=== PATIENT | female | born 1980 | race Caucasian/White ===

== ENCOUNTER 2017-04-16 12:14 | Emergency (ER) | payer BC, OTHER ==
[2017-04-16 12:24] VITALS: BP 129/79; PULSE 102; RESP 20; TEMP 100.4
--- NOTE | 2017-04-16 12:56 | ED ---
ENT HPI - General Chief complaint: ENT Stated complaint: Sore Throat Time Seen by Provider: 04/16/17 12:28 Source: patient Mode of arrival: ambulatory Limitations: no limitations - History of Present Illness MD complaint: sore throat Onset/Timin (Patient woke up with sore throat this morning) -: days(s) Location: throat Severity: moderate Severity scale (1-10): 8 Quality: burning, sharp Consistency: constant Improves with: none Worsens with: swallowing Context-Epistaxis: history of similar (Patient had 2 episodes of strep throat in the past, last one a year ago) Context- Dental: other (Patient had 6 teeth pulled yesterday, 3 on the upper left side and 3 on her lower left side.) Associated Symptoms: fever, pain with swallowing - Related Data Home Medications Medication Instructions Recorded Confirmed Bismuth Subsalicylate 262 mg PO BID PRN 11/03/16 11/03/16 [Pepto-Bismol] Naproxen 500 mg PO Q12HR PRN 11/03/16 11/03/16 Previous Rx's Medication Instructions Recorded Famotidine [Pepcid] 20 mg PO DAILY #7 tablet 11/03/16 Ondansetron Odt [Zofran Odt] 4 mg PO Q8HR PRN #12 tab 11/03/16 Penicillin V Potassium [Pen Vee K] 500 mg PO BID #20 tab 04/16/17 Allergies Allergy/AdvReac Type Severity Reaction Status Date / Time venom-honey bee Allergy Anaphylaxis Verified 11/03/16 16:42 [bee venom (honey bee)] Review of Systems ROS Statement: Those systems with pertinent positive or pertinent negative responses have been documented in the HPI. ROS Other: All systems not noted in ROS Statement are negative. Past Medical History Past Medical History: No Reported History Additional Past Medical History / Comment(s): recent strep throat History of Any Multi-Drug Resistant Organisms: None Reported Past Surgical History: Appendectomy, Cholecystectomy, Hernia Repair, Tubal Ligation Additional Past Surgical History / Comment(s): d&c Past Psychological History: Anxiety, Bipolar, Depression Smoking Status: Current every day smoker Past Alcohol Use History: Occasional Past Drug Use History: None Reported General Exam Limitations: no limitations General appearance: alert, in no apparent distress Head exam: Present: atraumatic, normocephalic, normal inspection Eye exam: Present: normal appearance ENT exam: Present: mucous membranes moist, normal external ear exam Expanded Mouth exam: Present: tongue normal. Absent: drooling, trismus Throat exam: tonsillar erythema, tonsillar exudate (Bilateral) Neck exam: Present: normal inspection, tenderness (Left anterior neck), full ROM , lymphadenopathy (Left cervical lymphadenopathy) Respiratory exam: Present: normal lung sounds bilaterally. Absent: respiratory distress, wheezes, rales, rhonchi, stridor Cardiovascular Exam: Present: normal rhythm, tachycardia, normal heart sounds. Absent: systolic murmur GI/Abdominal exam: Present: soft, normal bowel sounds. Absent: distended, tenderness, guarding, rebound, rigid Extremities exam: Present: normal inspection, full ROM, normal capillary refill. Absent: tenderness Neurological exam: Present: alert, oriented X3, normal gait, other (No focal deficits noted) Psychiatric exam: Present: normal affect, normal mood Skin exam: Present: warm, dry, intact, normal color. Absent: rash Course Vital Signs 04/16/17 12:22 Temperature 100.4 F H Pulse Rate 102 H Respiratory 20 Rate Blood Pressure 129/79 O2 Sat by Pulse 99 Oximetry Medical Decision Making - Medical Decision Making Streptococcal pharyngitis. Patient placed on penicillin for 10 days. Patient instructed to follow-up with primary care physician. Patient instructed to return to the emergency department if symptoms do not improve or get worse. Patient agrees with treatment plan. Discharge instructions and return parameters reviewed. - Lab Data Lab Results 04/16/17 Range/Units 12:25 Group A Strep Rapid Positive A (Negative) Disposition Clinical Impression: Streptococcal sore throat Disposition: HOME SELF-CARE Condition: Good Instructions: Strep Throat (ED) Additional Instructions: Please finish antibiotics as prescribed. Continue Motrin or Tylenol for pain. Follow-up with primary care physician as directed. Please return to the emergency department if symptoms do not improve or get worse. Prescriptions: Penicillin V Potassium [Pen Vee K] 500 mg PO BID #20 tab Referrals: Haim Ash MD [Primary Care Provider] - 1-2 days Time of Disposition: 12:54
== END 2017-04-16 13:10 | disposition home or self-care (01) ==
LOC: EC 12:14
DX: J02.0 Streptococcal pharyngitis (principal); F17.200 Nicotine dependence, unspecified, uncomplicated; Z91.030 Bee allergy status
CPT/HCPCS: 87430; 99283

== ENCOUNTER 2017-06-04 21:46 | Emergency (ER) | payer BC, OTHER ==
[2017-06-04] MEDS ORDERED: SODIUM CHLORIDE 0.9% 1,000 ML IV STA (22:19)
[2017-06-04] MEDS ORDERED: ONDANSETRON 4 MG/2 ML VIAL IVP STA (22:19)
--- NOTE | 2017-06-04 22:33 | ED ---
Nausea/Vomiting/Diarrhea HPI - General Chief complaint: Nausea/Vomiting/Diarrhea Stated complaint: vomiting Time Seen by Provider: 06/04/17 22:15 Source: patient, RN notes reviewed Mode of arrival: ambulatory Limitations: no limitations - History of Present Illness Initial comments: This a 36-year-old female presents emergency Department chief complaint nausea vomiting diarrhea. Patient states his symptoms started primarily this morning she had a few episodes the day but states that it resolved. Patient states she has no abdominal pain this time denies chest pain or shortness of breath. Denies fever, chills, night sweats. Patient states that she's had a prior cholecystomy, appendectomy hernia repair and D&C. She has no dysuria no hematuria denies any flank pain. She states that she's been trying to keep things down throughout the day but states that she is vomiting bile at this time. Denies any hematemesis or coffee-ground emesis. - Related Data Home Medications Medication Instructions Recorded Confirmed Citalopram Hydrobromide [CeleXA] 20 mg PO DAILY 06/04/17 06/04/17 QUEtiapine [SEROquel] 50 mg PO HS 06/04/17 06/04/17 Previous Rx's Medication Instructions Recorded Ondansetron Odt [Zofran Odt] 4 mg PO Q8HR PRN #12 tab 11/03/16 Ondansetron Odt [Zofran Odt] 4 mg PO Q8HR PRN #10 tab 06/05/17 Allergies Allergy/AdvReac Type Severity Reaction Status Date / Time venom-honey bee Allergy Anaphylaxis Verified 06/04/17 22:15 [bee venom (honey bee)] Review of Systems ROS Statement: Those systems with pertinent positive or pertinent negative responses have been documented in the HPI. ROS Other: All systems not noted in ROS Statement are negative. Past Medical History Past Medical History: No Reported History Additional Past Medical History / Comment(s): recent strep throat History of Any Multi-Drug Resistant Organisms: None Reported Past Surgical History: Appendectomy, Cholecystectomy, Hernia Repair, Tubal Ligation Additional Past Surgical History / Comment(s): d&c Past Psychological History: Anxiety, Bipolar, Depression Smoking Status: Current every day smoker Past Alcohol Use History: Occasional Past Drug Use History: None Reported General Exam Limitations: no limitations General appearance: alert, in no apparent distress Head exam: Present: atraumatic, normocephalic, normal inspection Respiratory exam: Present: normal lung sounds bilaterally. Absent: respiratory distress, wheezes, rales, rhonchi, stridor Cardiovascular Exam: Present: regular rate, normal rhythm, normal heart sounds. Absent: systolic murmur, diastolic murmur, rubs, gallop, clicks GI/Abdominal exam: Present: soft, normal bowel sounds. Absent: distended, tenderness, guarding, rebound, rigid Back exam: Absent: CVA tenderness (R), CVA tenderness (L) Skin exam: Present: warm, dry, intact, normal color. Absent: rash Course Vital Signs 06/04/17 22:10 Temperature 99.1 F Pulse Rate 77 Respiratory 20 Rate Blood Pressure 126/77 O2 Sat by Pulse 99 Oximetry Medical Decision Making - Medical Decision Making 36-year-old female presented emergency for nausea vomiting and some diarrhea. Patient's lab work is unremarkable. Patient does feel better after antiemetics , fluids. She most likely has gastroenteritis. Patient discharged on Zofran. Patient will follow-up with primary care physician in one to 2 days patient agrees to plan. - Lab Data Result diagrams: 06/04/17 23:20 06/04/17 23:20 Lab Results 06/04/17 06/04/17 06/04/17 Range/Units 23:20 23:20 23:20 WBC 10.3 (3.8-10.6) k/uL RBC 4.57 (3.80-5.40) m/uL Hgb 14.0 (11.4-16.0) gm/dL Hct 42.2 (34.0-46.0) % MCV 92.2 (80.0-100.0) fL MCH 30.7 (25.0-35.0) pg MCHC 33.3 (31.0-37.0) g/dL RDW 13.6 (11.5-15.5) % Plt Count 296 (150-450) k/uL Neutrophils % 66 % Lymphocytes % 25 % Monocytes % 5 % Eosinophils % 3 % Basophils % 1 % Neutrophils # 6.8 (1.3-7.7) k/uL Lymphocytes # 2.6 (1.0-4.8) k/uL Monocytes # 0.5 (0-1.0) k/uL Eosinophils # 0.3 (0-0.7) k/uL Basophils # 0.1 (0-0.2) k/uL Sodium 141 (137-145) mmol/L Potassium 4.1 (3.5-5.1) mmol/L Chloride 107 (98-107) mmol/L Carbon Dioxide 25 (22-30) mmol/L Anion Gap 9 mmol/L BUN 9 (7-17) mg/dL Creatinine 0.70 (0.52-1.04) mg/dL Est GFR (MDRD) Af Amer >60 (>60 ml/min/1.73 sqM) Est GFR (MDRD) Non-Af >60 (>60 ml/min/1.73 sqM) Glucose 89 (74-99) mg/dL Calcium 9.4 (8.4-10.2) mg/dL Total Bilirubin 0.5 (0.2-1.3) mg/dL AST 19 (14-36) U/L ALT 29 (9-52) U/L Alkaline Phosphatase 97 (38-126) U/L Total Protein 7.2 (6.3-8.2) g/dL Albumin 4.1 (3.5-5.0) g/dL Amylase 64 (30-110) U/L Lipase 109 (23-300) U/L Urine Color Yellow Urine Appearance Clear (Clear) Urine pH 7.5 (5.0-8.0) Ur Specific [place] 1.010 (1.001-1.035) Urine Protein Negative (Negative) Urine Glucose (UA) Negative (Negative) Urine Ketones Negative (Negative) Urine Blood Negative (Negative) Urine Nitrite Negative (Negative) Urine Bilirubin Negative (Negative) Urine Urobilinogen <2.0 (<2.0) mg/dL Ur Leukocyte Esterase Negative (Negative) Urine HCG, Qual (Not Detectd) 06/04/17 Range/Units 23:20 WBC (3.8-10.6) k/uL RBC (3.80-5.40) m/uL Hgb (11.4-16.0) gm/dL Hct (34.0-46.0) % MCV (80.0-100.0) fL MCH (25.0-35.0) pg MCHC (31.0-37.0) g/dL RDW (11.5-15.5) % Plt Count (150-450) k/uL Neutrophils % % Lymphocytes % % Monocytes % % Eosinophils % % Basophils % % Neutrophils # (1.3-7.7) k/uL Lymphocytes # (1.0-4.8) k/uL Monocytes # (0-1.0) k/uL Eosinophils # (0-0.7) k/uL Basophils # (0-0.2) k/uL Sodium (137-145) mmol/L Potassium (3.5-5.1) mmol/L Chloride (98-107) mmol/L Carbon Dioxide (22-30) mmol/L Anion Gap mmol/L BUN (7-17) mg/dL Creatinine (0.52-1.04) mg/dL Est GFR (MDRD) Af Amer (>60 ml/min/1.73 sqM) Est GFR (MDRD) Non-Af (>60 ml/min/1.73 sqM) Glucose (74-99) mg/dL Calcium (8.4-10.2) mg/dL Total Bilirubin (0.2-1.3) mg/dL AST (14-36) U/L ALT (9-52) U/L Alkaline Phosphatase (38-126) U/L Total Protein (6.3-8.2) g/dL Albumin (3.5-5.0) g/dL Amylase (30-110) U/L Lipase (23-300) U/L Urine Color Urine Appearance (Clear) Urine pH (5.0-8.0) Ur Specific [place] (1.001-1.035) Urine Protein (Negative) Urine Glucose (UA) (Negative) Urine Ketones (Negative) Urine Blood (Negative) Urine Nitrite (Negative) Urine Bilirubin (Negative) Urine Urobilinogen (<2.0) mg/dL Ur Leukocyte Esterase (Negative) Urine HCG, Qual Not Detected (Not Detectd) Disposition Clinical Impression: Gastroenteritis Disposition: HOME SELF-CARE Condition: Stable Instructions: Acute Nausea and Vomiting (ED) Additional Instructions: Please return to the Emergency Department if symptoms worsen or any other concerns. Prescriptions: Ondansetron Odt [Zofran Odt] 4 mg PO Q8HR PRN #10 tab PRN Reason: Nausea Referrals: Haim Ash MD [Primary Care Provider] - 1-2 days Time of Disposition: 00:26
[2017-06-04 23:56] LABS: Basophils # (A) 0.1 k/uL (0-0.2); Basophils % (A) 1 %; CH 31.3; CHCM 34.1; Eosinophils # (A) 0.3 k/uL (0-0.7); Eosinophils % (A) 3 %; HCT 42.2 % (34.0-46.0); HDW 2.35; Luc # (Auto) 0.14; Luc % (Auto) 1; Lymphocytes # (A) 2.6 k/uL (1.0-4.8); Lymphocytes % (A) 25 %; MCH 30.7 pg (25.0-35.0); MCHC 33.3 g/dL (31.0-37.0); MCV 92.2 fL (80.0-100.0); Mean Platelet Volume 7.7; Monocytes # (A) 0.5 k/uL (0-1.0); Monocytes % (A) 5 %; Neutrophils # (A) 6.8 k/uL (1.3-7.7); Neutrophils % (A) 66 %; RBC 4.57 m/uL (3.80-5.40); RDW 13.6 % (11.5-15.5); WBC 10.3 k/uL (3.8-10.6); WBC (Perox) 9.81
[2017-06-04 23:57] LABS: Appearance,Urine Clear (Clear); Bilirubin,Urine Negative (Negative); Glucose,Urine (UA) Negative (Negative); Ketones,Urine Negative (Negative); Leukocyte Esterase,Urine Negative (Negative); Nitrite,Urine Negative (Negative); PH, Urine 7.5 (5.0-8.0); Protein,Urine Negative (Negative); UA Billing (MACRO vs. MICRO) CHEM; Urobilinogen,Urine <2.0 mg/dL (<2.0)
[2017-06-05] MEDS ORDERED: ONDANSETRON 4 MG/2 ML VIAL IVP STA (00:08)
[2017-06-05 00:11] LABS: ALT 29 U/L (9-52); AST 19 U/L (14-36); Alkaline Phosphatase 97 U/L (38-126); Amylase 64 U/L (30-110); Anion Gap 9 mmol/L; Blood Urea Nitrogen 9 mg/dL (7-17); Calcium 9.4 mg/dL (8.4-10.2); Carbon Dioxide 25 mmol/L (22-30); Chloride 107 mmol/L (98-107); Glucose 89 mg/dL (74-99); Non-African American GFR(MDRD) >60 (>60 ml/min/1.73 sqM); Potassium 4.1 mmol/L (3.5-5.1); Sodium 141 mmol/L (137-145); Total Bilirubin 0.5 mg/dL (0.2-1.3); Total Protein 7.2 g/dL (6.3-8.2)
[2017-06-05 01:23] VITALS: BP 116/66; PULSE 60; RESP 18; TEMP 97.5
== END 2017-06-05 01:22 | disposition home or self-care (01) ==
LOC: EC 21:46
DX: K52.9 Noninfective gastroenteritis and colitis, unspecified (principal); F31.9 Bipolar disorder, unspecified; F17.200 Nicotine dependence, unspecified, uncomplicated; Z90.49 Acquired absence of other specified parts of digestive tract; Z91.030 Bee allergy status; Z79.899 Other long term (current) drug therapy
CPT/HCPCS: 99284; 96374; 96376; 96361 ×2; 36415; 80053; 82150; 83690; 85025; 81003; 81025; J2405 ×2

== ENCOUNTER 2017-06-07 07:23 | Emergency (ER) | payer BC, OTHER ==
[2017-06-07] MEDS ORDERED: RX INFO: IV CONTRAST WAS GIVEN 1 EACH MISC MISCELLANE PRN (08:20)
[2017-06-07] MEDS ORDERED: SODIUM CHLORIDE 0.9% 1,000 ML IV STA ×2 (08:20)
[2017-06-07] MEDS ORDERED: ONDANSETRON 4 MG/2 ML VIAL IVP STA (08:20)
[2017-06-07] MEDS ORDERED: LORazepam 2 MG/ML SYRINGE IV STA (08:20)
[2017-06-07] MEDS ORDERED: SODIUM CHLORIDE 0.9% 500 ML IV STA (08:20)
[2017-06-07] MEDS ORDERED: MORPHINE SULFATE 4 MG/ML SYRINGE IV STA (08:20)
--- NOTE | 2017-06-07 09:05 | ED ---
General Adult HPI - General Chief complaint: Nausea/Vomiting/Diarrhea Stated complaint: nausea,vomiting Time Seen by Provider: 06/07/17 07:24 Source: patient, EMS, RN notes reviewed, old records reviewed Mode of arrival: EMS Limitations: no limitations - History of Present Illness Initial comments: This is a 36-year-old female to the ER for evaluation. Patient's intake for evaluation of severe nausea vomiting. Intractable nausea vomiting or abdominal pain. No diarrhea no fevers. Patient does have history of gout pain history of cholecystectomy. No again no recent fevers. Patient was in ER 2 days ago for similar symptoms, they had improved but over last night and today have severely worsened. Again no travel history, no family members with similar sick contacts. No diarrhea - Related Data Home Medications Medication Instructions Recorded Confirmed Citalopram Hydrobromide [CeleXA] 20 mg PO DAILY 06/04/17 06/07/17 QUEtiapine [SEROquel] 50 mg PO HS 06/04/17 06/07/17 Previous Rx's Medication Instructions Recorded Ondansetron Odt [Zofran Odt] 4 mg PO Q8HR PRN #12 tab 11/03/16 Allergies Allergy/AdvReac Type Severity Reaction Status Date / Time venom-honey bee Allergy Anaphylaxis Verified 06/07/17 08:32 [bee venom (honey bee)] Review of Systems ROS Statement: Those systems with pertinent positive or pertinent negative responses have been documented in the HPI. ROS Other: All systems not noted in ROS Statement are negative. Past Medical History Past Medical History: No Reported History Additional Past Medical History / Comment(s): recent strep throat History of Any Multi-Drug Resistant Organisms: None Reported Past Surgical History: Appendectomy, Cholecystectomy, Hernia Repair, Tubal Ligation Additional Past Surgical History / Comment(s): d&c Past Psychological History: Anxiety, Bipolar, Depression Smoking Status: Current every day smoker Past Alcohol Use History: Occasional Past Drug Use History: None Reported General Exam Limitations: no limitations General appearance: alert, anxious, in distress Head exam: Present: atraumatic, normocephalic, normal inspection Eye exam: Present: normal appearance, PERRL, EOMI. Absent: scleral icterus, conjunctival injection, periorbital swelling ENT exam: Present: normal exam, mucous membranes moist Neck exam: Present: normal inspection. Absent: tenderness, meningismus, lymphadenopathy Respiratory exam: Present: normal lung sounds bilaterally. Absent: respiratory distress, wheezes, rales, rhonchi, stridor Cardiovascular Exam: Present: regular rate, normal rhythm, normal heart sounds. Absent: systolic murmur, diastolic murmur, rubs, gallop, clicks GI/Abdominal exam: Present: soft, normal bowel sounds. Absent: distended, tenderness, guarding, rebound, rigid Extremities exam: Present: normal inspection, full ROM, normal capillary refill. Absent: tenderness, pedal edema, joint swelling, calf tenderness Back exam: Present: normal inspection Neurological exam: Present: alert, oriented X3, CN II-XII intact Psychiatric exam: Present: normal affect, normal mood Skin exam: Present: warm, dry, intact, normal color. Absent: rash Course Vital Signs 06/07/17 06/07/17 06/07/17 07:25 07:34 08:07 Temperature 96.8 F L 97.4 F L Pulse Rate 73 64 54 L Respiratory 18 18 16 Rate Blood Pressure 171/90 148/65 135/97 O2 Sat by Pulse 100 99 100 Oximetry 06/07/17 06/07/17 08:48 09:59 Temperature 97.8 F 97.6 F Pulse Rate 52 L 72 Respiratory 16 16 Rate Blood Pressure 128/72 92/56 O2 Sat by Pulse 100 96 Oximetry - Reevaluation(s) Reevaluation #1: 06/07/17 09:05 Patient actively vomiting upon arrival to emergency room Reevaluation #2: 06/07/17 09:05 ER visit from 2 days prior is reviewed Medical Decision Making - Medical Decision Making 36 female to the ED co acute nausea vomiting, diarrhea and bowel pain. This point patient's symptoms are improved to resolved. Patient will be discharged home, CT abdomen and pelvis shows likely colitis - Lab Data Result diagrams: 06/07/17 08:43 06/07/17 08:43 Lab Results 06/07/17 06/07/17 06/07/17 Range/Units 08:43 08:43 08:43 WBC 13.1 H (3.8-10.6) k/uL RBC 4.31 (3.80-5.40) m/uL Hgb 13.0 (11.4-16.0) gm/dL Hct 39.6 (34.0-46.0) % MCV 91.9 (80.0-100.0) fL MCH 30.3 (25.0-35.0) pg MCHC 33.0 (31.0-37.0) g/dL RDW 13.7 (11.5-15.5) % Plt Count 291 (150-450) k/uL Neutrophils % 87 % Lymphocytes % 9 % Monocytes % 3 % Eosinophils % 0 % Basophils % 0 % Neutrophils # 11.4 H (1.3-7.7) k/uL Lymphocytes # 1.2 (1.0-4.8) k/uL Monocytes # 0.4 (0-1.0) k/uL Eosinophils # 0.0 (0-0.7) k/uL Basophils # 0.1 (0-0.2) k/uL PT (9.0-12.0) sec INR (<1.2) APTT (22.0-30.0) sec Sodium 144 (137-145) mmol/L Potassium 3.6 (3.5-5.1) mmol/L Chloride 111 H (98-107) mmol/L Carbon Dioxide 21 L (22-30) mmol/L Anion Gap 12 mmol/L BUN 9 (7-17) mg/dL Creatinine 0.77 (0.52-1.04) mg/dL Est GFR (MDRD) Af Amer >60 (>60 ml/min/1.73 sqM) Est GFR (MDRD) Non-Af >60 (>60 ml/min/1.73 sqM) Glucose 134 H (74-99) mg/dL Plasma Lactic Acid [place] (0.7-2.0) mmol/L Calcium 9.1 (8.4-10.2) mg/dL Phosphorus 1.4 L (2.5-4.5) mg/dL Magnesium 1.6 (1.6-2.3) mg/dL Total Bilirubin 0.6 (0.2-1.3) mg/dL AST 16 (14-36) U/L ALT 24 (9-52) U/L Alkaline Phosphatase 94 (38-126) U/L Total Creatine Kinase <20 L (30-135) U/L CK-MB (CK-2) <0.2 (0.0-2.4) ng/mL CK-MB (CK-2) Rel Index Troponin I <0.012 (0.000-0.034) ng/mL Total Protein 6.9 (6.3-8.2) g/dL Albumin 4.0 (3.5-5.0) g/dL Lipase (23-300) U/L Urine Color Urine Appearance (Clear) Urine pH (5.0-8.0) Ur Specific [place] (1.001-1.035) Urine Protein (Negative) Urine Glucose (UA) (Negative) Urine Ketones (Negative) Urine Blood (Negative) Urine Nitrite (Negative) Urine Bilirubin (Negative) Urine Urobilinogen (<2.0) mg/dL Ur Leukocyte Esterase (Negative) Urine RBC (0-5) /hpf Urine WBC (0-5) /hpf Ur Squamous Epith Cells (0-4) /hpf Urine Bacteria (None) /hpf Hyaline Casts (0-2) /lpf Urine Mucus (None) /hpf 06/07/17 06/07/17 06/07/17 Range/Units 08:43 08:43 08:43 WBC (3.8-10.6) k/uL RBC (3.80-5.40) m/uL Hgb (11.4-16.0) gm/dL Hct (34.0-46.0) % MCV (80.0-100.0) fL MCH (25.0-35.0) pg MCHC (31.0-37.0) g/dL RDW (11.5-15.5) % Plt Count (150-450) k/uL Neutrophils % % Lymphocytes % % Monocytes % % Eosinophils % % Basophils % % Neutrophils # (1.3-7.7) k/uL Lymphocytes # (1.0-4.8) k/uL Monocytes # (0-1.0) k/uL Eosinophils # (0-0.7) k/uL Basophils # (0-0.2) k/uL PT 11.3 (9.0-12.0) sec INR 1.1 (<1.2) APTT 22.1 (22.0-30.0) sec Sodium (137-145) mmol/L Potassium (3.5-5.1) mmol/L Chloride (98-107) mmol/L Carbon Dioxide (22-30) mmol/L Anion Gap mmol/L BUN (7-17) mg/dL Creatinine (0.52-1.04) mg/dL Est GFR (MDRD) Af Amer (>60 ml/min/1.73 sqM) Est GFR (MDRD) Non-Af (>60 ml/min/1.73 sqM) Glucose (74-99) mg/dL Plasma Lactic Acid [place] 1.8 (0.7-2.0) mmol/L Calcium (8.4-10.2) mg/dL Phosphorus (2.5-4.5) mg/dL Magnesium (1.6-2.3) mg/dL Total Bilirubin (0.2-1.3) mg/dL AST (14-36) U/L ALT (9-52) U/L Alkaline Phosphatase (38-126) U/L Total Creatine Kinase (30-135) U/L CK-MB (CK-2) (0.0-2.4) ng/mL CK-MB (CK-2) Rel Index Troponin I (0.000-0.034) ng/mL Total Protein (6.3-8.2) g/dL Albumin (3.5-5.0) g/dL Lipase (23-300) U/L Urine Color Yellow Urine Appearance Cloudy H (Clear) Urine pH 8.5 H (5.0-8.0) Ur Specific [place] 1.022 (1.001-1.035) Urine Protein 1+ H (Negative) Urine Glucose (UA) Negative (Negative) Urine Ketones 2+ H (Negative) Urine Blood Negative (Negative) Urine Nitrite Negative (Negative) Urine Bilirubin Negative (Negative) Urine Urobilinogen 2.0 (<2.0) mg/dL Ur Leukocyte Esterase Trace H (Negative) Urine RBC 3 (0-5) /hpf Urine WBC 1 (0-5) /hpf Ur Squamous Epith Cells 10 H (0-4) /hpf Urine Bacteria Rare H (None) /hpf Hyaline Casts 3 H (0-2) /lpf Urine Mucus Few H (None) /hpf 06/07/17 Range/Units 08:43 WBC (3.8-10.6) k/uL RBC (3.80-5.40) m/uL Hgb (11.4-16.0) gm/dL Hct (34.0-46.0) % MCV (80.0-100.0) fL MCH (25.0-35.0) pg MCHC (31.0-37.0) g/dL RDW (11.5-15.5) % Plt Count (150-450) k/uL Neutrophils % % Lymphocytes % % Monocytes % % Eosinophils % % Basophils % % Neutrophils # (1.3-7.7) k/uL Lymphocytes # (1.0-4.8) k/uL Monocytes # (0-1.0) k/uL Eosinophils # (0-0.7) k/uL Basophils # (0-0.2) k/uL PT (9.0-12.0) sec INR (<1.2) APTT (22.0-30.0) sec Sodium (137-145) mmol/L Potassium (3.5-5.1) mmol/L Chloride (98-107) mmol/L Carbon Dioxide (22-30) mmol/L Anion Gap mmol/L BUN (7-17) mg/dL Creatinine (0.52-1.04) mg/dL Est GFR (MDRD) Af Amer (>60 ml/min/1.73 sqM) Est GFR (MDRD) Non-Af (>60 ml/min/1.73 sqM) Glucose (74-99) mg/dL Plasma Lactic Acid [place] (0.7-2.0) mmol/L Calcium (8.4-10.2) mg/dL Phosphorus (2.5-4.5) mg/dL Magnesium (1.6-2.3) mg/dL Total Bilirubin (0.2-1.3) mg/dL AST (14-36) U/L ALT (9-52) U/L Alkaline Phosphatase (38-126) U/L Total Creatine Kinase (30-135) U/L CK-MB (CK-2) (0.0-2.4) ng/mL CK-MB (CK-2) Rel Index Troponin I (0.000-0.034) ng/mL Total Protein (6.3-8.2) g/dL Albumin (3.5-5.0) g/dL Lipase 93 (23-300) U/L Urine Color Urine Appearance (Clear) Urine pH (5.0-8.0) Ur Specific [place] (1.001-1.035) Urine Protein (Negative) Urine Glucose (UA) (Negative) Urine Ketones (Negative) Urine Blood (Negative) Urine Nitrite (Negative) Urine Bilirubin (Negative) Urine Urobilinogen (<2.0) mg/dL Ur Leukocyte Esterase (Negative) Urine RBC (0-5) /hpf Urine WBC (0-5) /hpf Ur Squamous Epith Cells (0-4) /hpf Urine Bacteria (None) /hpf Hyaline Casts (0-2) /lpf Urine Mucus (None) /hpf - Radiology Data Radiology results: report reviewed (CT abdomen and pelvis positive for colitis) , image reviewed Disposition Clinical Impression: Gastroenteritis, Dehydration, Nausea & vomiting Disposition: HOME SELF-CARE Condition: Good Instructions: Acute Diarrhea (ED), Acute Nausea and Vomiting (ED) Referrals: Haim Ash MD [Primary Care Provider] - 1-2 days
[2017-06-07 09:07] LABS: INR 1.1 (<1.2); Partial Thromboplastin Time 22.1 sec (22.0-30.0); Prothrombin Time 11.3 sec (9.0-12.0)
[2017-06-07 09:12] LABS: Basophils # (A) 0.1 k/uL (0-0.2); Basophils % (A) 0 %; CH 31.5; CHCM 34.4; Eosinophils % (A) 0 %; HCT 39.6 % (34.0-46.0); HDW 2.42; Luc # (Auto) 0.08; Luc % (Auto) 1; Lymphocytes # (A) 1.2 k/uL (1.0-4.8); Lymphocytes % (A) 9 %; MCH 30.3 pg (25.0-35.0); MCV 91.9 fL (80.0-100.0); Mean Platelet Volume 7.9; Monocytes # (A) 0.4 k/uL (0-1.0); Monocytes % (A) 3 %; Neutrophils # (A) 11.4 k/uL (1.3-7.7); Neutrophils % (A) 87 %; RBC 4.31 m/uL (3.80-5.40); RDW 13.7 % (11.5-15.5); WBC 13.1 k/uL (3.8-10.6); WBC (Perox) 12.73
[2017-06-07 09:16] LABS: Creatine Kinase <20 U/L (30-135)
[2017-06-07 09:18] LABS: ALT 24 U/L (9-52); AST 16 U/L (14-36); Alkaline Phosphatase 94 U/L (38-126); Anion Gap 12 mmol/L; Blood Urea Nitrogen 9 mg/dL (7-17); Calcium 9.1 mg/dL (8.4-10.2); Carbon Dioxide 21 mmol/L (22-30); Chloride 111 mmol/L (98-107); Glucose 134 mg/dL (74-99); Magnesium 1.6 mg/dL (1.6-2.3); Non-African American GFR(MDRD) >60 (>60 ml/min/1.73 sqM); Phosphorous 1.4 mg/dL (2.5-4.5); Potassium 3.6 mmol/L (3.5-5.1); Sodium 144 mmol/L (137-145); Total Bilirubin 0.6 mg/dL (0.2-1.3); Total Protein 6.9 g/dL (6.3-8.2)
[2017-06-07 09:29] LABS: Creatine Kinase MB <0.2 ng/mL (0.0-2.4); Troponin I <0.012 ng/mL (0.000-0.034)
[2017-06-07 09:33] LABS: Appearance,Urine Cloudy (Clear); Bacteria,Urine Rare /hpf; Bilirubin,Urine Negative (Negative); Glucose,Urine (UA) Negative (Negative); Ketones,Urine 2+ (Negative); Leukocyte Esterase,Urine Trace (Negative); Mucus,Urine Few /hpf; Nitrite,Urine Negative (Negative); PH, Urine 8.5 (5.0-8.0); Particle Count 7553; Protein,Urine 1+ (Negative); RBC,Urine 3 /hpf (0-5); Specific Gravity,Urine 1.022 (1.001-1.035); Squamous Epithelial Cell,Urine 10 /hpf (0-4); UA Billing (MACRO vs. MICRO) MICRO; WBC,Urine 1 /hpf (0-5)
--- NOTE | 2017-06-07 10:12 | CT ---
EXAMINATION TYPE: CT abdomen pelvis w con DATE OF EXAM: 06/07/2017 REFERENCE: Previous study dated 11/03/2016 HISTORY: Pain HISTORY: Nausea and vomiting REFERENCE: NONE CT DLP: 667.80 mGy Automated exposure control for dose reduction was used. TECHNIQUE: Helical acquisition through the abdomen and pelvis was obtained following the oral ingesti on of without Oral Contrast and following intravenous administration of 100 ml mL of Omnipaque 300. T he data was reformatted in axial, coronal and sagittal projections. FINDINGS: Visualized portions of the lungs are clear. There is no pleural or pericardial fluid. The h eart is not enlarged. There is a mild pectus excavatum deformity. Within the abdomen, the liver is mildly prominent measuring 19 cm. The gallbladder is been removed. T he spleen is unremarkable. Both adrenal glands appear normal. Both kidneys demonstrate function and appear morphologically normal. The pancreas is unremarkable. There is no significant retroperitoneal, iliac or inguinal adenopathy. There is a 1.4 cm cyst involving the left ovary. There is follicular change in the right ovary. The u terus is unremarkable. The bladder is not distended. There is some mucosal thickening involving the distal sigmoid colon. This extends to involve the desc ending colon and much of the transverse colon the appendix is not visualized. Small bowel loops are normal. There is no free fluid and no free air. There is a moderate S-shaped scoliosis convex to the right in the thoracic region and to the left in the lumbar region. There is some facet arthropathy at L4-5 particularly on the right. No bony destruc tive lesion is seen. IMPRESSION: 1. MUCOSAL THICKENING INVOLVING MOST OF THE LEFT SIDE OF THE COLON. PLEASE CORRELATE FOR COLITIS. 2. MILD HEPATOMEGALY. 3. 1.4 CM LEFT OVARIAN CYST. 4. SCOLIOSIS.
[2017-06-07 11:05] VITALS: BP 104/58; PULSE 78; RESP 18; TEMP 97.4
== END 2017-06-07 11:06 | disposition home or self-care (01) ==
LOC: EC 07:23
DX: K52.9 Noninfective gastroenteritis and colitis, unspecified (principal); E86.0 Dehydration; F31.9 Bipolar disorder, unspecified; F17.200 Nicotine dependence, unspecified, uncomplicated; Z90.49 Acquired absence of other specified parts of digestive tract; Z98.890 Other specified postprocedural states; Z91.030 Bee allergy status; Z79.899 Other long term (current) drug therapy
CPT/HCPCS: 36415; 80053; 82550; 82553; 83605; 83690; 83735; 84100; 84484; 85025; 85610; 85730; 81001; 87086; 74177; 99285; 96374; 96375 ×2; 96361 ×2; J2060; J2270; J2405; Q9967

== ENCOUNTER 2017-06-10 23:28 | Observation (INO) | payer BC, OTHER ==
[2017-06-10] MEDS ORDERED: SODIUM CHLORIDE 0.9% 1,000 ML IV STA (23:34)
[2017-06-10] MEDS ORDERED: FAMOTIDINE 20 MG/2 ML VIAL IV STA (23:34)
[2017-06-10] MEDS ORDERED: METOCLOPRAMIDE 5 MG/ML 2 ML VIAL IVP STA (23:34)
--- NOTE | 2017-06-10 23:42 | ED ---
General Adult HPI - General Stated complaint: vomiting Time Seen by Provider: 06/10/17 23:30 Source: EMS, RN notes reviewed Mode of arrival: EMS Limitations: no limitations - History of Present Illness Initial comments: 36-year-old female presents to the emergency Department chief complaint of vomiting. Patient states she has had vomiting for the past week and a half or so. Patient states she just continues to have vomiting she has been taking Zofran at home. No one has found the cause for her vomiting. Patient states she has not drank anything she has not had any fevers. Patient states that she eats her belly feels bloated. Patient states she's been here twice for this with no improvement to her symptoms. Patient states she was concerned due to her continued vomiting so she thought that she should be seen. Patient denies any recent fever, chills, shortness of breath, chest pain, back pain, numbness or tingling, dysuria or hematuria, constipation or diarrhea, headaches or visual changes, or any other current symptoms. - Related Data Home Medications Medication Instructions Recorded Confirmed Citalopram Hydrobromide [CeleXA] 20 mg PO DAILY 06/04/17 06/07/17 QUEtiapine [SEROquel] 50 mg PO HS 06/04/17 06/07/17 Previous Rx's Medication Instructions Recorded Ondansetron Odt [Zofran Odt] 4 mg PO Q8HR PRN #12 tab 11/03/16 Allergies Allergy/AdvReac Type Severity Reaction Status Date / Time venom-honey bee Allergy Anaphylaxis Verified 06/10/17 23:36 [bee venom (honey bee)] Review of Systems ROS Statement: Those systems with pertinent positive or pertinent negative responses have been documented in the HPI. ROS Other: All systems not noted in ROS Statement are negative. Past Medical History Past Medical History: No Reported History Additional Past Medical History / Comment(s): recent strep throat History of Any Multi-Drug Resistant Organisms: None Reported Past Surgical History: Appendectomy, Cholecystectomy, Hernia Repair, Tubal Ligation Additional Past Surgical History / Comment(s): d&c Past Psychological History: Anxiety, Bipolar, Depression Smoking Status: Current every day smoker Past Alcohol Use History: Occasional Past Drug Use History: None Reported General Exam - General Exam Comments Initial Comments: General: The patient is awake and alert, in no distress, and does not appear acutely ill. Eye: Pupils are equal, round and reactive to light, extra-ocular movements are intact; there is normal conjunctiva bilaterally. No signs of icterus. Ears, nose, mouth and throat: There are moist mucous membranes and no oral lesions. Neck: The neck is supple, there is no tenderness. Cardiovascular: There is a regular rate and rhythm. No murmur, rub or gallop is appreciated. Respiratory: Lungs are clear to auscultation, respirations are non-labored, breath sounds are equal. No wheezes, stridor, rales, or rhonchi. Gastrointestinal: Soft, non-distended, non-tender abdomen without masses or organomegaly noted. There is no rebound or guarding present. No CVA tenderness. Bowel sounds are unremarkable. Back: There is no tenderness to palpation in the midline. There is no obvious deformity. No rashes noted. Musculoskeletal: Normal ROM, no tenderness, There is no pedal edema. There is no calf tenderness or swelling. Sensation intact. Pulses equal bilaterally 2+. Neurological: CN II-XII intact, There are no obvious motor or sensory deficits. Coordination appears grossly intact. Speech is normal. Skin: Skin is warm and dry and no rashes or lesions are noted. Psychiatric: Cooperative, appropriate mood & affect, normal judgment. Limitations: no limitations Course Vital Signs 06/10/17 23:33 Temperature 99.2 F Pulse Rate 81 Respiratory 18 Rate Blood Pressure 161/93 O2 Sat by Pulse 100 Oximetry Medical Decision Making - Medical Decision Making 36-year-old female presents emergency Department chief complaint of vomiting. At this time lab work has been reviewed as well as previous CAT scan in previous lab work. This time there does not appear to be cause for the patient' s nausea and vomiting. This is patient's third visit and even after multiple doses of nausea medication here she still is having nausea. This time we will admit the patient to Dr. Russ prescription is covering for for, she was covering for of the patient. We will continue the IV medications and feel the patient progresses. Patient is in agreement with this plan. - Lab Data Result diagrams: 06/10/17 23:40 06/10/17 23:40 Lab Results 06/10/17 06/10/17 Range/Units 23:40 23:40 WBC 9.6 (3.8-10.6) k/uL RBC 4.23 (3.80-5.40) m/uL Hgb 13.3 (11.4-16.0) gm/dL Hct 39.4 (34.0-46.0) % MCV 93.0 (80.0-100.0) fL MCH 31.3 (25.0-35.0) pg MCHC 33.7 (31.0-37.0) g/dL RDW 14.0 (11.5-15.5) % Plt Count 263 (150-450) k/uL Neutrophils % 67 % Lymphocytes % 26 % Monocytes % 3 % Eosinophils % 2 % Basophils % 1 % Neutrophils # 6.4 (1.3-7.7) k/uL Lymphocytes # 2.5 (1.0-4.8) k/uL Monocytes # 0.3 (0-1.0) k/uL Eosinophils # 0.2 (0-0.7) k/uL Basophils # 0.1 (0-0.2) k/uL Sodium 143 (137-145) mmol/L Potassium 3.3 L (3.5-5.1) mmol/L Chloride 109 H (98-107) mmol/L Carbon Dioxide 24 (22-30) mmol/L Anion Gap 10 mmol/L BUN 6 L (7-17) mg/dL Creatinine 0.80 (0.52-1.04) mg/dL Est GFR (MDRD) Af Amer >60 (>60 ml/min/1.73 sqM) Est GFR (MDRD) Non-Af >60 (>60 ml/min/1.73 sqM) Glucose 95 (74-99) mg/dL Calcium 8.9 (8.4-10.2) mg/dL Total Bilirubin 0.4 (0.2-1.3) mg/dL AST 15 (14-36) U/L ALT 28 (9-52) U/L Alkaline Phosphatase 88 (38-126) U/L Total Protein 6.8 (6.3-8.2) g/dL Albumin 3.9 (3.5-5.0) g/dL Amylase 54 (30-110) U/L Lipase 157 (23-300) U/L - Radiology Data Radiology results: report reviewed, image reviewed Disposition Clinical Impression: Hypokalemia, Intractable nausea and vomiting, Dehydration Disposition: ADMITTED IP TO THIS [facility] Condition: Stable Referrals: Haim Ash MD [Primary Care Provider] - 1-2 days Time of Disposition: : Decision Date: 06/11/17 Decision Time: :
[2017-06-10 23:56] LABS: Basophils # (A) 0.1 k/uL (0-0.2); Basophils % (A) 1 %; CH 31.5; CHCM 34.1; Eosinophils # (A) 0.2 k/uL (0-0.7); Eosinophils % (A) 2 %; HCT 39.4 % (34.0-46.0); HDW 2.46; HGB 13.3 gm/dL (11.4-16.0); Luc # (Auto) 0.11; Luc % (Auto) 1; Lymphocytes # (A) 2.5 k/uL (1.0-4.8); Lymphocytes % (A) 26 %; MCH 31.3 pg (25.0-35.0); MCHC 33.7 g/dL (31.0-37.0); Mean Platelet Volume 8.4; Monocytes # (A) 0.3 k/uL (0-1.0); Monocytes % (A) 3 %; Neutrophils # (A) 6.4 k/uL (1.3-7.7); Neutrophils % (A) 67 %; RBC 4.23 m/uL (3.80-5.40); WBC 9.6 k/uL (3.8-10.6); WBC (Perox) 9.43
[2017-06-11 00:10] LABS: ALT 28 U/L (9-52); AST 15 U/L (14-36); Alkaline Phosphatase 88 U/L (38-126); Amylase 54 U/L (30-110); Anion Gap 10 mmol/L; Blood Urea Nitrogen 6 mg/dL (7-17); Calcium 8.9 mg/dL (8.4-10.2); Carbon Dioxide 24 mmol/L (22-30); Chloride 109 mmol/L (98-107); Glucose 95 mg/dL (74-99); Non-African American GFR(MDRD) >60 (>60 ml/min/1.73 sqM); Potassium 3.3 mmol/L (3.5-5.1); Sodium 143 mmol/L (137-145); Total Bilirubin 0.4 mg/dL (0.2-1.3); Total Protein 6.8 g/dL (6.3-8.2)
[2017-06-11] MEDS ORDERED: LORazepam 2 MG/ML SYRINGE IV STA (00:29)
--- NOTE | 2017-06-11 01:27 | XR ---
EXAM: XR Abdomen Complete, 2 or More Views CLINICAL HISTORY: Reason: Pain TECHNIQUE: Frontal view of the abdomen/pelvis with upright view of the abdomen. COMPARISON: 11/03/16 FINDINGS: Intraperitoneal space: No free air. Gastrointestinal tract: Unremarkable. No dilation. Organs: Cholecystectomy. Bones/joints: Levoconvex scoliosis. Soft tissues: Bilateral tubal ligation clips. IMPRESSION: No acute findings.
[2017-06-11] MEDS ORDERED: IBUPROFEN 400 MG TAB PO PRN (01:34)
[2017-06-11] MEDS ORDERED: NALOXONE 0.4 MG/ML 1 ML VIAL IV PRN (01:34)
[2017-06-11] MEDS: KETOROLAC 30 MG/ML 1 ML VIAL IVP PRN ×2 (01:52→07:36)
[2017-06-11] MEDS: POTASSIUM CHLORIDE 10 MEQ, LIDOCAINE 2% INJ 10 MG in SODIUM CHLORIDE 0.9% 100 ML IVPB SCH ×2 (02:38→04:23)
[2017-06-11] MEDS: SODIUM CHLORIDE 0.9% 1,000 ML IV SCH ×3 (02:38→22:00)
[2017-06-11 03:02] VITALS: BMI 27.6
[2017-06-11] MEDS: METOCLOPRAMIDE 5 MG/ML 2 ML VIAL IVP SCH ×3 (06:31→18:29)
[2017-06-11] MEDS: LORazepam 2 MG/ML SYRINGE IV PRN (06:32)
[2017-06-11] MEDS: ONDANSETRON 4 MG/2 ML VIAL IVP PRN ×2 (07:37→15:26)
[2017-06-11] MEDS ORDERED: FAMOTIDINE 20 MG/2 ML VIAL IV SCH (09:00)
[2017-06-11] MEDS ORDERED: ESOMEPRAZOLE 20 MG in SODIUM CHLORIDE 0.9% 50 ML IVPB SCH (13:00)
[2017-06-11] MEDS: ESOMEPRAZOLE 40 MG in SODIUM CHLORIDE 0.9% 50 ML IVPB SCH (13:54)
--- NOTE | 2017-06-11 14:07 | P.HPIM ---
History of Present Illness Patient is a pleasant 36-year-old female came in with compensative epigastric abdominal burning sensation along with nausea vomiting has been going on for about a week patient takes ibuprofen on as-needed basis for pain patient does smoke as well. Patient pain he has little bit improved and patient is presently nothing by mouth. Patient was started on famotidine and a discontinued nonsteroidal anti-inflammatory medication patient probably has gastritis patient does not have a gallbladder anymore. Patient denied any fever chills patient and nausea vomiting patient denied any body aches or flulike symptoms. We'll give proton pump inhibitor IV and I will start her on diet and see if she is able to tolerate soft diet patient will be discharged or else will keep her here until tomorrow expecting her gastritic or peptic ulcer disease will improve by tomorrow Review of Systems REVIEW OF SYSTEMS: CONSTITUTIONAL: No fever, no malaise, no fatigue. HEENT: No recent visual problems or hearing problems. Denied any sore throat. CARDIOVASCULAR: No chest pain, orthopnea, PND, no palpitations, no syncope. PULMONARY: No shortness of breath, no cough, no hemoptysis. GASTROINTESTINAL: No diarrhea. NEUROLOGICAL: No headaches, no weakness, no numbness. HEMATOLOGICAL: Denies any bleeding or petechiae. GENITOURINARY: Denies any burning micturition, frequency, or urgency. MUSCULOSKELETAL/RHEUMATOLOGICAL: Denies any joint pain, swelling, or any muscle pain. ENDOCRINE: Denies any polyuria or polydipsia. The rest of the 14-point review of systems is negative. Past Medical History Past Medical History: No Reported History Additional Past Medical History / Comment(s): recent strep throat History of Any Multi-Drug Resistant Organisms: None Reported Past Surgical History: Appendectomy, Cholecystectomy, Hernia Repair, Tubal Ligation Additional Past Surgical History / Comment(s): d&c Past Anesthesia/Blood Transfusion Reactions: No Reported Reaction Past Psychological History: Anxiety, Bipolar, Depression Smoking Status: Current every day smoker Past Alcohol Use History: Occasional Past Drug Use History: None Reported - Past Family History Mother Family Medical History: Cancer Medications and Allergies Home Medications Medication Instructions Recorded Confirmed Type Citalopram Hydrobromide [CeleXA] 20 mg PO DAILY 06/04/17 06/11/17 History QUEtiapine [SEROquel] 50 mg PO HS 06/04/17 06/11/17 History HYDROcodone/APAP 5-325MG [[place] 1 tab PO Q6HR 06/11/17 06/11/17 History 5-325] Allergies Allergy/AdvReac Type Severity Reaction Status Date / Time venom-honey bee Allergy Anaphylaxis Verified 06/11/17 11:36 [bee venom (honey bee)] Physical Exam Vitals: Vital Signs Temp Pulse Pulse Resp BP BP Pulse Ox 06/11/17 12:54 98.1 F 46 L 19 132/76 96 06/11/17 07:57 57 L 06/11/17 07:45 57 L 18 133/73 97 06/11/17 03:10 55 L 06/11/17 02:50 98.3 F 55 L 16 140/61 98 06/11/17 02:22 97.4 F L 90 16 152/60 98 06/11/17 01:35 97.9 F 94 16 154/74 98 06/10/17 23:33 99.2 F 81 18 161/93 100 Intake and Output 06/10/17 06/11/17 06/11/17 22:59 06:59 14:59 Output Total 200 203 Balance -200 -203 Output: Urine 200 Emesis 200 3 Other: # Voids 100 Weight 80.1 kg PHYSICAL EXAMINATION: GENERAL: The patient is alert and oriented x3, not in any acute distress. Well developed, well nourished. HEENT: Pupils are round and equally reacting to light. EOMI. No scleral icterus. No conjunctival pallor. Normocephalic, atraumatic. No pharyngeal erythema. No thyromegaly. CARDIOVASCULAR: S1 and S2 present. No murmurs, rubs, or gallops. PULMONARY: Chest is clear to auscultation, no wheezing or crackles. ABDOMEN: Soft, nontender, nondistended, normoactive bowel sounds. No palpable organomegaly. MUSCULOSKELETAL: No joint swelling or deformity. EXTREMITIES: No cyanosis, clubbing, or pedal edema. NEUROLOGICAL: Gross neurological examination did not reveal any focal deficits. SKIN: No rashes. Results CBC & Chem 7: 06/10/17 23:40 06/10/17 23:40 Labs: Abnormal Lab Results - Last 24 Hours (Table) 06/10/17 Range/Units 23:40 Potassium 3.3 L (3.5-5.1) mmol/L Chloride 109 H (98-107) mmol/L BUN 6 L (7-17) mg/dL Thrombosis Risk Factor Assmnt - Choose All That Apply Each Factor Represents 1 point: Obesity (BMI >25) Other Risk Factors: No Other congenital or acquired thrombophilia - If yes, enter type in comment: No Thrombosis Risk Factor Assessment Total Risk Factor Score: 1 Thrombosis Risk Factor Assessment Level: Low Risk Assessment and Plan Plan: #1 abdominal pain nausea vomiting: Secondary to peptic ulcer disease or gastritis patient will be started on proton inhibitor will if patient improves patient discharged today are as patient will be discharged tomorrow if she has symptomatic improvement by tomorrow. Nonsteroidal anti-inflammatory medications will be discontinued and will use Tylenol for pain. #2 hypokalemia secondary to nausea vomiting: Potassium was supplemented #3 anxiety and depression: We'll continue with his home medications for that #4 nicotine dependence: Counseling was provided
[2017-06-11] MEDS: ACETAMINOPHEN TAB 325 MG TAB PO PRN (22:04)
[2017-06-12] MEDS: METOCLOPRAMIDE 5 MG/ML 2 ML VIAL IVP SCH ×5 (00:27→23:56)
[2017-06-12] MEDS: ONDANSETRON 4 MG/2 ML VIAL IVP PRN ×3 (03:08→20:18)
[2017-06-12] MEDS: SODIUM CHLORIDE 0.9% 1,000 ML IV SCH ×3 (06:06→23:15)
[2017-06-12 06:35] LABS: Basophils % (A) 1 %; CH 31.3; CHCM 33.2; Eosinophils # (A) 0.1 k/uL (0-0.7); Eosinophils % (A) 1 %; HCT 37.2 % (34.0-46.0); HDW 2.45; HGB 12.8 gm/dL (11.4-16.0); Luc # (Auto) 0.12; Luc % (Auto) 1; Lymphocytes # (A) 2.4 k/uL (1.0-4.8); Lymphocytes % (A) 25 %; MCH 32.6 pg (25.0-35.0); MCHC 34.3 g/dL (31.0-37.0); MCV 94.9 fL (80.0-100.0); Mean Platelet Volume 8.5; Monocytes # (A) 0.4 k/uL (0-1.0); Monocytes % (A) 4 %; Neutrophils # (A) 6.6 k/uL (1.3-7.7); Neutrophils % (A) 69 %; RBC 3.92 m/uL (3.80-5.40); RDW 14.1 % (11.5-15.5); WBC 9.6 k/uL (3.8-10.6); WBC (Perox) 9.83
[2017-06-12 06:56] LABS: ALT 30 U/L (9-52); AST 15 U/L (14-36); Alkaline Phosphatase 75 U/L (38-126); Anion Gap 8 mmol/L; Blood Urea Nitrogen 7 mg/dL (7-17); Calcium 8.9 mg/dL (8.4-10.2); Carbon Dioxide 24 mmol/L (22-30); Chloride 108 mmol/L (98-107); Glucose 93 mg/dL (74-99); Non-African American GFR(MDRD) >60 (>60 ml/min/1.73 sqM); Potassium 3.8 mmol/L (3.5-5.1); Sodium 140 mmol/L (137-145); Total Bilirubin 0.6 mg/dL (0.2-1.3); Total Protein 6.4 g/dL (6.3-8.2)
[2017-06-12] MEDS: ACETAMINOPHEN TAB 325 MG TAB PO PRN ×2 (07:01→14:52)
[2017-06-12] MEDS: ESOMEPRAZOLE 40 MG in SODIUM CHLORIDE 0.9% 50 ML IVPB SCH (08:27)
--- NOTE | 2017-06-12 14:04 | P.DS ---
Providers Date of admission: 06/11/17 01:39 Attending physician: Georgina Russ Primary care physician: Haim Nilsa [facility] Hospital Course: Patient is a 37-year-old female came in with nausea vomiting secondary to gastritis or peptic is a disease symptoms which improved with Protonix patient cannot take nonsteroidal anti-inflammatory medications. Patient Will be discharged today if she is able to tolerate full liquid diet today. And patient will follow with primary care physician as an outpatient. If patient symptoms doesn't improve will consult gastroenterology for possible upper GI endoscopy today. PHYSICAL EXAMINATION: GENERAL: The patient is alert and oriented x3, not in any acute distress. Well developed, well nourished. HEENT: Pupils are round and equally reacting to light. EOMI. No scleral icterus. No conjunctival pallor. Normocephalic, atraumatic. No pharyngeal erythema. No thyromegaly. CARDIOVASCULAR: S1 and S2 present. No murmurs, rubs, or gallops. PULMONARY: Chest is clear to auscultation, no wheezing or crackles. ABDOMEN: Soft, nontender, nondistended, normoactive bowel sounds. No palpable organomegaly. MUSCULOSKELETAL: No joint swelling or deformity. EXTREMITIES: No cyanosis, clubbing, or pedal edema. NEUROLOGICAL: Gross neurological examination did not reveal any focal deficits. SKIN: No rashes. #1 abdominal pain nausea vomiting: Secondary to peptic ulcer disease or gastritis #2 hypokalemia secondary to nausea vomiting: Potassium was supplemented #3 anxiety and depression: We'll continue with his home medications for that #4 nicotine dependence: Counseling was provided Patient Condition at Discharge: Stable Plan - Discharge Summary New Discharge Prescriptions: New Omeprazole [PriLOSEC] 40 mg PO AC-BRKFST #30 capsule. No Action Ondansetron Odt [Zofran Odt] 4 mg PO Q8HR PRN #12 tab PRN Reason: Nausea Citalopram Hydrobromide [CeleXA] 20 mg PO DAILY QUEtiapine [SEROquel] 50 mg PO HS HYDROcodone/APAP 5-325MG [[place] 5-325] 1 tab PO Q6HR Discharge Medication List Ondansetron Odt [Zofran Odt] 4 mg PO Q8HR PRN #12 tab 11/03/16 [Rx] Citalopram Hydrobromide [CeleXA] 20 mg PO DAILY 06/04/17 [History] QUEtiapine [SEROquel] 50 mg PO HS 06/04/17 [History] HYDROcodone/APAP 5-325MG [[place] 5-325] 1 tab PO Q6HR 06/11/17 [History] Omeprazole [PriLOSEC] 40 mg PO AC-BRKFST #30 capsule. 06/12/17 [Rx] Follow up Appointment(s)/Referral(s): Haim Ash MD [Primary Care Provider] - 3 Days Discharge Disposition: HOME SELF-CARE
[2017-06-12] MEDS: NICOTINE 21MG/24HR PATCH TRANSDERM SCH (15:33)
[2017-06-12] MEDS: LORazepam 2 MG/ML SYRINGE IV PRN ×2 (17:36→23:46)
[2017-06-13] MEDS: ONDANSETRON 4 MG/2 ML VIAL IVP PRN ×2 (04:54→19:59)
[2017-06-13] MEDS: LORazepam 2 MG/ML SYRINGE IV PRN ×3 (05:35→23:26)
[2017-06-13] MEDS: METOCLOPRAMIDE 5 MG/ML 2 ML VIAL IVP SCH ×4 (06:19→23:26)
[2017-06-13] MEDS: SODIUM CHLORIDE 0.9% 1,000 ML IV SCH ×4 (07:42→23:40)
[2017-06-13] MEDS: ESOMEPRAZOLE 40 MG in SODIUM CHLORIDE 0.9% 50 ML IVPB SCH (09:29)
--- NOTE | 2017-06-13 10:17 | P.CONS ---
History of Present Illness - Reason for Consult Consult date: 06/13/17 Nausea vomiting Requesting physician: Emily Lamas - History of Present Illness 36-year-old female PMH bipolar depression, cholecystectomy, presents with intractable nausea vomiting 1 week with intermittent nonbloody diarrhea. Diarrhea has subsided. Patient has a history of nausea vomiting that intermittently comes and goes. Last episode of persistent nausea vomiting with 6 months ago. No history of EGD. No changes in medications. No alcohol. Denies abdominal pain, hematemesis hematochezia melena or weight loss. Presently she is hungry requesting diet. Abdominal x-rays no acute findings. LFTs normal. BUN 7. Creatinine 0.7. Hemoglobin 12.8. White count 9.6. Lipase 157. Review of Systems Constitutional: Denies fever, chills, sweats, weight gain, or loss. HEENT: Negative for migraines, blurred vision or loss, earaches, drainage, tinnitus, oral mucosal lesions, dysphagia, or odynophagia. CARDIAC: Negative for chest pain, arrhythmias, or palpitation. RESPIRATORY: Cigarette dependency. Negative for shortness of breath, hemoptysis , cough, or sputum production. GI: See HPI for pertinent findings. : Negative for hematuria, urgency, frequency, polyuria, or dysuria. GYNc: Denies possibility of . Negative vaginal discharge. MUSCULOSKELETAL: Negative for muscle aches, swelling, arthritis, and arthralgias. NEUROLOGIC: Negative for stroke or TIA. ENDOCRINE: Negative for thyroid problems. SKIN: Negative for rash or itching. PSYCHIATRIC: Bipolar depression. All systems: negative (See HPI) Past Medical History Past Medical History: No Reported History Additional Past Medical History / Comment(s): recent strep throat History of Any Multi-Drug Resistant Organisms: None Reported Past Surgical History: Appendectomy, Cholecystectomy, Hernia Repair, Tubal Ligation Additional Past Surgical History / Comment(s): d&c Past Anesthesia/Blood Transfusion Reactions: No Reported Reaction Past Psychological History: Anxiety, Bipolar, Depression Smoking Status: Current every day smoker Past Alcohol Use History: Occasional Past Drug Use History: None Reported - Past Family History Mother Family Medical History: Cancer Medications and Allergies Home Medications Medication Instructions Recorded Confirmed Type Citalopram Hydrobromide [CeleXA] 20 mg PO DAILY 06/04/17 06/11/17 History QUEtiapine [SEROquel] 50 mg PO HS 06/04/17 06/11/17 History HYDROcodone/APAP 5-325MG [[place] 1 tab PO Q6HR 06/11/17 06/11/17 History 5-325] Allergies Allergy/AdvReac Type Severity Reaction Status Date / Time venom-honey bee Allergy Anaphylaxis Verified 06/11/17 11:36 [bee venom (honey bee)] Physical Exam Vitals: Vital Signs Temp Pulse Resp BP BP Pulse Ox 06/13/17 09:20 98.3 F 59 L 18 142/73 95 06/13/17 02:45 98.8 F 58 L 18 132/83 97 06/12/17 20:45 98.3 F 66 16 154/90 100 06/12/17 16:50 98.3 F 69 16 159/91 98 06/12/17 12:23 98.3 F 55 L 18 152/86 97 Intake and Output 06/12/17 06/13/17 06/13/17 22:59 06:59 14:59 Intake Total 950 Output Total 1750 1600 Balance -1750 -650 Intake: Intake, IV Titration 950 Amount Sodium Chloride 0.9% 1, 950 000 ml @ 120 mls/hr IV . Q8H20M [facility] Rx#:[id number] Output: Urine 1630 1600 Emesis 120 Other: # Voids 1 # Emeses 1 General appearance: The patient is alert, oriented, in no acute distress. HET: Head is normocephalic and atraumatic. Pupils are equal and reactive. Oropharynx is clear without lesions. Neck: Supple without lymphadenopathy. Trachea midline. Heart: S1 S2. Regular rate and rhythm. Lungs: No crackles or wheezes are heard. Abdomen: Soft, nontender, nondistended with bowel sounds. No peritoneal signs. No palpable organomegaly or masses. Extremities: Normal skin color and turgor. No cyanosis, rash, ulceration, clubbing, or edema. Radial and pedal pulses are 2/4 bilaterally. Neurological: No focal deficits. Strength and sensation are grossly intact. Results CBC & Chem 7: 06/12/17 06:24 06/12/17 06:24 Abdominal x-ray: report reviewed (Dr. Lewis) Assessment and Plan (1) Nausea & vomiting Narrative/Plan: Possible gastroenteritis Status: Acute Plan: 1. EGD recommended however patient would like to eat breakfast and if tolerated she would like to be discharged and follow up in GI office in 1-2 weeks. If patient does not tolerate breakfast we'll proceed with EGD evaluation tomorrow morning. Patient is agreeable with this plan of care. The faculty head has discussed the risks, benefits and alternative therapies for the above-mentioned procedure and for both sedation/analgesia as well as necessary blood product administration, if indicated, as they pertain to this patient. The patient has indicated understanding and acceptance of the risks and procedures discussed. Thank you for this kind referral and the opportunity to participate in the care of your patient. This consultation was discussed with Dr. Lewis. The impression and plan of care have been directed as dictated.
--- NOTE | 2017-06-13 12:43 | P.PN ---
Subjective Patient is a 37-year-old female came in with nausea vomiting secondary to gastritis or peptic ulcer disease. Patient was evaluated negative gastroenterology and patient is unable to tolerate soft diet today. Patient probably will undergo upper GI endoscopy tomorrow. Objective - Vital Signs Vital signs: Vital Signs Temp 98.3 F 06/13/17 09:20 Pulse 59 L 06/13/17 09:20 Resp 18 06/13/17 09:20 BP 142/73 06/13/17 09:20 Pulse Ox 95 06/13/17 09:20 Intake & Output 06/12/17 06/13/17 06/13/17 18:59 06:59 18:59 Intake Total 950 120 Output Total 1250 2500 1000 Balance -1250 -1550 -880 Weight 80.1 kg Intake: Intake, IV Titration 950 Amount Sodium Chloride 0.9% 1, 950 000 ml @ 120 mls/hr IV . Q8H20M [facility] Rx#:[id number] Oral 120 Output: Urine 1100 2380 1000 Urine/Stool Mix 150 Emesis 120 Other: Voiding Method Toilet # Voids 100 1 # Emeses 1 1 - Exam GENERAL: The patient is alert and oriented x3, not in any acute distress. Well developed, well nourished. HEENT: Pupils are round and equally reacting to light. EOMI. No scleral icterus. No conjunctival pallor. Normocephalic, atraumatic. No pharyngeal erythema. No thyromegaly. CARDIOVASCULAR: S1 and S2 present. No murmurs, rubs, or gallops. PULMONARY: Chest is clear to auscultation, no wheezing or crackles. ABDOMEN: Soft, nontender, nondistended, normoactive bowel sounds. No palpable organomegaly. MUSCULOSKELETAL: No joint swelling or deformity. EXTREMITIES: No cyanosis, clubbing, or pedal edema. NEUROLOGICAL: Gross neurological examination did not reveal any focal deficits. SKIN: No rashes. - Labs CBC & Chem 7: 06/12/17 06:24 06/12/17 06:24 Assessment and Plan Plan: #1 abdominal pain nausea vomiting: Secondary to peptic ulcer disease or gastritis patient will be started on proton inhibitor . Patient can use to have these symptoms of nausea and retching with soft diet patient probably will undergo upper GI endoscopy tomorrow. Nonsteroidal anti-inflammatory medications were discontinued and will use Tylenol for pain. #2 hypokalemia secondary to nausea vomiting: Potassium was supplemented #3 anxiety and depression: We'll continue with his home medications for that #4 nicotine dependence: Counseling was provided
[2017-06-13] MEDS: CITALOPRAM HYDROBROMIDE 20 MG TAB PO SCH (14:00)
[2017-06-13] MEDS: NICOTINE 21MG/24HR PATCH TRANSDERM SCH (14:01)
[2017-06-13] MEDS: ACETAMINOPHEN TAB 325 MG TAB PO PRN (15:40)
[2017-06-13 17:09] VITALS: RESP 16
[2017-06-13] MEDS ORDERED: QUEtiapine 50 MG TAB PO SCH (21:00)
[2017-06-14] MEDS: METOCLOPRAMIDE 5 MG/ML 2 ML VIAL IVP SCH ×2 (06:12→12:41)
[2017-06-14 08:03] LABS: Anion Gap 9 mmol/L; Blood Urea Nitrogen 4 mg/dL (7-17); Calcium 8.6 mg/dL (8.4-10.2); Carbon Dioxide 25 mmol/L (22-30); Chloride 105 mmol/L (98-107); Glucose 82 mg/dL (74-99); Non-African American GFR(MDRD) >60 (>60 ml/min/1.73 sqM); Potassium 3.3 mmol/L (3.5-5.1); Sodium 139 mmol/L (137-145)
[2017-06-14] MEDS: ESOMEPRAZOLE 40 MG in SODIUM CHLORIDE 0.9% 50 ML IVPB SCH (08:26)
[2017-06-14] MEDS: NICOTINE 21MG/24HR PATCH TRANSDERM SCH (08:26)
[2017-06-14] MEDS: SODIUM CHLORIDE 0.9% 1,000 ML IV SCH (08:27)
[2017-06-14] MEDS ORDERED: PROPOFOL 10 MG/ML 20 ML VIAL IV ONE (11:19)
[2017-06-14] MEDS ORDERED: LIDOCAINE 1% INJ 10MG/ML (20 ML MDV) ONE (11:19)
[2017-06-14] MEDS ORDERED: IV FLUID CONTINUATION 1,000 ML IV ONE (11:22)
--- NOTE | 2017-06-14 11:32 | P.PCN ---
Date of Procedure: 06/14/17 Preoperative Diagnosis: Postoperative Diagnosis: Procedure(s) Performed: BRIEF HISTORY: Patient is a 36-year-old, pleasant, white female, scheduled for an upper endoscopy for evaluation of persistent nausea vomiting for the last 1 week duration. She completed severe epigastric discomfort also. Presently on proton pump inhibitors and still remains symptomatic. PROCEDURE PERFORMED: Esophagogastroduodenoscopy with biopsy PREOPERATIVE DIAGNOSIS: Persistent nausea/vomiting and epigastric pain of 1 week duration. IV sedation per anesthesia. PROCEDURE: After informed consent was obtained, the patient was brought into the endoscopy unit. IV sedation was administered by Anesthesia under continuous monitoring. Initially the Olympus GIF-140 video endoscope was inserted into the mouth. Esophagus intubated without any difficulty. It was gradually advanced into the stomach and duodenum and carefully examined. The bulb and the second part of the duodenum appeared normal. In the second part of the duodenum there was a 1 cm polyp identified and this was biopsied and it appears to represent a mucocele. The scope at this time was withdrawn to the stomach, adequately insufflated with air, and upon careful examination, mucosa of the antrum, had mild gastritis and biopsies were done from this area. The body, cardia and the fundus appeared normal. The scope was then withdrawn into the esophagus. Small hiatal hernia noted. The GE junction was located at 39 cm from the incisors. There were superficial erosions at the GE junction consistent with LA grade B reflux esophagitis. Rest of the esophagus appeared normal and the patient tolerated the procedure well. IMPRESSION: 1. 1 m duodenal polyp status post biopsy. 2. Mild antral gastritis. 3. Small hiatal hernia and LA grade B reflux esophagitis RECOMMENDATIONS: The findings of this examination were discussed with the patient as well as a family. She was advised to follow with the biopsy results. Her diet will be advanced as tolerated today. She will be continued on proton pump inhibitors and was briefly treated about antireflux measures. Implants: Indications for Procedure: Operative Findings: Description of Procedure:
[2017-06-14] MEDS ORDERED: Potassium Replacement Protocol 1 EACH MISC MISCELLANE PRN (12:13)
[2017-06-14] MEDS: LORazepam 2 MG/ML SYRINGE IV PRN (12:35)
[2017-06-14] MEDS: CITALOPRAM HYDROBROMIDE 20 MG TAB PO SCH (12:35)
[2017-06-14] MEDS ORDERED: POTASSIUM CHLORIDE 10 MEQ, LIDOCAINE 2% INJ 10 MG in SODIUM CHLORIDE 0.9% 100 ML IV SCH (13:00)
[2017-06-14] MEDS: POTASSIUM CHLORIDE ER 20 MEQ TAB.ER PO SCH ×2 (13:59→15:40)
--- NOTE | 2017-06-14 14:26 | P.DS ---
Providers Date of admission: 06/11/17 01:39 Attending physician: Georgina Russ Consults: 06/12/17 18:19 Consult Physician Urgent Consulting Provider: Yareli Lewis Consult Reason/Comments: n/v Do you want consulting provider notified?: Already Contacted Primary care physician: Haim [facility] Course: Patient is a 37-year-old female came in with nausea vomiting secondary to gastritis or peptic ulcer disease. Because of her unresolving symptoms and prolonged symptoms patient underwent upper GI endoscopy which showed hiatal hernia and gastritis and antral area. Patient will be discharged on Prilosec for about a month and follow up with gastro-oncology as an outpatient. We'll advance the diet to soft diet. if she is able to tolerate his diet patient will be discharged PHYSICAL EXAMINATION: GENERAL: The patient is alert and oriented x3, not in any acute distress. Well developed, well nourished. HEENT: Pupils are round and equally reacting to light. EOMI. No scleral icterus. No conjunctival pallor. Normocephalic, atraumatic. No pharyngeal erythema. No thyromegaly. CARDIOVASCULAR: S1 and S2 present. No murmurs, rubs, or gallops. PULMONARY: Chest is clear to auscultation, no wheezing or crackles. ABDOMEN: Soft, nontender, nondistended, normoactive bowel sounds. No palpable organomegaly. MUSCULOSKELETAL: No joint swelling or deformity. EXTREMITIES: No cyanosis, clubbing, or pedal edema. NEUROLOGICAL: Gross neurological examination did not reveal any focal deficits. SKIN: No rashes. #1 gastritis and hiatal hernia #2 hypokalemia secondary to nausea vomiting: Potassium was supplemented #3 anxiety and depression: We'll continue with his home medications for that #4 nicotine dependence: Counseling was provided Patient Condition at Discharge: Stable Plan - Discharge Summary New Discharge Prescriptions: New Omeprazole [PriLOSEC] 40 mg PO AC-BRKFST #30 capsule.dr Wilson Hydrox/Al Hydrox/Simeth [Maalox] 30 ml PO BID #600 ml No Action Ondansetron Odt [Zofran Odt] 4 mg PO Q8HR PRN #12 tab PRN Reason: Nausea Citalopram Hydrobromide [CeleXA] 20 mg PO DAILY QUEtiapine [SEROquel] 50 mg PO HS HYDROcodone/APAP 5-325MG [[place] 5-325] 1 tab PO Q6HR Discharge Medication List Ondansetron Odt [Zofran Odt] 4 mg PO Q8HR PRN #12 tab 11/03/16 [Rx] Citalopram Hydrobromide [CeleXA] 20 mg PO DAILY 06/04/17 [History] QUEtiapine [SEROquel] 50 mg PO HS 06/04/17 [History] HYDROcodone/APAP 5-325MG [[place] 5-325] 1 tab PO Q6HR 06/11/17 [History] Omeprazole [PriLOSEC] 40 mg PO AC-BRKFST #30 capsule. 06/12/17 [Rx] Mag Hydrox/Al Hydrox/Simeth [Maalox] 30 ml PO BID #600 ml 06/14/17 [Rx] Follow up Appointment(s)/Referral(s): Yareli Lewis MD [STAFF PHYSICIAN] - 2 Weeks [facility], [NON-STAFF] - 1 Week Haim Ash MD [Primary Care Provider] - 3 Days Discharge Disposition: HOME SELF-CARE
[2017-06-14 14:49] VITALS: TEMP 97.7
[2017-06-14 14:50] VITALS: BP 148/90; PULSE 66
== END 2017-06-14 16:15 | disposition home or self-care (01) ==
LOC: EC 23:28 → 6PED 06-11 01:39
PROVIDERS: ADMIT Internal Medicine; ATTEND Internal Medicine
DX: K29.70 Gastritis, unspecified, without bleeding (principal); K31.7 Polyp of stomach and duodenum; K44.9 Diaphragmatic hernia without obstruction or gangrene; K21.0 Gastro-esophageal reflux disease with esophagitis; E87.6 Hypokalemia; F31.9 Bipolar disorder, unspecified; F41.9 Anxiety disorder, unspecified; F17.200 Nicotine dependence, unspecified, uncomplicated; K27.9 Peptic ulcer, site unspecified, unspecified as acute or chronic, without hemorrhage or perforation; Z79.899 Other long term (current) drug therapy; Z91.030 Bee allergy status
CPT/HCPCS: 96375 ×8; 96361 ×3; 96365; 96366; 96367; 96376 ×4; 99285; 36415; 93005; 88305; 80053 ×2; 80048; 82150; 83690; 83735; 85025 ×2; 88342; 81025; 74020; 43239; G0378 ×4; S4990 ×3; J2001 ×3; J2060 ×4; J2765 ×5; J2405 ×3; J3480 ×2; J1885; J2704

== ENCOUNTER 2017-09-06 17:00 | Emergency (ER) | payer BC, OTHER ==
[2017-09-06 17:16] VITALS: RESP 16; TEMP 98
[2017-09-06] MEDS ORDERED: METOCLOPRAMIDE 5 MG/ML 2 ML VIAL IVP STA (17:27)
[2017-09-06] MEDS ORDERED: MORPHINE SULFATE 2 MG/ML SYRINGE IVP STA (17:27)
[2017-09-06] MEDS ORDERED: KETOROLAC 30 MG/ML 1 ML VIAL IVP STA (17:27)
[2017-09-06] MEDS ORDERED: PANTOPRAZOLE 40 MG/10 ML VIAL IVP STA (17:27)
[2017-09-06] MEDS ORDERED: SODIUM CHLORIDE 0.9% 1,000 ML IV STA (17:27)
[2017-09-06] MEDS ORDERED: diphenhydrAMINE 50 MG/ML 1 ML VIAL IVP STA (17:27)
[2017-09-06] MEDS ORDERED: SODIUM CHLORIDE 0.9% 2,000 ML IV STA (17:27)
--- NOTE | 2017-09-06 17:38 | ED ---
Nausea/Vomiting/Diarrhea HPI - General Chief complaint: Nausea/Vomiting/Diarrhea Stated complaint: vomiting diarrhea Time Seen by Provider: 09/06/17 17:20 Source: patient, EMS, RN notes reviewed, old records reviewed Mode of arrival: EMS Limitations: no limitations - History of Present Illness Initial comments: This is a 37-year-old female presenting to emergency Department chief complaint of intractable vomiting since noon today. Patient reports she's also multiple episodes of diarrhea yesterday. She reports that she's had this happen every few months. She was admitted in late May and had an upper GI scope. She reports that she's had no blood in her diarrhea worse vomit. She reports no difficulty with urination. She states that she does have diffuse abdominal pain related to the multiple times she's been vomiting. Denies any cough, chest pain or shortness breath. She does feel extremely chilled. Patient denies emergency department somewhat diaphoretic. No history of sick contacts. Ports that she is currently on her menstrual cycle. Patient denies any recent fever, chills, shortness of breath, chest pain, back pain, abdominal pain, nausea vomiting, numbness or tingling, dysuria or hematuria, constipation or diarrhea, headaches or visual changes, or any other current symptoms - Related Data Home Medications Medication Instructions Recorded Confirmed Citalopram Hydrobromide [CeleXA] 20 mg PO DAILY 06/04/17 09/06/17 QUEtiapine [SEROquel] 50 mg PO HS 06/04/17 09/06/17 Previous Rx's Medication Instructions Recorded Ondansetron Odt [Zofran Odt] 4 mg PO Q8HR PRN #12 tab 11/03/16 Metoclopramide [Reglan] 5 mg PO ACHS #12 tab 09/06/17 Allergies Allergy/AdvReac Type Severity Reaction Status Date / Time venom-honey bee Allergy Anaphylaxis Verified 09/06/17 17:57 [bee venom (honey bee)] Review of Systems ROS Statement: Those systems with pertinent positive or pertinent negative responses have been documented in the HPI. ROS Other: All systems not noted in ROS Statement are negative. Past Medical History Past Medical History: No Reported History, GERD/Reflux Additional Past Medical History / Comment(s): hiatal hernia, gastritis History of Any Multi-Drug Resistant Organisms: None Reported Past Surgical History: Appendectomy, Cholecystectomy, Hernia Repair, Tubal Ligation Additional Past Surgical History / Comment(s): d&c Past Anesthesia/Blood Transfusion Reactions: No Reported Reaction Past Psychological History: Anxiety, Bipolar, Depression Smoking Status: Current every day smoker Past Alcohol Use History: Occasional Past Drug Use History: None Reported - Past Family History Mother Family Medical History: Cancer General Exam - General Exam Comments Initial Comments: Diaphoretic 37 year old female. Limitations: no limitations General appearance: alert, in no apparent distress Head exam: Present: atraumatic, normocephalic, normal inspection Eye exam: Present: normal appearance, PERRL, EOMI. Absent: scleral icterus, conjunctival injection, periorbital swelling ENT exam: Present: normal exam, mucous membranes moist Neck exam: Present: normal inspection. Absent: tenderness, meningismus, lymphadenopathy Respiratory exam: Present: normal lung sounds bilaterally. Absent: respiratory distress, wheezes, rales, rhonchi, stridor Cardiovascular Exam: Present: regular rate, normal rhythm, normal heart sounds. Absent: systolic murmur, diastolic murmur, rubs, gallop, clicks GI/Abdominal exam: Present: soft, tenderness (left upper quadrant ), normal bowel sounds. Absent: distended, guarding, rebound, rigid Extremities exam: Present: normal inspection, full ROM, normal capillary refill. Absent: tenderness, pedal edema, joint swelling, calf tenderness Back exam: Present: normal inspection Neurological exam: Present: alert, oriented X3, CN II-XII intact Psychiatric exam: Present: normal affect, normal mood Skin exam: Present: warm, dry, intact, normal color. Absent: rash Course Vital Signs 09/06/17 17:13 Temperature 98 F Pulse Rate 80 Respiratory 16 Rate Blood Pressure 137/86 O2 Sat by Pulse 999 H Oximetry - Reevaluation(s) Reevaluation #1: 09/06/17 18:54 Was reevaluated and is feeling much better at this time. Patient states that her abdominal pain subsided and she would like to go home. Medical Decision Making - Medical Decision Making 37-year-old field since emergency department with acute onset of nausea and vomiting as well as multiple episodes of diarrhea last night into today. Patient was given IV fluids and laboratory obtained. Patient's labwork was reviewed and unremarkable. She has some mild epigastric tenderness on exam. KUB x-ray shows no free air. Patient is given Protonix, Reglan and Benadryl. Patient was reevaluated shortly after and is feeling better at this time. Patient does have Zofran at home. I discussed with the patient for Reglan and have her follow-up with her primary care provider. Patient will also be advised to take the next Work, and return to the emergency department if any further alarming signs or symptoms occur. Patient agrees to treatment plan will comply. Return parameters were discussed. - Lab Data Result diagrams: 09/06/17 17:32 09/06/17 17:32 Lab Results 09/06/17 09/06/17 09/06/17 Range/Units 17:32 17:32 17:32 WBC 12.2 H (3.8-10.6) k/uL RBC 4.57 (3.80-5.40) m/uL Hgb 14.1 (11.4-16.0) gm/dL Hct 43.7 (34.0-46.0) % MCV 95.8 (80.0-100.0) fL MCH 30.8 (25.0-35.0) pg MCHC 32.1 (31.0-37.0) g/dL RDW 12.7 (11.5-15.5) % Plt Count 289 (150-450) k/uL Neutrophils % 79 % Lymphocytes % 16 % Monocytes % 4 % Eosinophils % 1 % Basophils % 0 % Neutrophils # 9.6 H (1.3-7.7) k/uL Lymphocytes # 1.9 (1.0-4.8) k/uL Monocytes # 0.5 (0-1.0) k/uL Eosinophils # 0.1 (0-0.7) k/uL Basophils # 0.0 (0-0.2) k/uL Sodium 143 (137-145) mmol/L Potassium 3.9 (3.5-5.1) mmol/L Chloride 109 H (98-107) mmol/L Carbon Dioxide 22 (22-30) mmol/L Anion Gap 12 mmol/L BUN 9 (7-17) mg/dL Creatinine 0.80 (0.52-1.04) mg/dL Est GFR (MDRD) Af Amer >60 (>60 ml/min/1.73 sqM) Est GFR (MDRD) Non-Af >60 (>60 ml/min/1.73 sqM) Glucose 120 H (74-99) mg/dL Plasma Lactic Acid Ruben 1.4 (0.7-2.0) mmol/L Calcium 9.5 (8.4-10.2) mg/dL Total Bilirubin 0.3 (0.2-1.3) mg/dL AST 17 (14-36) U/L ALT 32 (9-52) U/L Alkaline Phosphatase 91 (38-126) U/L Total Protein 7.4 (6.3-8.2) g/dL Albumin 4.2 (3.5-5.0) g/dL Amylase 75 (30-110) U/L Lipase 132 (23-300) U/L Urine Color Urine Appearance (Clear) Urine pH (5.0-8.0) Ur Specific [place] (1.001-1.035) Urine Protein (Negative) Urine Glucose (UA) (Negative) Urine Ketones (Negative) Urine Blood (Negative) Urine Nitrite (Negative) Urine Bilirubin (Negative) Urine Urobilinogen (<2.0) mg/dL Ur Leukocyte Esterase (Negative) Urine RBC (0-5) /hpf Urine WBC (0-5) /hpf Ur Squamous Epith Cells (0-4) /hpf Urine Bacteria (None) /hpf Hyaline Casts (0-2) /lpf Urine Mucus (None) /hpf 09/06/ Range/Units 18:15 WBC (3.8-10.6) k/uL RBC (3.80-5.40) m/uL Hgb (11.4-16.0) gm/dL Hct (34.0-46.0) % MCV (80.0-100.0) fL MCH (25.0-35.0) pg MCHC (31.0-37.0) g/dL RDW (11.5-15.5) % Plt Count (150-450) k/uL Neutrophils % % Lymphocytes % % Monocytes % % Eosinophils % % Basophils % % Neutrophils # (1.3-7.7) k/uL Lymphocytes # (1.0-4.8) k/uL Monocytes # (0-1.0) k/uL Eosinophils # (0-0.7) k/uL Basophils # (0-0.2) k/uL Sodium (137-145) mmol/L Potassium (3.5-5.1) mmol/L Chloride (98-107) mmol/L Carbon Dioxide (22-30) mmol/L Anion Gap mmol/L BUN (7-17) mg/dL Creatinine (0.52-1.04) mg/dL Est GFR (MDRD) Af Amer (>60 ml/min/1.73 sqM) Est GFR (MDRD) Non-Af (>60 ml/min/1.73 sqM) Glucose (74-99) mg/dL Plasma Lactic Acid Ruben (0.7-2.0) mmol/L Calcium (8.4-10.2) mg/dL Total Bilirubin (0.2-1.3) mg/dL AST (14-36) U/L ALT (9-52) U/L Alkaline Phosphatase (38-126) U/L Total Protein (6.3-8.2) g/dL Albumin (3.5-5.0) g/dL Amylase (30-110) U/L Lipase (23-300) U/L Urine Color Yellow Urine Appearance Cloudy H (Clear) Urine pH 6.5 (5.0-8.0) Ur Specific [place] 1.021 (1.001-1.035) Urine Protein 1+ H (Negative) Urine Glucose (UA) Negative (Negative) Urine Ketones Negative (Negative) Urine Blood Moderate H (Negative) Urine Nitrite Negative (Negative) Urine Bilirubin Negative (Negative) Urine Urobilinogen 2.0 (<2.0) mg/dL Ur Leukocyte Esterase Moderate H (Negative) Urine RBC >182 H (0-5) /hpf Urine WBC 5 (0-5) /hpf Ur Squamous Epith Cells 3 (0-4) /hpf Urine Bacteria Rare H (None) /hpf Hyaline Casts 6 H (0-2) /lpf Urine Mucus Moderate H (None) /hpf - Radiology Data Radiology results: report reviewed Review x-ray was reviewed shows no evidence of free air. Normal bowel gas pattern. Disposition Clinical Impression: Gastroenteritis Disposition: HOME SELF-CARE Condition: Good Instructions: Acute Nausea and Vomiting (ED) Additional Instructions: Patient advised to rest, increase fluids. Follow-up with primary care provider within the next 1-2 days. Return to the emergency department if any alarming signs or symptoms occur. Prescriptions: Metoclopramide [Reglan] 5 mg PO ACHS #12 tab Referrals: Haim Ash MD [Primary Care Provider] - 1-2 days Time of Disposition: 18:56
[2017-09-06 17:53] LABS: ALT 32 U/L (9-52); AST 17 U/L (14-36); Alkaline Phosphatase 91 U/L (38-126); Amylase 75 U/L (30-110); Anion Gap 12 mmol/L; Blood Urea Nitrogen 9 mg/dL (7-17); Calcium 9.5 mg/dL (8.4-10.2); Carbon Dioxide 22 mmol/L (22-30); Chloride 109 mmol/L (98-107); Glucose 120 mg/dL (74-99); Non-African American GFR(MDRD) >60 (>60 ml/min/1.73 sqM); Potassium 3.9 mmol/L (3.5-5.1); Sodium 143 mmol/L (137-145); Total Bilirubin 0.3 mg/dL (0.2-1.3); Total Protein 7.4 g/dL (6.3-8.2)
[2017-09-06 17:56] LABS: Basophils % (A) 0 %; CH 31.3; CHCM 32.9; Eosinophils # (A) 0.1 k/uL (0-0.7); Eosinophils % (A) 1 %; HCT 43.7 % (34.0-46.0); HDW 2.34; HGB 14.1 gm/dL (11.4-16.0); Luc # (Auto) 0.08; Luc % (Auto) 1; Lymphocytes # (A) 1.9 k/uL (1.0-4.8); Lymphocytes % (A) 16 %; MCH 30.8 pg (25.0-35.0); MCHC 32.1 g/dL (31.0-37.0); MCV 95.8 fL (80.0-100.0); Mean Platelet Volume 7.3; Monocytes # (A) 0.5 k/uL (0-1.0); Monocytes % (A) 4 %; Neutrophils # (A) 9.6 k/uL (1.3-7.7); Neutrophils % (A) 79 %; RBC 4.57 m/uL (3.80-5.40); RDW 12.7 % (11.5-15.5); WBC 12.2 k/uL (3.8-10.6); WBC (Perox) 11.58
[2017-09-06 18:34] LABS: Appearance,Urine Cloudy (Clear); Bacteria,Urine Rare /hpf; Bilirubin,Urine Negative (Negative); Glucose,Urine (UA) Negative (Negative); Ketones,Urine Negative (Negative); Leukocyte Esterase,Urine Moderate (Negative); Mucus,Urine Moderate /hpf; Nitrite,Urine Negative (Negative); PH, Urine 6.5 (5.0-8.0); Particle Count 13227; Protein,Urine 1+ (Negative); RBC,Urine >182 /hpf (0-5); Specific Gravity,Urine 1.021 (1.001-1.035); Squamous Epithelial Cell,Urine 3 /hpf (0-4); UA Billing (MACRO vs. MICRO) MICRO; WBC,Urine 5 /hpf (0-5)
--- NOTE | 2017-09-06 19:04 | XR ---
EXAMINATION TYPE: XR KUB DATE OF EXAM: 09/06/2017 COMPARISON: 11/03/2016 HISTORY: Pain with vomiting and diarrhea TECHNIQUE: 2 upright views FINDINGS: The visualized lung bases and pleural spaces are negative. Cardiac silhouette is unremarkab le. Bowel gas pattern is normal. There is no pneumatosis and no pneumoperitoneum. Soft tissues are unremarkable. 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 No focal skeletal findings. IMPRESSION: NO ACUTE PROCESS.
[2017-09-06 19:14] VITALS: BP 147/68; PULSE 66
== END 2017-09-06 19:14 | disposition home or self-care (01) ==
LOC: EC 17:00
DX: K52.9 Noninfective gastroenteritis and colitis, unspecified (principal); K21.9 Gastro-esophageal reflux disease without esophagitis; F31.9 Bipolar disorder, unspecified; F41.9 Anxiety disorder, unspecified; F17.200 Nicotine dependence, unspecified, uncomplicated; Z79.899 Other long term (current) drug therapy; Z91.030 Bee allergy status; Z90.49 Acquired absence of other specified parts of digestive tract
CPT/HCPCS: 99284 ×2; 96374 ×2; 96375 ×5; 96361 ×3; 36415; 80053; 82150; 83605; 83690; 85025; 81001; 87040; 74000; J1200; J2765; J1885; J2270; C9113

== ENCOUNTER 2017-09-07 13:38 | Emergency (ER) | payer BC ==
[2017-09-07] MEDS ORDERED: METOCLOPRAMIDE 5 MG/ML 2 ML VIAL IVP STA (14:05)
[2017-09-07] MEDS ORDERED: diphenhydrAMINE 50 MG/ML 1 ML VIAL IVP STA (14:05)
[2017-09-07] MEDS ORDERED: FAMOTIDINE 20 MG/2 ML VIAL IV STA (14:05)
[2017-09-07] MEDS ORDERED: SODIUM CHLORIDE 0.9% 1,000 ML IV STA (14:05)
--- NOTE | 2017-09-07 14:08 | ED ---
General Adult HPI - General Chief complaint: Nausea/Vomiting/Diarrhea Stated complaint: Vomiting Time Seen by Provider: 09/07/17 13:56 Source: patient, RN notes reviewed Mode of arrival: ambulatory - History of Present Illness Initial comments: 37-year-old female presents to the emergency department with a chief complaint of nausea and vomiting. Patient states she has 6 vomiting syndrome and was seen here yesterday for the nausea and vomiting. Patient states she went home and she continued nausea and vomiting even know that she was given Reglan. Patient states that she just has not improved and she is not feeling better so she thought that she should be evaluated. Patient denies any recent fever, chills, shortness of breath, chest pain, back pain, abdominal pain, numbness or tingling, dysuria or hematuria, constipation or diarrhea, headaches or visual changes, or any other current symptoms. - Related Data Home Medications Medication Instructions Recorded Confirmed Citalopram Hydrobromide [CeleXA] 20 mg PO DAILY 06/04/17 09/07/17 QUEtiapine [SEROquel] 50 mg PO HS 06/04/17 09/07/17 Previous Rx's Medication Instructions Recorded Ondansetron Odt [Zofran Odt] 4 mg PO Q8HR PRN #12 tab 11/03/16 Metoclopramide [Reglan] 5 mg PO ACHS #12 tab 09/06/17 Allergies Allergy/AdvReac Type Severity Reaction Status Date / Time venom-honey bee Allergy Anaphylaxis Verified 09/07/17 13:52 [bee venom (honey bee)] Review of Systems ROS Statement: Those systems with pertinent positive or pertinent negative responses have been documented in the HPI. ROS Other: All systems not noted in ROS Statement are negative. Past Medical History Past Medical History: No Reported History, GERD/Reflux Additional Past Medical History / Comment(s): hiatal hernia, gastritis History of Any Multi-Drug Resistant Organisms: None Reported Past Surgical History: Appendectomy, Cholecystectomy, Hernia Repair, Tubal Ligation Additional Past Surgical History / Comment(s): d&c Past Anesthesia/Blood Transfusion Reactions: No Reported Reaction Past Psychological History: Anxiety, Bipolar, Depression Smoking Status: Current every day smoker Past Alcohol Use History: Occasional Past Drug Use History: None Reported - Past Family History Mother Family Medical History: Cancer General Exam - General Exam Comments Initial Comments: General: The patient is awake and alert, in no distress, and does not appear acutely ill. Eye: Pupils are equal, round and reactive to light, extra-ocular movements are intact; there is normal conjunctiva bilaterally. No signs of icterus. Ears, nose, mouth and throat: There are moist mucous membranes. Neck: The neck is supple, there is no tenderness. Cardiovascular: There is a regular rate and rhythm. No murmur, rub or gallop is appreciated. Respiratory: Lungs are clear to auscultation, respirations are non-labored, breath sounds are equal. No wheezes, stridor, rales, or rhonchi. Gastrointestinal: Soft, non-distended, non-tender abdomen without masses or organomegaly noted. There is no rebound or guarding present. No CVA tenderness. Bowel sounds are unremarkable. Back: There is no tenderness to palpation in the midline. There is no obvious deformity. No rashes noted. Musculoskeletal: Normal ROM, no tenderness, There is no pedal edema. There is no calf tenderness or swelling. Sensation intact. Pulses equal bilaterally 2+. Neurological: CN II-XII intact, There are no obvious motor or sensory deficits. Coordination appears grossly intact. Speech is normal. Skin: Skin is warm and dry and no rashes or lesions are noted. Psychiatric: Cooperative, appropriate mood & affect, normal judgment. Course Vital Signs 09/07/17 13:45 Temperature 99.9 F H Pulse Rate 61 Respiratory 18 Rate Blood Pressure 128/91 O2 Sat by Pulse 99 Oximetry Medical Decision Making - Medical Decision Making 37-year-old female presents emergency Department chief complaint of nausea and vomiting with a history of cyclic vomiting syndrome. At this time the patient was reassessed states she is feeling better. Patient has had no vomiting and lab work is reviewed. At this time we will discharge the patient. We discussed follow-up return parameters outpatient and family's questions. They stated the Mike on questions have been answered. This time the patient will be discharged home. - Lab Data Result diagrams: 09/07/17 14:20 09/07/17 14:20 Lab Results 09/07/17 09/07/17 Range/Units 14:20 14:20 WBC 11.6 H (3.8-10.6) k/uL RBC 4.61 (3.80-5.40) m/uL Hgb 14.3 (11.4-16.0) gm/dL Hct 43.0 (34.0-46.0) % MCV 93.1 (80.0-100.0) fL MCH 30.9 (25.0-35.0) pg MCHC 33.2 (31.0-37.0) g/dL RDW 12.7 (11.5-15.5) % Plt Count 287 (150-450) k/uL Neutrophils % 74 % Lymphocytes % 19 % Monocytes % 5 % Eosinophils % 1 % Basophils % 0 % Neutrophils # 8.5 H (1.3-7.7) k/uL Lymphocytes # 2.2 (1.0-4.8) k/uL Monocytes # 0.6 (0-1.0) k/uL Eosinophils # 0.1 (0-0.7) k/uL Basophils # 0.0 (0-0.2) k/uL Sodium 143 (137-145) mmol/L Potassium 3.7 (3.5-5.1) mmol/L Chloride 107 (98-107) mmol/L Carbon Dioxide 24 (22-30) mmol/L Anion Gap 12 mmol/L BUN 10 (7-17) mg/dL Creatinine 0.85 (0.52-1.04) mg/dL Est GFR (MDRD) Af Amer >60 (>60 ml/min/1.73 sqM) Est GFR (MDRD) Non-Af >60 (>60 ml/min/1.73 sqM) Glucose 101 H (74-99) mg/dL Calcium 9.7 (8.4-10.2) mg/dL Total Bilirubin 0.5 (0.2-1.3) mg/dL AST 20 (14-36) U/L ALT 25 (9-52) U/L Alkaline Phosphatase 92 (38-126) U/L Total Protein 7.9 (6.3-8.2) g/dL Albumin 4.6 (3.5-5.0) g/dL Amylase 68 (30-110) U/L Lipase 138 (23-300) U/L - Radiology Data Radiology results: report reviewed, image reviewed Disposition Clinical Impression: Nausea & vomiting Disposition: HOME SELF-CARE Condition: Stable Instructions: Acute Nausea and Vomiting (ED) Additional Instructions: Please use medication as discussed. Please follow up with family doctor if symptoms have not improved over the next two days. Please return to the emergency room if your symptoms increase or worsen or for any other concerns. Referrals: Haim Ash MD [Primary Care Provider] - 1-2 days
[2017-09-07 14:32] LABS: Basophils % (A) 0 %; CH 31.2; CHCM 33.7; Eosinophils # (A) 0.1 k/uL (0-0.7); Eosinophils % (A) 1 %; HDW 2.29; HGB 14.3 gm/dL (11.4-16.0); Luc % (Auto) 1; Lymphocytes # (A) 2.2 k/uL (1.0-4.8); Lymphocytes % (A) 19 %; MCH 30.9 pg (25.0-35.0); MCHC 33.2 g/dL (31.0-37.0); MCV 93.1 fL (80.0-100.0); Mean Platelet Volume 7.7; Monocytes # (A) 0.6 k/uL (0-1.0); Monocytes % (A) 5 %; Neutrophils # (A) 8.5 k/uL (1.3-7.7); Neutrophils % (A) 74 %; RBC 4.61 m/uL (3.80-5.40); RDW 12.7 % (11.5-15.5); WBC 11.6 k/uL (3.8-10.6); WBC (Perox) 11.43
[2017-09-07 14:43] LABS: ALT 25 U/L (9-52); AST 20 U/L (14-36); Alkaline Phosphatase 92 U/L (38-126); Amylase 68 U/L (30-110); Anion Gap 12 mmol/L; Blood Urea Nitrogen 10 mg/dL (7-17); Calcium 9.7 mg/dL (8.4-10.2); Carbon Dioxide 24 mmol/L (22-30); Chloride 107 mmol/L (98-107); Glucose 101 mg/dL (74-99); Non-African American GFR(MDRD) >60 (>60 ml/min/1.73 sqM); Potassium 3.7 mmol/L (3.5-5.1); Sodium 143 mmol/L (137-145); Total Bilirubin 0.5 mg/dL (0.2-1.3); Total Protein 7.9 g/dL (6.3-8.2)
--- NOTE | 2017-09-07 14:55 | XR ---
EXAMINATION TYPE: XR abdomen 2V DATE OF EXAM: 09/07/2017 COMPARISON: 06/11/2017 HISTORY: Abdominal pain and nausea TECHNIQUE: Two view abdominal series FINDINGS: The osseous structures are intact. The bowel gas pattern is nonspecific. Lung bases are clear. Scol iosis noted with surgical clips in the right upper quadrant. Postsurgical change in the pelvis. Scler osis involving the left femoral head noted. IMPRESSION: 1. Nonspecific abdomen.
[2017-09-07 15:33] VITALS: BP 150/87; PULSE 60; RESP 16; TEMP 98.9
== END 2017-09-07 15:49 | disposition home or self-care (01) ==
LOC: EC 13:38
DX: R11.2 Nausea with vomiting, unspecified (principal); F31.9 Bipolar disorder, unspecified; F17.200 Nicotine dependence, unspecified, uncomplicated; Z79.899 Other long term (current) drug therapy; Z91.030 Bee allergy status; Z90.49 Acquired absence of other specified parts of digestive tract
CPT/HCPCS: 99284 ×2; 96374 ×2; 96375 ×3; 96361 ×2; 36415; 80053; 82150; 83690; 85025; 74020; J1200; J2765

== ENCOUNTER 2017-10-12 11:10 | Emergency (ER) | payer BC, OTHER ==
[2017-10-12 11:30] VITALS: BP 110/62; PULSE 86; RESP 16; TEMP 97.7
--- NOTE | 2017-10-12 11:44 | ED ---
General Adult HPI - General Chief complaint: Upper Respiratory Infection Stated complaint: ENT Time Seen by Provider: 10/12/17 11:36 Source: patient, RN notes reviewed Mode of arrival: ambulatory Limitations: no limitations - History of Present Illness Initial comments: Patient is 37-year-old male who presents emergency room today with chief complaint of a possible strep throat. She does admit that it started to bother last night. States it hurts when she swallows. Doesn't smoke glands. Patient does admit to white exudate. States she's on antibiotics of Bactrim for urinary tract infection. Patient denies any bites or symptoms. Patient denies any recent fever, chills, shortness of breath, chest pain, back pain, abdominal pain, nausea or vomiting, numbness or tingling, constipation or diarrhea, headaches or visual changes, or any other complaints. - Related Data Home Medications Medication Instructions Recorded Confirmed Citalopram Hydrobromide [CeleXA] 20 mg PO DAILY 06/04/17 09/07/17 QUEtiapine [SEROquel] 50 mg PO HS 06/04/17 09/07/17 Sulfamethox-Tmp 800-160Mg [Bactrim 1 tab PO Q12HR 10/12/17 10/12/17 DS 800-160 mg] Previous Rx's Medication Instructions Recorded Amoxicillin 500 mg PO Q8H 10 Days day 10/12/17 Nystatin 100,000 Unit/ml Susp 5 ml PO QID 10 Days ml 10/12/17 [Mycostatin Oral Susp] Allergies Allergy/AdvReac Type Severity Reaction Status Date / Time venom-honey bee Allergy Anaphylaxis Verified 09/07/17 13:52 [bee venom (honey bee)] Review of Systems ROS Statement: Those systems with pertinent positive or pertinent negative responses have been documented in the HPI. ROS Other: All systems not noted in ROS Statement are negative. Past Medical History Past Medical History: No Reported History, GERD/Reflux Additional Past Medical History / Comment(s): hiatal hernia, gastritis History of Any Multi-Drug Resistant Organisms: None Reported Past Surgical History: Appendectomy, Cholecystectomy, Hernia Repair, Tubal Ligation Additional Past Surgical History / Comment(s): d&c Past Anesthesia/Blood Transfusion Reactions: No Reported Reaction Past Psychological History: Anxiety, Bipolar, Depression Smoking Status: Current every day smoker Past Alcohol Use History: Occasional Past Drug Use History: None Reported - Past Family History Mother Family Medical History: Cancer General Exam - General Exam Comments Initial Comments: General: The patient is awake and alert, in no distress, and does not appear acutely ill. Eye: Pupils are equal, round and reactive to light, extra-ocular movements are intact. No nystagmus. There is normal conjunctiva bilaterally. No signs of icterus. Ears, nose, mouth and throat: There are moist mucous membranes and no oral lesions. Increased redness or erythema to the posterior pharynx with positive exudate. Uvula midline. Patient swallows without difficulty. There is white patches to the tongue consistent with thrush infection. Neck: The neck is supple, there is no tenderness or JVD. Cardiovascular: There is a regular rate and rhythm. No murmur, rub or gallop is appreciated. Respiratory: Lungs are clear to auscultation, respirations are non-labored, breath sounds are equal. No wheezes, stridor, rales, or rhonchi. Musculoskeletal: Normal ROM, no tenderness. Strength 5/5. Sensation intact. Pulses equal bilaterally 2+. Neurological: A&O x 3. CN II-XII intact, There are no obvious motor or sensory deficits. Coordination appears grossly intact. Speech is normal. Skin: Skin is warm and dry and no rashes or lesions are noted. Psychiatric: Cooperative, appropriate mood & affect, normal judgment. Limitations: no limitations Course Vital Signs 10/12/17 11:26 Temperature 97.7 F Pulse Rate 86 Respiratory 16 Rate Blood Pressure 110/62 O2 Sat by Pulse 98 Oximetry Medical Decision Making - Medical Decision Making Patient will be treated for both thrush and covered with antibiotics for strep throat. Advised follow-up the family is return here to the emergency room for new concerns. Disposition Clinical Impression: Acute pharyngitis, Oral thrush Disposition: HOME SELF-CARE Condition: Good Instructions: Strep Throat (ED) Additional Instructions: Please use medication as discussed. Please follow-up with family doctor in the next 2 days of symptoms have not improved. Please return to emergency room if the symptoms increase or worsen or for any other concerns. Prescriptions: Amoxicillin 500 mg PO Q8H 10 Days day Nystatin 100,000 Unit/ml Susp [Mycostatin Oral Susp] 5 ml PO QID 10 Days ml Referrals: Haim Ash MD [Primary Care Provider] - 1-2 days Time of Disposition: 11:42
== END 2017-10-12 11:56 | disposition home or self-care (01) ==
LOC: EC 11:10
DX: J02.9 Acute pharyngitis, unspecified (principal); B37.0 Candidal stomatitis; F31.9 Bipolar disorder, unspecified; F41.9 Anxiety disorder, unspecified; F17.200 Nicotine dependence, unspecified, uncomplicated; Z79.899 Other long term (current) drug therapy; Z91.030 Bee allergy status
CPT/HCPCS: 99283

== ENCOUNTER 2018-07-27 21:09 | Emergency (ER) | payer BC, OTHER ==
--- NOTE | 2018-07-27 21:38 | ED ---
Female Urogenital HPI - General Chief complaint: Urogenital Stated complaint: Female Time Seen by Provider: 07/27/18 21:27 Source: patient Mode of arrival: ambulatory Limitations: no limitations - History of Present Illness Initial comments: 's patient is a 37-year-old woman who presents with concern that she is developing urinary tract infection. She states she is having symptoms that are similar to 2 previous urinary tract infections she states she does have a fair number of these since about 2003. She indicates pain in the low abdomen and the lower right back. Came on about 24 hours ago. It is aching, constant, and it does get worse with urination. She also is going more frequently. The patient denies nausea, vomiting, or any change in bowel movements. Patient denies any vaginal discharge and indicates that her last period was normal, being about 3 weeks ago. MD Complaint: pelvic pain Onset/Timin -: hour(s) Location: suprapubic Radiation: R flank Severity: moderate Quality: aching Consistency: constant Improves with: none Worsens with: urination Last Menstrual Period: 07/07/18 Patient : No Associated Symptoms: denies other symptoms - Related Data Home Medications Medication Instructions Recorded Confirmed Citalopram Hydrobromide [CeleXA] 20 mg PO DAILY 06/04/17 10/12/17 Acetaminophen Tab [Tylenol Tab] 650 mg PO Q6H PRN 07/27/18 07/27/18 Calcium Carbonate [Tums] 500 mg PO TID PRN 07/27/18 07/27/18 Previous Rx's Medication Instructions Recorded Ciprofloxacin HCl [Cipro] 500 mg PO Q12HR #14 tablet 07/27/18 Allergies Allergy/AdvReac Type Severity Reaction Status Date / Time venom-honey bee Allergy Anaphylaxis Verified 07/27/18 21:45 [bee venom (honey bee)] Review of Systems ROS Statement: Those systems with pertinent positive or pertinent negative responses have been documented in the HPI. ROS Other: All systems not noted in ROS Statement are negative. Constitutional: Denies: fever, chills, weakness Respiratory: Denies: cough, dyspnea Cardiovascular: Denies: chest pain Gastrointestinal: Reports: as per HPI, abdominal pain. Denies: nausea, vomiting , diarrhea Genitourinary: Reports: frequency. Denies: dysuria, hematuria, discharge, abnormal menses Musculoskeletal: Denies: back pain Skin: Denies: rash Neurological: Denies: headache Past Medical History Past Medical History: GERD/Reflux Additional Past Medical History / Comment(s): hiatal hernia, gastritis History of Any Multi-Drug Resistant Organisms: None Reported Past Surgical History: Appendectomy, Cholecystectomy, Hernia Repair, Tubal Ligation Additional Past Surgical History / Comment(s): d&c Past Anesthesia/Blood Transfusion Reactions: No Reported Reaction Past Psychological History: Anxiety, Bipolar, Depression Smoking Status: Current every day smoker Past Alcohol Use History: Occasional Past Drug Use History: None Reported - Past Family History Mother Family Medical History: Cancer General Exam Limitations: no limitations General appearance: alert, in no apparent distress Head exam: Present: atraumatic, normocephalic Eye exam: Present: normal appearance. Absent: scleral icterus, conjunctival injection Respiratory exam: Present: normal lung sounds bilaterally. Absent: respiratory distress, wheezes, rales, rhonchi, stridor Cardiovascular Exam: Present: regular rate, normal rhythm, normal heart sounds. Absent: systolic murmur, diastolic murmur, rubs, gallop GI/Abdominal exam: Present: soft. Absent: distended, tenderness, guarding, rebound, mass Extremities exam: Present: normal inspection, normal capillary refill. Absent: pedal edema, calf tenderness Back exam: Present: normal inspection. Absent: CVA tenderness (R), CVA tenderness (L) Neurological exam: Present: alert Skin exam: Present: warm, dry, intact, normal color. Absent: rash Course Vital Signs 07/27/18 21:15 Temperature 98.2 F Pulse Rate 74 Respiratory 16 Rate Blood Pressure 136/73 O2 Sat by Pulse 100 Oximetry Medical Decision Making - Lab Data Lab Results 07/27/18 Range/Units 21:27 Urine Color Light Yellow Urine Appearance Cloudy H (Clear) Urine pH 6.5 (5.0-8.0) Ur Specific [place] 1.009 (1.001-1.035) Urine Protein 1+ H (Negative) Urine Glucose (UA) Negative (Negative) Urine Ketones Negative (Negative) Urine Blood Small H (Negative) Urine Nitrite Positive H (Negative) Urine Bilirubin Negative (Negative) Urine Urobilinogen <2.0 (<2.0) mg/dL Ur Leukocyte Esterase Large H (Negative) Urine RBC 4 (0-5) /hpf Urine WBC 112 H (0-5) /hpf Ur Squamous Epith Cells 10 H (0-4) /hpf Urine Bacteria Many H (None) /hpf Urine Mucus Rare H (None) /hpf Urine Yeast (Budding) Many H (None) /hpf Disposition Clinical Impression: Urinary tract infection Disposition: HOME SELF-CARE Condition: Good Instructions: Urinary Tract Infection in Women (ED) Prescriptions: Ciprofloxacin HCl [Cipro] 500 mg PO Q12HR #14 tablet Is patient prescribed a controlled substance at d/c from ED?: No Referrals: Haim Ash MD [Primary Care Provider] - 1-2 days
[2018-07-27 21:40] LABS: Appearance,Urine Cloudy (Clear); Bacteria,Urine Many /hpf; Bilirubin,Urine Negative (Negative); Blood,Urine Small (Negative); Budding Yeast,Urine Many /hpf; Color,Urine Light Yellow; Glucose,Urine (UA) Negative (Negative); Ketones,Urine Negative (Negative); Leukocyte Esterase,Urine Large (Negative); Mucus,Urine Rare /hpf; Nitrite,Urine Positive (Negative); PH, Urine 6.5 (5.0-8.0); Protein,Urine 1+ (Negative); RBC,Urine 4 /hpf (0-5); Specific Gravity,Urine 1.009 (1.001-1.035); Squamous Epithelial Cell,Urine 10 /hpf (0-4); Urobilinogen,Urine <2.0 mg/dL (<2.0); WBC,Urine 112 /hpf (0-5)
[2018-07-27] MEDS ORDERED: LEVOFLOXACIN 500 MG TAB PO STA (22:10)
[2018-07-27 22:45] VITALS: BP 124/73; PULSE 72; RESP 18; TEMP 98.9
== END 2018-07-27 22:45 | disposition home or self-care (01) ==
LOC: EC 21:09
DX: N39.0 Urinary tract infection, site not specified (principal); F31.9 Bipolar disorder, unspecified; F41.9 Anxiety disorder, unspecified; F17.200 Nicotine dependence, unspecified, uncomplicated; Z79.899 Other long term (current) drug therapy; Z91.030 Bee allergy status; Z98.51 Tubal ligation status
CPT/HCPCS: 81001; 81025; 99284

== ENCOUNTER 2019-02-01 17:09 | Emergency (ER) | payer BC, OTHER ==
--- NOTE | 2019-02-01 17:43 | ED ---
Upper Extremity HPI - General Chief Complaint: Extremity Injury, Upper Stated Complaint: Fall, hand/wrist pain Time Seen by Provider: 02/01/19 17:29 Source: patient, RN notes reviewed Mode of arrival: ambulatory Limitations: no limitations - History of Present Illness Initial Comments: 38 show female presents emergency Department chief complaint of left wrist pain. Patient states she has slipped and fallen the shower last night and fell catching herself on the toe. Patient is right-hand dominant. Denies any head injury no loss conscious. Patient reports pain along the radial aspect in her thumb. - Related Data Home Medications Medication Instructions Recorded Confirmed Citalopram Hydrobromide [CeleXA] 20 mg PO DAILY 06/04/17 10/12/17 Acetaminophen Tab [Tylenol Tab] 650 mg PO Q6H PRN 07/27/18 07/27/18 Calcium Carbonate [Tums] 500 mg PO TID PRN 07/27/18 07/27/18 Previous Rx's Medication Instructions Recorded Ciprofloxacin HCl [Cipro] 500 mg PO Q12HR #14 tablet 07/27/18 Allergies Allergy/AdvReac Type Severity Reaction Status Date / Time venom-honey bee Allergy Anaphylaxis Verified 02/01/19 17:16 [bee venom (honey bee)] Review of Systems ROS Statement: Those systems with pertinent positive or pertinent negative responses have been documented in the HPI. ROS Other: All systems not noted in ROS Statement are negative. Past Medical History Past Medical History: GERD/Reflux Additional Past Medical History / Comment(s): hiatal hernia, gastritis History of Any Multi-Drug Resistant Organisms: None Reported Past Surgical History: Appendectomy, Cholecystectomy, Hernia Repair, Tubal Ligation Additional Past Surgical History / Comment(s): d&c Past Anesthesia/Blood Transfusion Reactions: No Reported Reaction Past Psychological History: Anxiety, Bipolar, Depression Smoking Status: Current every day smoker Past Alcohol Use History: Occasional Past Drug Use History: None Reported - Past Family History Mother Family Medical History: Cancer General Exam Limitations: no limitations General appearance: alert, in no apparent distress Head exam: Present: atraumatic, normocephalic, normal inspection Eye exam: Present: normal appearance, PERRL, EOMI. Absent: scleral icterus, conjunctival injection, periorbital swelling Respiratory exam: Present: normal lung sounds bilaterally. Absent: respiratory distress, wheezes, rales, rhonchi, stridor Cardiovascular Exam: Present: regular rate, normal rhythm, normal heart sounds. Absent: systolic murmur, diastolic murmur, rubs, gallop, clicks Extremities exam: Present: other (Left wrist there is tenderness at the radial aspect, no obvious deformity there is snuffbox tenderness, no hand tenderness noted neurovascular intact) Neurological exam: Present: alert, oriented X3, CN II-XII intact Course Vital Signs 02/01/19 17:14 Temperature 97.9 F Pulse Rate 86 Respiratory 18 Rate Blood Pressure 124/66 O2 Sat by Pulse 99 Oximetry Procedures - Orthopedic Splinting/Casting Injury #1 Side: left Upper Extremity Injury Location: short arm, wrist Upper Extremity Immobilizer: thumb spica, synthetic pre-padded splint Medical Decision Making - Medical Decision Making 38-year-old female presented presented for left wrist, hand injury. Patient has scaphoid tenderness. There is no obvious fracture but patient was splinted for concerns of underlying scaphoid fracture. Patient follow-up with orthopedics return parameters were discussed. Disposition Clinical Impression: Wrist injury Disposition: HOME SELF-CARE Condition: Stable Instructions (If sedation given, give patient instructions): Suspected Fracture (ED) Additional Instructions: Please return to the Emergency Department if symptoms worsen or any other concerns. Is patient prescribed a controlled substance at d/c from ED?: No Referrals: Haim Ash MD [Primary Care Provider] - 1-2 days Marc Palacios DO [Doctor of Osteopathic Medicine] - 1-2 days Time of Disposition: 18:45
--- NOTE | 2019-02-01 18:05 | XR ---
EXAMINATION TYPE: XR wrist complete LT DATE OF EXAM: 02/01/2019 COMPARISON: NONE HISTORY: Wrist pain TECHNIQUE: 4 views FINDINGS: I see no fracture nor dislocation. Joint spaces are normal. There are no erosions. IMPRESSION: Negative left wrist exam.
[2019-02-01 18:54] VITALS: BP 120/79; PULSE 80; RESP 16; TEMP 98.4
== END 2019-02-01 18:54 | disposition home or self-care (01) ==
LOC: EC 17:09
DX: S69.92XA Unspecified injury of left wrist, hand and finger(s), initial encounter (principal); F32.9 Major depressive disorder, single episode, unspecified; F17.200 Nicotine dependence, unspecified, uncomplicated; Z91.030 Bee allergy status; Z79.899 Other long term (current) drug therapy; W18.2XXA Fall in (into) shower or empty bathtub, initial encounter; Y92.009 Unspecified place in unspecified non-institutional (private) residence as the place of occurrence of the external cause
CPT/HCPCS: 29125; 99283

== ENCOUNTER → 2019-04-03 | Outpatient (CLI) | payer OTHER ==
--- NOTE | 2019-04-03 15:12 | CT ---
EXAMINATION TYPE: CT wrist LT wo con DATE OF EXAM: 04/03/2019 COMPARISON: Left wrist x-ray February 01, 2019 HISTORY: fracture LT wrist scaphoid middle one third. Left wrist pain CT DLP: 114 mGycm Automated exposure control for dose reduction was used. FINDINGS: Scaphoid shows no suspicious linear lucency to suggest acute fracture. MRI is noted more sensitive an d can be performed to better evaluate if desired. No displaced fracture fragments are seen. Proximal distal carpal rows are maintained. Slight bony irregularity along lateral margin of the scaphoid romi elates with plain films without linear lucency to suggest acute fracture. Mild subcutaneous edema along palmar surface is present. Muscle bulk is preserved. IMPRESSION: NO ACUTE SCAPHOID FRACTURE IDENTIFIED. CONSIDER MRI IF SUSPICION PERSISTS.
== END | disposition home or self-care (01) ==
LOC: RADCTMAIN 13:47
PROVIDERS: ATTEND Orthopaedic Surgery
DX: M25.532 Pain in left wrist (principal); S62.025D Nondisplaced fracture of middle third of navicular [scaphoid] bone of left wrist, subsequent encounter for fracture with routine healing; F17.210 Nicotine dependence, cigarettes, uncomplicated

== ENCOUNTER 2019-08-29 22:17 | Emergency (ER) | payer OTHER ==
[2019-08-29 22:39] LABS: Appearance,Urine Clear (Clear); Bacteria,Urine Rare /hpf; Bilirubin,Urine Negative (Negative); Blood,Urine Small (Negative); Color,Urine Yellow; Glucose,Urine (UA) Negative (Negative); Ketones,Urine Negative (Negative); Leukocyte Esterase,Urine Negative (Negative); Mucus,Urine Rare /hpf; Nitrite,Urine Negative (Negative); PH, Urine 5.5 (5.0-8.0); Protein,Urine Negative (Negative); RBC,Urine 4 /hpf (0-5); Specific Gravity,Urine 1.011 (1.001-1.035); Squamous Epithelial Cell,Urine 1 /hpf (0-4); Urobilinogen,Urine <2.0 mg/dL (<2.0)
[2019-08-29] MEDS ORDERED: ACET/COD 300 MG/30 MG STARTER PACK 6 TAB BTL PO STA (23:53)
[2019-08-29] MEDS ORDERED: KETOROLAC 30 MG/ML 1 ML VIAL IM STA (23:53)
[2019-08-29] MEDS ORDERED: CYCLOBENZAPRINE 10MG STARTER 3 TAB BTL PO STA (23:53)
--- NOTE | 2019-08-29 23:54 | ED ---
General Adult HPI - General Chief complaint: Urogenital Stated complaint: bladder/kidney problem Time Seen by Provider: 08/29/19 23:06 Source: patient Mode of arrival: ambulatory Limitations: no limitations - History of Present Illness Initial comments: 39-year-old female patient presents to the emergency department today for evaluation of low back pain. Patient states the pain is been present since earlier in the afternoon. States it hurts worse when she stands or moves. She denies any radiation of the pain down her legs. Denies any loss of bowel or bladder control. Denies saddle anesthesia or numbness or tingling to the lower extremities. She denies any known injury to the back. Patient states she has had pain similar to this with urinary tract infections and is concerned she may have one. Denies abdominal pain. She denies any hematuria, dysuria, urinary frequency, urinary urgency. Denies any fever or chills. Denies nausea or vomi ting. Patient denies any recent rash, shortness breath, chest pain, diarrhea, constipation, back pain, numbness, tingling, dizziness, weakness, headache, visual changes, or any other complaints. - Related Data Home Medications Medication Instructions Recorded Confirmed Citalopram Hydrobromide [CeleXA] 20 mg PO DAILY 06/04/17 10/12/17 Acetaminophen Tab [Tylenol Tab] 650 mg PO Q6H PRN 07/27/18 07/27/18 Calcium Carbonate [Tums] 500 mg PO TID PRN 07/27/18 07/27/18 Previous Rx's Medication Instructions Recorded Ciprofloxacin HCl [Cipro] 500 mg PO Q12HR #14 tablet 07/27/18 Cyclobenzaprine [Flexeril] 10 mg PO TID #15 tab 08/29/19 Naproxen [EC-Naprosyn] 500 mg PO BID PRN #30 tablet. 08/29/19 Allergies Allergy/AdvReac Type Severity Reaction Status Date / Time venom-honey bee Allergy Anaphylaxis Verified 08/29/19 22:23 [bee venom (honey bee)] Review of Systems ROS Statement: Those systems with pertinent positive or pertinent negative responses have been documented in the HPI. ROS Other: All systems not noted in ROS Statement are negative. Past Medical History Past Medical History: GERD/Reflux Additional Past Medical History / Comment(s): hiatal hernia, gastritis History of Any Multi-Drug Resistant Organisms: None Reported Past Surgical History: Appendectomy, Cholecystectomy, Hernia Repair, Tubal Ligation Additional Past Surgical History / Comment(s): d&c Past Anesthesia/Blood Transfusion Reactions: No Reported Reaction Past Psychological History: Anxiety, Bipolar, Depression Smoking Status: Current every day smoker Past Alcohol Use History: Occasional Past Drug Use History: None Reported - Past Family History Mother Family Medical History: Cancer General Exam Limitations: no limitations General appearance: alert, in no apparent distress, other (Physical well- developed, well-nourished adult female patient in no acute distress. Vital signs upon presentation are temperature 98.3F, pulse 98, respirations 16, blood pressure 118/75, pulse ox 100% on room air.) Respiratory exam: Present: normal lung sounds bilaterally. Absent: respiratory distress, wheezes, rales, rhonchi, stridor Cardiovascular Exam: Present: regular rate, normal rhythm, normal heart sounds. Absent: systolic murmur, diastolic murmur, rubs, gallop, clicks GI/Abdominal exam: Present: soft, normal bowel sounds. Absent: distended, tenderness, guarding, rebound, rigid Extremities exam: Present: normal inspection, full ROM, normal capillary refill, other (Skin to the lower extremities is pink, warm, dry. Cap refills less than 3 seconds. Pedal pulses 2+ and equal bilaterally.). Absent: tenderness, pedal edema, joint swelling, calf tenderness Back exam: Present: normal inspection. Absent: CVA tenderness (R), CVA tenderness (L), vertebral tenderness Neurological exam: Present: alert, oriented X3, CN II-XII intact Psychiatric exam: Present: normal affect, normal mood Skin exam: Present: warm, dry, intact, normal color. Absent: rash Course Vital Signs 08/29/19 08/30/19 22:22 00:12 Temperature 98.3 F 98.2 F Pulse Rate 98 95 Respiratory 16 18 Rate Blood Pressure 118/75 128/72 O2 Sat by Pulse 100 100 Oximetry Medical Decision Making - Medical Decision Making 39-year-old female patient presents to the emergency department today for evaluation of lower back pain. Patient is concerned she may have a urinary tract infection. Urinalysis shows no evidence for infection. She is not . Patient symptoms seem consistent with musculoskeletal back pain. I did offer to perform further lab testing and x-ray of the abdomen given patient's symptoms. She did decline these tests and requested treatment for musculoskeletal back pain. We'll treat with anti-inflammatory muscle relaxer. She is instructed to perform gentle range of motion exercises. She is instructed to follow-up with her primary care physician for recheck in 1-2 days. Return parameters were discussed in detail. She verbalizes understanding and agrees with this plan. - Lab Data Lab Results 08/29/19 08/29/19 Range/Units 22:31 22:31 Urine Color Yellow Urine Appearance Clear (Clear) Urine pH 5.5 (5.0-8.0) Ur Specific [place] 1.011 (1.001-1.035) Urine Protein Negative (Negative) Urine Glucose (UA) Negative (Negative) Urine Ketones Negative (Negative) Urine Blood Small H (Negative) Urine Nitrite Negative (Negative) Urine Bilirubin Negative (Negative) Urine Urobilinogen <2.0 (<2.0) mg/dL Ur Leukocyte Esterase Negative (Negative) Urine RBC 4 (0-5) /hpf Urine WBC <1 (0-5) /hpf Ur Squamous Epith Cells 1 (0-4) /hpf Urine Bacteria Rare H (None) /hpf Urine Mucus Rare H (None) /hpf Urine HCG, Qual Not Detected (Not Detectd) Disposition Clinical Impression: Acute low back pain Disposition: HOME SELF-CARE Condition: Good Instructions (If sedation given, give patient instructions): Acute Low Back Pain (ED) Additional Instructions: Increase fluids. Rest pain take medications as directed. Perform gentle range of motion exercises. Follow-up with your primary care physician for recheck in 1-2 days. Return to the emergency department immediately for any new, worsening, or concerning symptoms. Prescriptions were sent [facility] pharmacy in [facility]. Prescriptions: Naproxen [EC-Naprosyn] 500 mg PO BID PRN #30 tablet.dr NAYLOR Reason: Pain Cyclobenzaprine [Flexeril] 10 mg PO TID #15 tab Is patient prescribed a controlled substance at d/c from ED?: No Referrals: Haim Ash MD [Primary Care Provider] - 1-2 days Time of Disposition: 23:54
[2019-08-30 00:14] VITALS: BP 128/72; PULSE 95; RESP 18; TEMP 98.2
== END 2019-08-30 00:13 | disposition home or self-care (01) ==
LOC: EC 22:17
DX: M54.5 Low back pain (principal); Z32.02 Encounter for pregnancy test, result negative; F41.9 Anxiety disorder, unspecified; F31.9 Bipolar disorder, unspecified; F17.200 Nicotine dependence, unspecified, uncomplicated; Z79.899 Other long term (current) drug therapy; Z91.030 Bee allergy status
CPT/HCPCS: 81001; 81025; 99283; 96372; J1885

== ENCOUNTER 2019-11-04 13:42 | Emergency (ER) | payer OTHER ==
[2019-11-04 13:50] VITALS: BP 128/80; PULSE 98; RESP 18; TEMP 97.8
--- NOTE | 2019-11-04 14:30 | ED ---
Female Urogenital HPI - General Chief complaint: Urogenital Stated complaint: poss UTI Time Seen by Provider: 11/04/19 13:51 Source: patient Mode of arrival: ambulatory Limitations: no limitations - History of Present Illness Initial comments: Patient is a 39-year-old female presenting with a possible UTI. Patient states she has asymptomatic bacteremia often and usually does not start developing symptoms until her UTI severe. Patient has been hospitalized for kidney infection in the past. Patient is presenting with suprapubic pain as well as mild low back pain. Patient denies fever, chills, nausea, vomiting. Patient denies dysuria. Patient has no other complaints at this time. upon arrival to the ER, vital signs are stable. - Related Data Home Medications Medication Instructions Recorded Confirmed Citalopram Hydrobromide [CeleXA] 20 mg PO DAILY 06/04/17 10/12/17 Acetaminophen Tab [Tylenol Tab] 650 mg PO Q6H PRN 07/27/18 07/27/18 Calcium Carbonate [Tums] 500 mg PO TID PRN 07/27/18 07/27/18 Previous Rx's Medication Instructions Recorded Ciprofloxacin HCl [Cipro] 500 mg PO Q12HR #14 tablet 07/27/18 Cyclobenzaprine [Flexeril] 10 mg PO TID #15 tab 08/29/19 Naproxen [EC-Naprosyn] 500 mg PO BID PRN #30 tablet. 08/29/19 Cephalexin [Keflex] 500 mg PO BID 7 Days #14 cap 11/04/19 Allergies Allergy/AdvReac Type Severity Reaction Status Date / Time venom-honey bee Allergy Anaphylaxis Verified 11/04/19 13:48 [bee venom (honey bee)] Review of Systems ROS Statement: Those systems with pertinent positive or pertinent negative responses have been documented in the HPI. ROS Other: All systems not noted in ROS Statement are negative. Past Medical History Past Medical History: GERD/Reflux Additional Past Medical History / Comment(s): hiatal hernia, gastritis History of Any Multi-Drug Resistant Organisms: None Reported Past Surgical History: Appendectomy, Cholecystectomy, Hernia Repair, Tubal Ligation Additional Past Surgical History / Comment(s): d&c Past Anesthesia/Blood Transfusion Reactions: No Reported Reaction Past Psychological History: Anxiety, Bipolar, Depression Smoking Status: Current every day smoker Past Alcohol Use History: Occasional Past Drug Use History: None Reported - Past Family History Mother Family Medical History: Cancer General Exam - General Exam Comments Initial Comments: GENERAL: Well-appearing, well-nourished and in no acute distress. HEAD: Atraumatic, normocephalic. EYES: Pupils equal round and reactive to light, extraocular movements intact, sclera anicteric, conjunctiva are normal. ENT: Nares patent, oropharynx clear without exudates. Moist mucous membranes. NECK: Normal range of motion, supple without lymphadenopathy or JVD. LUNGS: Breath sounds clear to auscultation bilaterally and equal. No wheezes rales or rhonchi. HEART: Regular rate and rhythm without murmurs, rubs or gallops. ABDOMEN: suprapubic tenderness.Soft, normoactive bowel sounds. No guarding, no rebound. No masses appreciated. : Deferred EXTREMITIES: Normal range of motion, no pitting or edema. No clubbing or cyanosis. SKIN: Warm, Dry, normal turgor, no rashes or lesions noted. Limitations: no limitations Course Vital Signs 11/04/19 13:48 Temperature 97.8 F Pulse Rate 98 Respiratory 18 Rate Blood Pressure 128/80 O2 Sat by Pulse 99 Oximetry Medical Decision Making - Medical Decision Making patient is a 39-year-old female presenting with UTI-type symptoms. vitals are stable. Patient's urine is positive for nitrates. Urine will be culturedand is pending at this time. Patient will be started on Keflex for UTI. Patient is agreement with this plan of care. She is stable for discharge this time. Return parameters were discussed with the patient and she verbalized understanding. Case discussed with Dr. Alva. - Lab Data Lab Results 11/04/19 11/04/19 Range/Units 14:25 14:25 Urine Color Light Yellow Urine Appearance Cloudy H (Clear) Urine pH 6.0 (5.0-8.0) Ur Specific [place] 1.006 (1.001-1.035) Urine Protein Negative (Negative) Urine Glucose (UA) Negative (Negative) Urine Ketones Negative (Negative) Urine Blood Negative (Negative) Urine Nitrite Positive H (Negative) Urine Bilirubin Negative (Negative) Urine Urobilinogen <2.0 (<2.0) mg/dL Ur Leukocyte Esterase Negative (Negative) Urine RBC 1 (0-5) /hpf Urine WBC 4 (0-5) /hpf Ur Squamous Epith Cells 11 H (0-4) /hpf Amorphous Sediment Rare H (None) /hpf Urine Bacteria Many H (None) /hpf Urine Mucus Rare H (None) /hpf Urine HCG, Qual Not Detected (Not Detectd) Disposition Clinical Impression: Urinary tract infection Disposition: HOME SELF-CARE Condition: Stable Instructions (If sedation given, give patient instructions): Urinary Tract Infection in Women (ED) Additional Instructions: Please return to the Emergency Department if symptoms worsen or any other concerns. Take antibiotic as prescribed. Follow-up with PCP if symptoms persist Prescriptions: Cephalexin [Keflex] 500 mg PO BID 7 Days #14 cap Is patient prescribed a controlled substance at d/c from ED?: No Referrals: Haim Ash MD [Primary Care Provider] - 1-2 days
[2019-11-04 14:37] LABS: Amorphous Sediment,Urine Rare /hpf; Appearance,Urine Cloudy (Clear); Bacteria,Urine Many /hpf; Bilirubin,Urine Negative (Negative); Blood,Urine Negative (Negative); Color,Urine Light Yellow; Glucose,Urine (UA) Negative (Negative); Ketones,Urine Negative (Negative); Leukocyte Esterase,Urine Negative (Negative); Mucus,Urine Rare /hpf; Nitrite,Urine Positive (Negative); Protein,Urine Negative (Negative); RBC,Urine 1 /hpf (0-5); Specific Gravity,Urine 1.006 (1.001-1.035); Squamous Epithelial Cell,Urine 11 /hpf (0-4); Urobilinogen,Urine <2.0 mg/dL (<2.0); WBC,Urine 4 /hpf (0-5)
== END 2019-11-04 14:49 | disposition home or self-care (01) ==
LOC: EC 13:42
DX: N39.0 Urinary tract infection, site not specified (principal); F41.9 Anxiety disorder, unspecified; F31.9 Bipolar disorder, unspecified; F17.200 Nicotine dependence, unspecified, uncomplicated; Z91.030 Bee allergy status; Z79.899 Other long term (current) drug therapy; Z90.49 Acquired absence of other specified parts of digestive tract
CPT/HCPCS: 81001; 81025; 99284

== ENCOUNTER 2019-12-09 19:01 | Emergency (ER) | payer OTHER ==
[2019-12-09 19:24] VITALS: BP 120/63; PULSE 96; RESP 20; TEMP 98.6
[2019-12-09] MEDS ORDERED: KETOROLAC 60 MG/2 ML VIAL IM STA (19:37)
--- NOTE | 2019-12-09 19:39 | ED ---
Fall HPI - General Chief Complaint: Fall Stated Complaint: Hip back pain/fall Time Seen by Provider: 12/09/19 19:31 Source: patient, RN notes reviewed, old records reviewed Mode of arrival: ambulatory - History of Present Illness Initial Comments: Patient is a 39-year-old female, who presents emergency department today with chief complaint of slip and fall on the ice on Monday. Patient has had symptoms of left hip pain, and right arm and hand pain from the fall. Patient reports that she has been able to ambulate but it has been quite difficult to left leg pain. Patient states that she has been taking Motrin for pain. She also complains of some lumbar spine pain from the fall. Patient states that she's had no fevers or chills, denies any change in urination. - Related Data Home Medications Medication Instructions Recorded Confirmed Citalopram Hydrobromide [CeleXA] 20 mg PO DAILY 06/04/17 10/12/17 Acetaminophen Tab [Tylenol Tab] 650 mg PO Q6H PRN 07/27/18 07/27/18 Calcium Carbonate [Tums] 500 mg PO TID PRN 07/27/18 07/27/18 Previous Rx's Medication Instructions Recorded Ciprofloxacin HCl [Cipro] 500 mg PO Q12HR #14 tablet 07/27/18 Cyclobenzaprine [Flexeril] 10 mg PO TID #15 tab 08/29/19 Naproxen [EC-Naprosyn] 500 mg PO BID PRN #30 tablet. 08/29/19 Cephalexin [Keflex] 500 mg PO BID 7 Days #14 cap 11/04/19 Ibuprofen [Motrin] 600 mg PO Q8HR PRN #30 tab 12/09/19 Allergies Allergy/AdvReac Type Severity Reaction Status Date / Time venom-honey bee Allergy Anaphylaxis Verified 12/09/19 19:24 [bee venom (honey bee)] Review of Systems ROS Statement: Those systems with pertinent positive or pertinent negative responses have been documented in the HPI. ROS Other: All systems not noted in ROS Statement are negative. Past Medical History Past Medical History: GERD/Reflux Additional Past Medical History / Comment(s): hiatal hernia, gastritis History of Any Multi-Drug Resistant Organisms: None Reported Past Surgical History: Appendectomy, Cholecystectomy, Hernia Repair, Tubal Ligation Additional Past Surgical History / Comment(s): d&c Past Anesthesia/Blood Transfusion Reactions: No Reported Reaction Past Psychological History: Anxiety, Bipolar, Depression Smoking Status: Current every day smoker Past Alcohol Use History: Occasional Past Drug Use History: None Reported - Past Family History Mother Family Medical History: Cancer General Exam - General Exam Comments Initial Comments: 39 yearold female, no distress. Limitations: no limitations General appearance: alert, in no apparent distress Head exam: Present: atraumatic Eye exam: Present: normal appearance, PERRL, EOMI. Absent: scleral icterus, conjunctival injection, periorbital swelling ENT exam: Present: normal exam, mucous membranes moist Neck exam: Present: normal inspection. Absent: tenderness, meningismus, lymphadenopathy Respiratory exam: Present: normal lung sounds bilaterally. Absent: respiratory distress, wheezes, rales, rhonchi, stridor Cardiovascular Exam: Present: regular rate, normal rhythm, normal heart sounds. Absent: systolic murmur, diastolic murmur, rubs, gallop, clicks GI/Abdominal exam: Present: soft, normal bowel sounds. Absent: distended, tenderness, guarding, rebound, rigid Extremities exam: Present: normal inspection, full ROM, normal capillary refill. Absent: tenderness, pedal edema, joint swelling, calf tenderness Right Upper Arm exam: Present: normal inspection, full ROM Elbow exam: Present: normal inspection, full ROM Forearm Wrist exam: Present: normal inspection, full ROM Hand Wrist exam: Present: normal inspection, full ROM, tenderness (over 5th metacarpal, bruisingnoted. ) Neuro motor exam: Present: wrist extension intact, thumb opposition intact, thumb IP flexion intact, thumb adduction intact, fingers 2-5 abduction intact Vascular: Present: normal capillary refill Left Hip exam: Present: normal inspection, full ROM, tenderness (over greater trochanter) Upper Leg exam: Present: normal inspection, full ROM Knee exam: Present: normal inspection, full ROM Lower Leg exam: Present: normal inspection, full ROM Ankle exam: Present: normal inspection, full ROM Back exam: Present: normal inspection Neurological exam: Present: alert, oriented X3, CN II-XII intact Psychiatric exam: Present: normal affect, normal mood Skin exam: Present: warm, dry, intact, normal color. Absent: rash Course Vital Signs 12/09/19 12/09/19 19:18 21:28 Temperature 98.6 F 98.6 F Pulse Rate 96 96 Respiratory 20 20 Rate Blood Pressure 120/63 120/63 O2 Sat by Pulse 100 100 Oximetry Medical Decision Making - Medical Decision Making 39 year female, presents after slip and fall on ice, with multipe extremity martin ns. She complains of pain in R hand and L hip, and R elbow. Xrays are reviewed no fracure. She does have swelling over 5th metacarpal. Given JESSICA wrap and advised follow up with PCP and ortho. Given a note for work. Return parameters discussed. - Radiology Data Radiology results: report reviewed Negative right elbow exam. Negative L hip exam. Negative right forearm exam. Mild levoscoliosis unchanged. No fracture seen on Lumbar spine. Cystic changes in lunate could relate to cysts. No significant join space narrowing. No fracture seen. Disposition Clinical Impression: Fall, Wrist sprain, Hip sprain Disposition: HOME SELF-CARE Condition: Good Instructions (If sedation given, give patient instructions): Wrist Injury (ED), Hip Sprain (ED) Additional Instructions: Please use medication as discussed. Please follow up with family doctor if symptoms have not improved over the next two days. Please return to the emergency room if your symptoms increase or worsen or for any other concerns. Prescriptions: Ibuprofen [Motrin] 600 mg PO Q8HR PRN #30 tab PRN Reason: Pain Is patient prescribed a controlled substance at d/c from ED?: No Referrals: Haim Ash MD [Primary Care Provider] - 1-2 days Fan Montenegro MD [Medical Doctor] - 1-2 days Time of Disposition: 21:07
--- NOTE | 2019-12-09 20:16 | XR ---
EXAMINATION TYPE: XR lumbar spine 2 or 3V DATE OF EXAM: 12/09/2019 COMPARISON: 11/10/2012 HISTORY: Fall on the ice. Back pain. TECHNIQUE: 3 views FINDINGS: There is thoracolumbar levoscoliosis. Sacroiliac joints appear normal. Posterior elements a re intact. Disc spaces are fairly normal. I see no compression fracture. IMPRESSION: Mild levoscoliosis unchanged. No fracture seen.
--- NOTE | 2019-12-09 20:17 | XR ---
EXAMINATION TYPE: XR forearm RT DATE OF EXAM: 12/09/2019 COMPARISON: NONE HISTORY: Fall. Pain. TECHNIQUE: 2 views FINDINGS: Radius and ulna appear intact. I see no fracture nor dislocation. Elbow joint and wrist cathy nt appear intact. IMPRESSION: Negative right forearm exam.
--- NOTE | 2019-12-09 20:24 | XR ---
EXAMINATION TYPE: XR Hip LT and AP Pelvis DATE OF EXAM: 12/09/2019 COMPARISON: NONE HISTORY: Pain TECHNIQUE: 3 views FINDINGS: Pelvic ring is intact. Proximal left femur and hip joint appear intact. Sacroiliac joints a ppear intact. Joint spaces are normal. I see no bony destructive process. There are small bone island s in the proximal left femur. IMPRESSION: Negative pelvis and left hip exam.
--- NOTE | 2019-12-09 20:25 | XR ---
EXAMINATION TYPE: XR elbow complete RT DATE OF EXAM: 12/09/2019 COMPARISON: NONE HISTORY: Pain TECHNIQUE: 3 views FINDINGS: Elbow joint spaces are normal. I see no fracture nor dislocation. There is no sign of elbow joint effusion. Soft tissues appear normal. IMPRESSION: Normal right elbow exam.
--- NOTE | 2019-12-09 20:26 | XR ---
EXAMINATION TYPE: XR hand complete RT DATE OF EXAM: 12/09/2019 COMPARISON: NONE HISTORY: Pain TECHNIQUE: 3 views FINDINGS: Metacarpals are intact. I see no fracture nor dislocation. Joint spaces are normal. There i s no subluxation. Distal radius and ulna appear intact. There is some mild cystic change in the lunat e. IMPRESSION: Cystic changes in the lunate could relate to cysts. No significant joint space narrowing. No fracture seen.
== END 2019-12-09 21:29 | disposition home or self-care (01) ==
LOC: EC 19:01
DX: S63.501A Unspecified sprain of right wrist, initial encounter (principal); S73.102A Unspecified sprain of left hip, initial encounter; S60.221A Contusion of right hand, initial encounter; M54.9 Dorsalgia, unspecified; M25.521 Pain in right elbow; F41.9 Anxiety disorder, unspecified; F32.9 Major depressive disorder, single episode, unspecified; F17.200 Nicotine dependence, unspecified, uncomplicated; Z79.899 Other long term (current) drug therapy; Z91.030 Bee allergy status; W00.0XXA Fall on same level due to ice and snow, initial encounter
CPT/HCPCS: 72100; 73502; 73080; 73090; 73130; 99284; 96372; J1885

== ENCOUNTER → 2020-01-31 | Outpatient (CLI) | payer OTHER ==
--- NOTE | 2020-01-31 15:21 | US ---
EXAMINATION TYPE: US transvaginal DATE OF EXAM: 01/31/2020 COMPARISON: NONE CLINICAL HISTORY: N93.0 Postcoital and contact bleeding. Pain bleeding after intercourse. TECHNIQUE: Transvaginal (TV Date of LMP: Today EXAM MEASUREMENTS: Uterus: 8.0 x 4.4 x 5.8 cm Endometrial Stripe: .4 cm Right Ovary: 2.7 x 1.6 x 2.3 cm Left Ovary: 2.5 x 1.3 x 2.2 cm 1. Uterus: Anteverted Nabothian cyst seen in the cervix. Visualization of the distal cervix. 2. Endometrium: wnl 3. Right Ovary: wnl 4. Left Ovary: Cystic area 1.8 x 1.3 x 1.8 cm. 5. Bilateral Adnexa: wnl 6. Posterior cul-de-sac: wnl IMPRESSION: No abnormal endometrial thickening. Left ovarian cyst appears simple measuring 1.8 cm. Sm all nabothian cyst is seen within the cervix. Distal cervix is not visualized.
== END | disposition home or self-care (01) ==
LOC: RADUSWWP 14:24
PROVIDERS: ATTEND Pediatrics
DX: N88.8 Other specified noninflammatory disorders of cervix uteri (principal); N83.202 Unspecified ovarian cyst, left side
CPT/HCPCS: 76830

== ENCOUNTER 2020-05-03 22:26 | Emergency (ER) | payer OTHER ==
[2020-05-03 23:11] LABS: Basophils # (A) 0.1 k/uL (0-0.2); Basophils % (A) 1 %; Eosinophils # (A) 0.4 k/uL (0-0.7); Eosinophils % (A) 3 %; HCT 44.3 % (34.0-46.0); HGB 14.4 gm/dL (11.4-16.0); Lymphocytes % (A) 24 %; MCH 30.4 pg (25.0-35.0); MCHC 32.5 g/dL (31.0-37.0); MCV 93.6 fL (80.0-100.0); Mean Platelet Volume 8.1; Monocytes # (A) 0.4 k/uL (0-1.0); Monocytes % (A) 3 %; Neutrophils # (A) 8.5 k/uL (1.3-7.7); Neutrophils % (A) 68 %; Platelet Count 288 k/uL (150-450); RBC 4.73 m/uL (3.80-5.40); RDW 12.5 % (11.5-15.5); WBC 12.5 k/uL (3.8-10.6)
[2020-05-03 23:16] LABS: Appearance,Urine Cloudy (Clear); Bacteria,Urine Rare /hpf; Bilirubin,Urine Negative (Negative); Blood,Urine Trace (Negative); Color,Urine Yellow; Glucose,Urine (UA) Negative (Negative); Ketones,Urine Negative (Negative); Leukocyte Esterase,Urine Trace (Negative); Mucus,Urine Rare /hpf; Nitrite,Urine Positive (Negative); Protein,Urine Negative (Negative); RBC,Urine 2 /hpf (0-5); Specific Gravity,Urine 1.014 (1.001-1.035); Squamous Epithelial Cell,Urine 11 /hpf (0-4); Urobilinogen,Urine <2.0 mg/dL (<2.0); WBC,Urine 7 /hpf (0-5)
[2020-05-03 23:25] LABS: ALT 14 U/L (4-34); AST 20 U/L (14-36); African American GFR (CKD) >90 (>60 ml/min/1.73 sqM); Albumin 4.3 g/dL (3.5-5.0); Alkaline Phosphatase 80 U/L (38-126); Anion Gap 8 mmol/L; Blood Urea Nitrogen 8 mg/dL (7-17); Calcium 9.5 mg/dL (8.4-10.2); Carbon Dioxide 25 mmol/L (22-30); Chloride 105 mmol/L (98-107); Glucose 93 mg/dL (74-99); Non-African American GFR(CKD) >90 (>60 ml/min/1.73 sqM); Potassium 3.5 mmol/L (3.5-5.1); Sodium 138 mmol/L (137-145); Total Bilirubin 0.4 mg/dL (0.2-1.3); Total Protein 7.7 g/dL (6.3-8.2)
[2020-05-03] MEDS ORDERED: SODIUM CHLORIDE 0.9% 1,000 ML IV ONE (23:30)
[2020-05-03 23:55] VITALS: BP 129/72; PULSE 95; RESP 19; TEMP 97.5
[2020-05-03] MEDS ORDERED: CEPHALEXIN 500MG STARTER PACK 4 CAP BTL PO STA (23:59)
--- NOTE | 2020-05-04 00:01 | ED ---
General Adult HPI - General Chief complaint: Urogenital Stated complaint: Kidney Pain Time Seen by Provider: 05/03/20 22:36 Source: patient, RN notes reviewed, old records reviewed Mode of arrival: ambulatory Limitations: no limitations - History of Present Illness Initial comments: 39-year-old female patient past history significant for appendectomy jez cystectomy tubal ligation presents to ED for evaluation of left flank pain. Patient reports she feels that she started getting a kidney infection. Patient reports that she has history of these. States that she rarely ever gets urinary symptoms. Denies any anterior abdominal pain. Reports she had temperature of 99F at home. Denies any diarrhea or emesis. Denies any other complaints. Systemic: Pt denies fatigue, fever/chills, rash. Pt denies weakness, night sweats, weight loss. Neuro: Pt denies headache, visual disturbances, syncope or pre-syncope. HEENT: Pt denies ocular discharge or irritation, otalgia, rhinorrhea, pharyngitis or notable lymphadenopathy. Cardiopulmonary: Pt denies chest pain, SOB, heart palpitations, dyspnea on exertion. Abdominal/GI: Pt denies abdominal pain, n/v/d. : Pt denies dysuria, burning w/ urination, frequency/urgency. Denies new onset urinary or bowel incontinence. MSK: Pt denies myalgia, loss of strength or function in extremities. Neuro: Pt denies new onset weakness, paresthesias. - Related Data Home Medications Medication Instructions Recorded Confirmed Citalopram Hydrobromide [CeleXA] 20 mg PO DAILY 06/04/17 10/12/17 Acetaminophen Tab [Tylenol Tab] 650 mg PO Q6H PRN 07/27/18 07/27/18 Calcium Carbonate [Tums] 500 mg PO TID PRN 07/27/18 07/27/18 Previous Rx's Medication Instructions Recorded Ciprofloxacin HCl [Cipro] 500 mg PO Q12HR #14 tablet 07/27/18 Cyclobenzaprine [Flexeril] 10 mg PO TID #15 tab 08/29/19 Naproxen [EC-Naprosyn] 500 mg PO BID PRN #30 tablet. 08/29/19 Cephalexin [Keflex] 500 mg PO BID 7 Days #14 cap 11/04/19 Ibuprofen [Motrin] 600 mg PO Q8HR PRN #30 tab 12/09/19 Cephalexin [Keflex] 500 mg PO Q6HR 14 Days #56 cap 05/03/20 Allergies Allergy/AdvReac Type Severity Reaction Status Date / Time venom-honey bee Allergy Anaphylaxis Verified 05/03/20 22:30 [bee venom (honey bee)] Review of Systems ROS Statement: Those systems with pertinent positive or pertinent negative responses have been documented in the HPI. ROS Other: All systems not noted in ROS Statement are negative. Past Medical History Past Medical History: GERD/Reflux Additional Past Medical History / Comment(s): hiatal hernia, gastritis History of Any Multi-Drug Resistant Organisms: None Reported Past Surgical History: Appendectomy, Cholecystectomy, Hernia Repair, Tubal Ligation Additional Past Surgical History / Comment(s): d&c Past Anesthesia/Blood Transfusion Reactions: No Reported Reaction Past Psychological History: Anxiety, Bipolar, Depression Smoking Status: Current every day smoker Past Alcohol Use History: Occasional Past Drug Use History: None Reported - Past Family History Mother Family Medical History: Cancer General Exam - General Exam Comments Initial Comments: Constitutional: NAD, AOX3, Pt has pleasant affect. HEENT: NC/AT, trachea midline, External ears appear normal, without discharge. Mucous membranes moist. Eyes PERRLA, EOM intact. There is no scleral icterus. No pallor noted. Cardiopulmonary: RRR, no murmurs, rubs or gallops, no JVD noted. Lungs CTAB in anterior and posterior soni. No peripheral edema. Abdominal exam: Abdomen soft and non-distended. Abdomen non-tender to palpation in all 4 quadrants. Bowel sounds active in LLQ. No hepatosplenomegaly. No ecchymosis. Left flank is very mildly tender on palpation mid axillary line. CVA tenderness is negative bilaterally. Neuro: CN II-XII grossly intact. No nuchal rigidity. No raccon eyes, no mcallister sign, no hemotympanum. No cervical spinal tenderness. MSK: Full active ROM in upper and lower extremities, 5/5 stregnth. Limitations: no limitations Course Vital Signs 05/03/20 05/03/20 22:28 23:54 Temperature 98.2 F 97.5 F L Pulse Rate 101 H 95 Respiratory 16 19 Rate Blood Pressure 144/85 129/72 O2 Sat by Pulse 100 100 Oximetry Medical Decision Making - Medical Decision Making 39-year-old female patient presents to ED for evaluation of left flank pain. Started today. She believes she started urinary tract infection. Patient will tender stable, afebrile. Physical exam displayed very mild left flank tenderness. Laboratory investigations were obtained. This did display leukocytosis of 12.5 with a left shift. UA significant for being nitrite positive. 7 white blood cells. Trace leukocyte esterase. HCG is negative. Patient initiated and 2 g Rocephin emergency department. Patient discharged with Keflex 4 times a day will follow-up with [facility] provider tomorrow and return to ER if condition worsens. Case discussed with Dr. Hughes. - Lab Data Result diagrams: 05/03/20 22:45 05/03/20 22:45 Lab Results 05/03/20 05/03/20 05/03/20 Range/Units 22:45 22:45 22:45 WBC 12.5 H (3.8-10.6) k/uL RBC 4.73 (3.80-5.40) m/uL Hgb 14.4 (11.4-16.0) gm/dL Hct 44.3 (34.0-46.0) % MCV 93.6 (80.0-100.0) fL MCH 30.4 (25.0-35.0) pg MCHC 32.5 (31.0-37.0) g/dL RDW 12.5 (11.5-15.5) % Plt Count 288 (150-450) k/uL Neutrophils % 68 % Lymphocytes % 24 % Monocytes % 3 % Eosinophils % 3 % Basophils % 1 % Neutrophils # 8.5 H (1.3-7.7) k/uL Lymphocytes # 3.0 (1.0-4.8) k/uL Monocytes # 0.4 (0-1.0) k/uL Eosinophils # 0.4 (0-0.7) k/uL Basophils # 0.1 (0-0.2) k/uL Sodium (137-145) mmol/L Potassium (3.5-5.1) mmol/L Chloride (98-107) mmol/L Carbon Dioxide (22-30) mmol/L Anion Gap mmol/L BUN (7-17) mg/dL Creatinine (0.52-1.04) mg/dL Est GFR (CKD-EPI)AfAm (>60 ml/min/1.73 sqM) Est GFR (CKD-EPI)NonAf (>60 ml/min/1.73 sqM) Glucose (74-99) mg/dL Plasma Lactic Acid Ruben (0.7-2.0) mmol/L Calcium (8.4-10.2) mg/dL Total Bilirubin (0.2-1.3) mg/dL AST (14-36) U/L ALT (4-34) U/L Alkaline Phosphatase (38-126) U/L Total Protein (6.3-8.2) g/dL Albumin (3.5-5.0) g/dL Urine Color Yellow Urine Appearance Cloudy H (Clear) Urine pH 6.0 (5.0-8.0) Ur Specific [place] 1.014 (1.001-1.035) Urine Protein Negative (Negative) Urine Glucose (UA) Negative (Negative) Urine Ketones Negative (Negative) Urine Blood Trace H (Negative) Urine Nitrite Positive H (Negative) Urine Bilirubin Negative (Negative) Urine Urobilinogen <2.0 (<2.0) mg/dL Ur Leukocyte Esterase Trace H (Negative) Urine RBC 2 (0-5) /hpf Urine WBC 7 H (0-5) /hpf Ur Squamous Epith Cells 11 H (0-4) /hpf Urine Bacteria Rare H (None) /hpf Urine Mucus Rare H (None) /hpf Urine HCG, Qual Not Detected (Not Detectd) 05/03/20 05/03/20 Range/Units 22:45 22:45 WBC (3.8-10.6) k/uL RBC (3.80-5.40) m/uL Hgb (11.4-16.0) gm/dL Hct (34.0-46.0) % MCV (80.0-100.0) fL MCH (25.0-35.0) pg MCHC (31.0-37.0) g/dL RDW (11.5-15.5) % Plt Count (150-450) k/uL Neutrophils % % Lymphocytes % % Monocytes % % Eosinophils % % Basophils % % Neutrophils # (1.3-7.7) k/uL Lymphocytes # (1.0-4.8) k/uL Monocytes # (0-1.0) k/uL Eosinophils # (0-0.7) k/uL Basophils # (0-0.2) k/uL Sodium 138 (137-145) mmol/L Potassium 3.5 (3.5-5.1) mmol/L Chloride 105 (98-107) mmol/L Carbon Dioxide 25 (22-30) mmol/L Anion Gap 8 mmol/L BUN 8 (7-17) mg/dL Creatinine 0.77 (0.52-1.04) mg/dL Est GFR (CKD-EPI)AfAm >90 (>60 ml/min/1.73 sqM) Est GFR (CKD-EPI)NonAf >90 (>60 ml/min/1.73 sqM) Glucose 93 (74-99) mg/dL Plasma Lactic Acid Ruben 1.9 (0.7-2.0) mmol/L Calcium 9.5 (8.4-10.2) mg/dL Total Bilirubin 0.4 (0.2-1.3) mg/dL AST 20 (14-36) U/L ALT 14 (4-34) U/L Alkaline Phosphatase 80 (38-126) U/L Total Protein 7.7 (6.3-8.2) g/dL Albumin 4.3 (3.5-5.0) g/dL Urine Color Urine Appearance (Clear) Urine pH (5.0-8.0) Ur Specific [place] (1.001-1.035) Urine Protein (Negative) Urine Glucose (UA) (Negative) Urine Ketones (Negative) Urine Blood (Negative) Urine Nitrite (Negative) Urine Bilirubin (Negative) Urine Urobilinogen (<2.0) mg/dL Ur Leukocyte Esterase (Negative) Urine RBC (0-5) /hpf Urine WBC (0-5) /hpf Ur Squamous Epith Cells (0-4) /hpf Urine Bacteria (None) /hpf Urine Mucus (None) /hpf Urine HCG, Qual (Not Detectd) Disposition Clinical Impression: UTI (urinary tract infection) Disposition: HOME SELF-CARE Condition: Stable Instructions (If sedation given, give patient instructions): Urinary Tract Infection in Women (ED) Additional Instructions: Taken antibiotics as directed. Follow-up with primary care provider tomorrow. Return to ER if condition worsens in any way. Is patient prescribed a controlled substance at d/c from ED?: No Referrals: Haim Ash MD [Primary Care Provider] - 1-2 days
== END 2020-05-04 00:42 | disposition home or self-care (01) ==
LOC: EC 22:26
DX: N39.0 Urinary tract infection, site not specified (principal); F31.9 Bipolar disorder, unspecified; F41.9 Anxiety disorder, unspecified; F17.200 Nicotine dependence, unspecified, uncomplicated; Z79.899 Other long term (current) drug therapy; Z91.030 Bee allergy status; Z90.89 Acquired absence of other organs; Z90.49 Acquired absence of other specified parts of digestive tract; Z98.51 Tubal ligation status
CPT/HCPCS: 36415; 80053; 83605; 85025; 81001; 81025; 99284; 96365; J0696

== ENCOUNTER → 2020-06-03 | Outpatient (CLI) | payer OTHER ==
--- NOTE | 2020-06-03 14:27 | US ---
EXAMINATION TYPE: US kidneys/renal and bladder DATE OF EXAM: 06/03/2020 COMPARISON: NONE CLINICAL HISTORY: N39.0 urinary tract infection. Patient states having frequent UTI's. Nonsymptomati c at this time. EXAM MEASUREMENTS: Right Kidney: 9.6 x 4.5 x 4.1 cm Left Kidney: 10.1 x 4.9 x 4.8 cm Right Kidney: No hydronephrosis or masses seen, lower pole obscured by overlying bowel gas Left Kidney: No hydronephrosis or masses seen Bladder: Distended, internal debris seen Bilateral Jets seen There is no evidence for hydronephrosis at this point in time. No nephrolithiasis is seen. No niko s are identified. Bilateral ureteral jets are seen. IMPRESSION: Nonspecific Urinary bladder debris.
== END | disposition home or self-care (01) ==
LOC: RADUSWWP 13:42
PROVIDERS: ATTEND Pediatrics
DX: N39.0 Urinary tract infection, site not specified (principal)
CPT/HCPCS: 76770

== ENCOUNTER 2020-06-25 15:02 | Emergency (ER) | payer OTHER ==
[2020-06-25 15:15] VITALS: TEMP 98.3
[2020-06-25] MEDS ORDERED: ONDANSETRON 4 MG/2 ML VIAL IVP STA (15:42)
[2020-06-25] MEDS ORDERED: SODIUM CHLORIDE 0.9% 1,000 ML IV STA (15:42)
--- NOTE | 2020-06-25 16:01 | ED ---
Abdominal Pain HPI - General Chief Complaint: Abdominal Pain Stated Complaint: UTI Time Seen by Provider: 06/25/20 15:18 Source: patient Mode of arrival: ambulatory Limitations: no limitations - History of Present Illness Initial Comments: Patient is a 39-year-old female presenting to the emergency Department with complaints of lower abdominal discomfort, nausea and vomiting since yesterday. Patient states she was recently diagnosed with a UTI 3 days ago, started on Macrobid yesterday but states the pain and the nausea and vomiting just started yesterday and is getting worse. Patient states she has been hospitalized in the past for a kidney infection. She states she was treated for UTI 1 month ago, does not remember the antibiotic. She states this is a about the fourth UTI this year, she was referred to urologist however she has not seen them yet. She describes the abdominal pain as all lower, pressure and cramping. She admits to history of appendectomy, cholecystectomy, tubal ligation. Patient denies being at this time secondary to tubal ligation as well as having no recent intercourse. He denies any fever, chills, chest pain or shortness of breath. She denies any ALLERGIES. She has no further complaints at this time. Upon arrival to the ER, her vital signs are stable. - Related Data Home Medications Medication Instructions Recorded Confirmed Nitrofurantoin Monohyd/M-Cryst 100 mg PO BID 06/25/20 06/25/20 [Macrobid] Previous Rx's Medication Instructions Recorded Cephalexin [Keflex] 500 mg PO BID 5 Days #10 cap 06/25/20 Allergies Allergy/AdvReac Type Severity Reaction Status Date / Time venom-honey bee Allergy Anaphylaxis Verified 06/25/20 16:25 [bee venom (honey bee)] Review of Systems ROS Statement: Those systems with pertinent positive or pertinent negative responses have been documented in the HPI. ROS Other: All systems not noted in ROS Statement are negative. Past Medical History Past Medical History: GERD/Reflux Additional Past Medical History / Comment(s): hiatal hernia, gastritis History of Any Multi-Drug Resistant Organisms: None Reported Past Surgical History: Appendectomy, Cholecystectomy, Hernia Repair, Tubal Ligation Additional Past Surgical History / Comment(s): d&c Past Anesthesia/Blood Transfusion Reactions: No Reported Reaction Past Psychological History: Anxiety, Bipolar, Depression Smoking Status: Current every day smoker Past Alcohol Use History: Occasional Past Drug Use History: None Reported - Past Family History Mother Family Medical History: Cancer General Exam - General Exam Comments Initial Comments: GENERAL: Patient is well-developed and well-nourished. Patient is nontoxic and in no acute distress. HEAD: Atraumatic, normocephalic. EYES: Pupils equal round and reactive to light, extraocular movements intact, sclera anicteric, conjunctiva are normal. Eyelids were unremarkable. ENT: TMs normal, nares patent, oropharynx clear without exudates. Moist mucous membranes. NECK: Normal range of motion, supple without lymphadenopathy or JVD. LUNGS: Unlabored respirations. Breath sounds clear to auscultation bilaterally and equal. No wheezes rales or rhonchi. HEART: Regular rate and rhythm without murmurs, rubs or gallops. ABDOMEN: Tender with palpation of the suprapubic area. No flank pain. Soft, normoactive bowel sounds. No guarding, no rebound. No masses appreciated. : Deferred MUSCULOSKELETAL: Normal extremities with adequate strength and normal range of motion, no pitting or edema. No clubbing or cyanosis. NEUROLOGICAL: Normal speech, normal gait. PSYCH: Normal mood, normal affect. SKIN: Warm, Dry, normal turgor, no rashes or lesions noted. Limitations: no limitations Course Vital Signs 06/25/20 15:13 Temperature 98.3 F Pulse Rate 90 Respiratory 20 Rate Blood Pressure 127/78 O2 Sat by Pulse 98 Oximetry Medical Decision Making - Medical Decision Making Patient is 39-year-old female here for lower abdominal pain, n/v, recent diagnos is of a UTI 3 days ago. She is currently on Macrobid 1 day. Her vital signs are stable. She does have some suprapubic tenderness on palpation. Labs showed no acute process, lactic acid is normal, no white count. Urine shows no bacteria, 3 wbc's. Patient given fluids, Toradol, Zofran. I discussed these findings with the patient. Patient will be given Rocephin in the ER and will be switched to Keflex as an outpatient. She'll follow-up with her PCP. She is in agreement with this plan of care. She is stable for discharge. Case discussed with Dr. Russ. - Lab Data Result diagrams: 06/25/20 16:00 06/25/20 16:00 Lab Results 06/25/20 06/25/20 06/25/20 Range/Units 16:00 16:00 16:00 WBC 7.6 (3.8-10.6) k/uL RBC 4.87 (3.80-5.40) m/uL Hgb 14.3 (11.4-16.0) gm/dL Hct 45.0 (34.0-46.0) % MCV 92.4 (80.0-100.0) fL MCH 29.4 (25.0-35.0) pg MCHC 31.8 (31.0-37.0) g/dL RDW 12.7 (11.5-15.5) % Plt Count 263 (150-450) k/uL Neutrophils % 65 % Lymphocytes % 26 % Monocytes % 4 % Eosinophils % 3 % Basophils % 1 % Neutrophils # 5.0 (1.3-7.7) k/uL Lymphocytes # 2.0 (1.0-4.8) k/uL Monocytes # 0.3 (0-1.0) k/uL Eosinophils # 0.2 (0-0.7) k/uL Basophils # 0.1 (0-0.2) k/uL Sodium 137 (137-145) mmol/L Potassium 4.3 (3.5-5.1) mmol/L Chloride 107 (98-107) mmol/L Carbon Dioxide 24 (22-30) mmol/L Anion Gap 6 mmol/L BUN 5 L (7-17) mg/dL Creatinine 0.74 (0.52-1.04) mg/dL Est GFR (CKD-EPI)AfAm >90 (>60 ml/min/1.73 sqM) Est GFR (CKD-EPI)NonAf >90 (>60 ml/min/1.73 sqM) Glucose 95 (74-99) mg/dL Plasma Lactic Acid Ruben (0.7-2.0) mmol/L Calcium 9.4 (8.4-10.2) mg/dL Total Bilirubin 0.5 (0.2-1.3) mg/dL AST 20 (14-36) U/L ALT 10 (4-34) U/L Alkaline Phosphatase 83 (38-126) U/L Total Protein 7.0 (6.3-8.2) g/dL Albumin 4.0 (3.5-5.0) g/dL Urine Color Yellow Urine Appearance Cloudy H (Clear) Urine pH 6.5 (5.0-8.0) Ur Specific [place] 1.005 (1.001-1.035) Urine Protein Negative (Negative) Urine Glucose (UA) Negative (Negative) Urine Ketones Negative (Negative) Urine Blood Negative (Negative) Urine Nitrite Negative (Negative) Urine Bilirubin Negative (Negative) Urine Urobilinogen <2.0 (<2.0) mg/dL Ur Leukocyte Esterase Negative (Negative) Urine RBC 1 (0-5) /hpf Urine WBC 3 (0-5) /hpf Ur Squamous Epith Cells 18 H (0-4) /hpf 06/25/20 Range/Units 16:00 WBC (3.8-10.6) k/uL RBC (3.80-5.40) m/uL Hgb (11.4-16.0) gm/dL Hct (34.0-46.0) % MCV (80.0-100.0) fL MCH (25.0-35.0) pg MCHC (31.0-37.0) g/dL RDW (11.5-15.5) % Plt Count (150-450) k/uL Neutrophils % % Lymphocytes % % Monocytes % % Eosinophils % % Basophils % % Neutrophils # (1.3-7.7) k/uL Lymphocytes # (1.0-4.8) k/uL Monocytes # (0-1.0) k/uL Eosinophils # (0-0.7) k/uL Basophils # (0-0.2) k/uL Sodium (137-145) mmol/L Potassium (3.5-5.1) mmol/L Chloride (98-107) mmol/L Carbon Dioxide (22-30) mmol/L Anion Gap mmol/L BUN (7-17) mg/dL Creatinine (0.52-1.04) mg/dL Est GFR (CKD-EPI)AfAm (>60 ml/min/1.73 sqM) Est GFR (CKD-EPI)NonAf (>60 ml/min/1.73 sqM) Glucose (74-99) mg/dL Plasma Lactic Acid Ruben 0.8 (0.7-2.0) mmol/L Calcium (8.4-10.2) mg/dL Total Bilirubin (0.2-1.3) mg/dL AST (14-36) U/L ALT (4-34) U/L Alkaline Phosphatase (38-126) U/L Total Protein (6.3-8.2) g/dL Albumin (3.5-5.0) g/dL Urine Color Urine Appearance (Clear) Urine pH (5.0-8.0) Ur Specific [place] (1.001-1.035) Urine Protein (Negative) Urine Glucose (UA) (Negative) Urine Ketones (Negative) Urine Blood (Negative) Urine Nitrite (Negative) Urine Bilirubin (Negative) Urine Urobilinogen (<2.0) mg/dL Ur Leukocyte Esterase (Negative) Urine RBC (0-5) /hpf Urine WBC (0-5) /hpf Ur Squamous Epith Cells (0-4) /hpf Disposition Clinical Impression: UTI (urinary tract infection), Suprapubic abdominal pain Disposition: HOME SELF-CARE Condition: Stable Instructions (If sedation given, give patient instructions): Urinary Tract Infection in Women (ED) Additional Instructions: Please return to the Emergency Department if symptoms worsen or any other concerns. Take antibiotic as prescribed. Follow up with PCP. Prescriptions: Cephalexin [Keflex] 500 mg PO BID 5 Days #10 cap Is patient prescribed a controlled substance at d/c from ED?: No Referrals: Haim Ash MD [Primary Care Provider] - 1-2 days
[2020-06-25] MEDS ORDERED: KETOROLAC 30 MG/ML 1 ML VIAL IVP STA (16:11)
[2020-06-25 16:37] LABS: Basophils # (A) 0.1 k/uL (0-0.2); Basophils % (A) 1 %; Eosinophils # (A) 0.2 k/uL (0-0.7); Eosinophils % (A) 3 %; HGB 14.3 gm/dL (11.4-16.0); Lymphocytes % (A) 26 %; MCH 29.4 pg (25.0-35.0); MCHC 31.8 g/dL (31.0-37.0); MCV 92.4 fL (80.0-100.0); Mean Platelet Volume 8.7; Monocytes # (A) 0.3 k/uL (0-1.0); Monocytes % (A) 4 %; Neutrophils % (A) 65 %; Platelet Count 263 k/uL (150-450); RBC 4.87 m/uL (3.80-5.40); RDW 12.7 % (11.5-15.5); WBC 7.6 k/uL (3.8-10.6)
[2020-06-25 16:53] LABS: ALT 10 U/L (4-34); AST 20 U/L (14-36); African American GFR (CKD) >90 (>60 ml/min/1.73 sqM); Alkaline Phosphatase 83 U/L (38-126); Anion Gap 6 mmol/L; Blood Urea Nitrogen 5 mg/dL (7-17); Calcium 9.4 mg/dL (8.4-10.2); Carbon Dioxide 24 mmol/L (22-30); Chloride 107 mmol/L (98-107); Glucose 95 mg/dL (74-99); Non-African American GFR(CKD) >90 (>60 ml/min/1.73 sqM); Potassium 4.3 mmol/L (3.5-5.1); Sodium 137 mmol/L (137-145); Total Bilirubin 0.5 mg/dL (0.2-1.3)
[2020-06-25 17:00] LABS: Appearance,Urine Cloudy (Clear); Bilirubin,Urine Negative (Negative); Blood,Urine Negative (Negative); Color,Urine Yellow; Glucose,Urine (UA) Negative (Negative); Ketones,Urine Negative (Negative); Leukocyte Esterase,Urine Negative (Negative); Nitrite,Urine Negative (Negative); PH, Urine 6.5 (5.0-8.0); Protein,Urine Negative (Negative); RBC,Urine 1 /hpf (0-5); Specific Gravity,Urine 1.005 (1.001-1.035); Squamous Epithelial Cell,Urine 18 /hpf (0-4); Urobilinogen,Urine <2.0 mg/dL (<2.0); WBC,Urine 3 /hpf (0-5)
[2020-06-25] MEDS ORDERED: cefTRIAXone IN SWFI 1,000 MG/10 ML SYRINGE IVP STA (17:15)
[2020-06-25 17:51] VITALS: BP 126/80; PULSE 86; RESP 18
== END 2020-06-25 17:49 | disposition home or self-care (01) ==
LOC: EC 15:02
DX: N39.0 Urinary tract infection, site not specified (principal); F17.200 Nicotine dependence, unspecified, uncomplicated; Z91.030 Bee allergy status; Z90.49 Acquired absence of other specified parts of digestive tract; Z90.89 Acquired absence of other organs; Z98.51 Tubal ligation status
CPT/HCPCS: 36415; 80053; 83605; 85025; 81001; 87040; 99284; 96374; 96375 ×2; 96361; J2405; J0696; J1885

== ENCOUNTER 2020-07-12 01:11 | Emergency (ER) | payer OTHER ==
[2020-07-12 01:20] VITALS: RESP 16
--- NOTE | 2020-07-12 01:42 | ED ---
Abdominal Pain HPI - General Chief Complaint: Abdominal Pain Stated Complaint: abd pain Time Seen by Provider: 07/12/20 01:25 Source: patient Mode of arrival: ambulatory Limitations: no limitations - History of Present Illness Initial Comments: Patient is a 39-year-old female history of IBS presenting to emergency Department with chief complaint of abdominal pain. Patient reports her abdominal pain has been going on and off for several months with occasional flareups in the left lower quadrant region. Patient reports most recent episode started today about 12 hours prior to arrival. Patient reports the pain is crampy with occasional sharp episodes. States the pain is not postprandial. She does report some nausea with 2 episodes of nonbilious nonbloody vomiting. She does have history of recurrent UTIs with occasional pyelonephritis. Patient reports she had a UTI about 3 weeks ago and finished taking Keflex. States low probability for . States she started her menstrual period 2 days ago. Does have surgical history of appendectomy, cholecystectomy, tubal ligation. Denies any night sweats or chills. No chest pain shortness of breath back pain. Denies hematuria, hematochezia or melena. - Related Data Home Medications Medication Instructions Recorded Confirmed Nitrofurantoin Monohyd/M-Cryst 100 mg PO BID 06/25/20 06/25/20 [Macrobid] Previous Rx's Medication Instructions Recorded Cephalexin [Keflex] 500 mg PO BID 5 Days #10 cap 06/25/20 Allergies Allergy/AdvReac Type Severity Reaction Status Date / Time venom-honey bee Allergy Anaphylaxis Verified 07/12/20 01:20 [bee venom (honey bee)] Review of Systems ROS Statement: Those systems with pertinent positive or pertinent negative responses have been documented in the HPI. ROS Other: All systems not noted in ROS Statement are negative. Past Medical History Past Medical History: GERD/Reflux Additional Past Medical History / Comment(s): hiatal hernia, gastritis, bladder infections History of Any Multi-Drug Resistant Organisms: None Reported Past Surgical History: Appendectomy, Cholecystectomy, Hernia Repair, Tubal Ligation Additional Past Surgical History / Comment(s): d&c Past Anesthesia/Blood Transfusion Reactions: No Reported Reaction Past Psychological History: Anxiety, Bipolar, Depression Smoking Status: Current every day smoker Past Alcohol Use History: None Reported Past Drug Use History: None Reported - Past Family History Mother Family Medical History: Cancer General Exam Limitations: no limitations General appearance: alert, in no apparent distress Head exam: Present: atraumatic, normocephalic, normal inspection Eye exam: Present: normal appearance, PERRL, EOMI Pupils: Present: normal accommodation ENT exam: Present: normal exam, normal oropharynx, mucous membranes moist Neck exam: Present: normal inspection, full ROM Respiratory exam: Present: normal lung sounds bilaterally. Absent: respiratory distress, wheezes Cardiovascular Exam: Present: regular rate, normal rhythm, normal heart sounds GI/Abdominal exam: Present: soft, tenderness (Left lower quadrant,mild.). Absent: distended, guarding, rebound Extremities exam: Present: normal inspection, full ROM. Absent: tenderness Back exam: Present: normal inspection, full ROM. Absent: tenderness Neurological exam: Present: alert, oriented X3 Psychiatric exam: Present: normal affect, normal mood Skin exam: Present: warm, dry, intact, normal color Course Vital Signs 07/12/20 07/12/20 01:18 02:40 Temperature 98.3 F 98.0 F Pulse Rate 78 54 L Respiratory 16 16 Rate Blood Pressure 134/84 122/77 O2 Sat by Pulse 99 99 Oximetry Medical Decision Making - Medical Decision Making Patient is a 39-year-old female with history of IBS presenting to emergency Department with chief complaint of abdominal pain. On exam patient has mild left lower quadrant pain which is typical for her during IBS flare. Patient does have history of ovarian cysts and she is currently out of a 2 of her menstrual period. Laboratory work is unremarkable. Patient was given fluids a nd Toradol. On reevaluation patient reports improvement in symptoms. I suspect her pain is related to either an IBS flareup or ovarian in etiology. Patient states she is set to follow-up with her primary care physician on Monday. Strict return parameters were thoroughly discussed the patient was understanding and agreeable. Case discussed with physician. - Lab Data Result diagrams: 07/12/20 02:07 07/12/20 02:07 Lab Results 07/12/20 07/12/20 07/12/20 Range/Units 02:07 02:07 02:07 WBC 7.7 (3.8-10.6) k/uL RBC 4.61 (3.80-5.40) m/uL Hgb 13.6 (11.4-16.0) gm/dL Hct 42.1 (34.0-46.0) % MCV 91.3 (80.0-100.0) fL MCH 29.5 (25.0-35.0) pg MCHC 32.3 (31.0-37.0) g/dL RDW 12.7 (11.5-15.5) % Plt Count 253 (150-450) k/uL Neutrophils % 52 % Lymphocytes % 37 % Monocytes % 4 % Eosinophils % 4 % Basophils % 1 % Neutrophils # 4.0 (1.3-7.7) k/uL Lymphocytes # 2.8 (1.0-4.8) k/uL Monocytes # 0.3 (0-1.0) k/uL Eosinophils # 0.3 (0-0.7) k/uL Basophils # 0.1 (0-0.2) k/uL Sodium 139 (137-145) mmol/L Potassium 3.8 (3.5-5.1) mmol/L Chloride 109 H (98-107) mmol/L Carbon Dioxide 24 (22-30) mmol/L Anion Gap 6 mmol/L BUN 8 (7-17) mg/dL Creatinine 0.72 (0.52-1.04) mg/dL Est GFR (CKD-EPI)AfAm >90 (>60 ml/min/1.73 sqM) Est GFR (CKD-EPI)NonAf >90 (>60 ml/min/1.73 sqM) Glucose 85 (74-99) mg/dL Calcium 9.2 (8.4-10.2) mg/dL Total Bilirubin 0.3 (0.2-1.3) mg/dL AST 18 (14-36) U/L ALT 10 (4-34) U/L Alkaline Phosphatase 68 (38-126) U/L Total Protein 6.7 (6.3-8.2) g/dL Albumin 3.9 (3.5-5.0) g/dL Lipase 108 (23-300) U/L Urine Color Light Yellow Urine Appearance Clear (Clear) Urine pH 6.0 (5.0-8.0) Ur Specific [place] 1.007 (1.001-1.035) Urine Protein Negative (Negative) Urine Glucose (UA) Negative (Negative) Urine Ketones Negative (Negative) Urine Blood Moderate H (Negative) Urine Nitrite Negative (Negative) Urine Bilirubin Negative (Negative) Urine Urobilinogen <2.0 (<2.0) mg/dL Ur Leukocyte Esterase Negative (Negative) Urine RBC 3 (0-5) /hpf Urine WBC 1 (0-5) /hpf Ur Squamous Epith Cells 1 (0-4) /hpf Urine Mucus Rare H (None) /hpf Urine HCG, Qual (Not Detectd) 07/12/20 Range/Units 02:07 WBC (3.8-10.6) k/uL RBC (3.80-5.40) m/uL Hgb (11.4-16.0) gm/dL Hct (34.0-46.0) % MCV (80.0-100.0) fL MCH (25.0-35.0) pg MCHC (31.0-37.0) g/dL RDW (11.5-15.5) % Plt Count (150-450) k/uL Neutrophils % % Lymphocytes % % Monocytes % % Eosinophils % % Basophils % % Neutrophils # (1.3-7.7) k/uL Lymphocytes # (1.0-4.8) k/uL Monocytes # (0-1.0) k/uL Eosinophils # (0-0.7) k/uL Basophils # (0-0.2) k/uL Sodium (137-145) mmol/L Potassium (3.5-5.1) mmol/L Chloride (98-107) mmol/L Carbon Dioxide (22-30) mmol/L Anion Gap mmol/L BUN (7-17) mg/dL Creatinine (0.52-1.04) mg/dL Est GFR (CKD-EPI)AfAm (>60 ml/min/1.73 sqM) Est GFR (CKD-EPI)NonAf (>60 ml/min/1.73 sqM) Glucose (74-99) mg/dL Calcium (8.4-10.2) mg/dL Total Bilirubin (0.2-1.3) mg/dL AST (14-36) U/L ALT (4-34) U/L Alkaline Phosphatase (38-126) U/L Total Protein (6.3-8.2) g/dL Albumin (3.5-5.0) g/dL Lipase (23-300) U/L Urine Color Urine Appearance (Clear) Urine pH (5.0-8.0) Ur Specific [place] (1.001-1.035) Urine Protein (Negative) Urine Glucose (UA) (Negative) Urine Ketones (Negative) Urine Blood (Negative) Urine Nitrite (Negative) Urine Bilirubin (Negative) Urine Urobilinogen (<2.0) mg/dL Ur Leukocyte Esterase (Negative) Urine RBC (0-5) /hpf Urine WBC (0-5) /hpf Ur Squamous Epith Cells (0-4) /hpf Urine Mucus (None) /hpf Urine HCG, Qual Not Detected (Not Detectd) Disposition Clinical Impression: Abdominal pain Disposition: HOME SELF-CARE Condition: Stable Instructions (If sedation given, give patient instructions): Irritable Bowel Syndrome (DC), Abdominal Pain (ED) Additional Instructions: Follow with her primary care physician. Return to emergency department if symptoms worsen. Is patient prescribed a controlled substance at d/c from ED?: No Referrals: Haim Ash MD [Primary Care Provider] - 1-2 days Time of Disposition: 02:56
[2020-07-12] MEDS ORDERED: ONDANSETRON 4 MG/2 ML VIAL IVP STA (01:49)
[2020-07-12] MEDS ORDERED: PANTOPRAZOLE 40 MG/10 ML VIAL IVP STA (01:49)
[2020-07-12] MEDS ORDERED: SODIUM CHLORIDE 0.9% 1,000 ML IV STA (01:49)
[2020-07-12] MEDS ORDERED: KETOROLAC 15 MG/ML 1 ML VIAL IVP STA (01:49)
[2020-07-12 02:26] LABS: Appearance,Urine Clear (Clear); Bilirubin,Urine Negative (Negative); Blood,Urine Moderate (Negative); Color,Urine Light Yellow; Glucose,Urine (UA) Negative (Negative); Ketones,Urine Negative (Negative); Leukocyte Esterase,Urine Negative (Negative); Mucus,Urine Rare /hpf; Nitrite,Urine Negative (Negative); Protein,Urine Negative (Negative); RBC,Urine 3 /hpf (0-5); Specific Gravity,Urine 1.007 (1.001-1.035); Squamous Epithelial Cell,Urine 1 /hpf (0-4); Urobilinogen,Urine <2.0 mg/dL (<2.0); WBC,Urine 1 /hpf (0-5)
[2020-07-12 02:29] LABS: Basophils # (A) 0.1 k/uL (0-0.2); Basophils % (A) 1 %; Eosinophils # (A) 0.3 k/uL (0-0.7); Eosinophils % (A) 4 %; HCT 42.1 % (34.0-46.0); HGB 13.6 gm/dL (11.4-16.0); Lymphocytes # (A) 2.8 k/uL (1.0-4.8); Lymphocytes % (A) 37 %; MCH 29.5 pg (25.0-35.0); MCHC 32.3 g/dL (31.0-37.0); MCV 91.3 fL (80.0-100.0); Mean Platelet Volume 8.2; Monocytes # (A) 0.3 k/uL (0-1.0); Monocytes % (A) 4 %; Neutrophils % (A) 52 %; Platelet Count 253 k/uL (150-450); RBC 4.61 m/uL (3.80-5.40); RDW 12.7 % (11.5-15.5); WBC 7.7 k/uL (3.8-10.6)
[2020-07-12 02:40] LABS: ALT 10 U/L (4-34); AST 18 U/L (14-36); African American GFR (CKD) >90 (>60 ml/min/1.73 sqM); Albumin 3.9 g/dL (3.5-5.0); Alkaline Phosphatase 68 U/L (38-126); Anion Gap 6 mmol/L; Blood Urea Nitrogen 8 mg/dL (7-17); Calcium 9.2 mg/dL (8.4-10.2); Carbon Dioxide 24 mmol/L (22-30); Chloride 109 mmol/L (98-107); Glucose 85 mg/dL (74-99); Non-African American GFR(CKD) >90 (>60 ml/min/1.73 sqM); Potassium 3.8 mmol/L (3.5-5.1); Sodium 139 mmol/L (137-145); Total Bilirubin 0.3 mg/dL (0.2-1.3); Total Protein 6.7 g/dL (6.3-8.2)
[2020-07-12 03:04] VITALS: BP 122/77; PULSE 54; TEMP 98
== END 2020-07-12 03:33 | disposition home or self-care (01) ==
LOC: EC 01:11
DX: R10.32 Left lower quadrant pain (principal); R11.2 Nausea with vomiting, unspecified; F17.200 Nicotine dependence, unspecified, uncomplicated; Z90.49 Acquired absence of other specified parts of digestive tract; Z91.030 Bee allergy status
CPT/HCPCS: 36415; 80053; 81001; 81025; 83690; 85025; 96361; 96374; 96375; 99284

== ENCOUNTER 2020-09-16 18:05 | Emergency (ER) | payer OTHER ==
[2020-09-16 18:42] LABS: Amorphous Sediment,Urine Occasional /hpf; Appearance,Urine Cloudy (Clear); Bilirubin,Urine Negative (Negative); Blood,Urine Negative (Negative); Color,Urine Yellow; Glucose,Urine (UA) Negative (Negative); Ketones,Urine Negative (Negative); Leukocyte Esterase,Urine Negative (Negative); Mucus,Urine Rare /hpf; Nitrite,Urine Negative (Negative); PH, Urine 7.5 (5.0-8.0); Protein,Urine Negative (Negative); Specific Gravity,Urine 1.013 (1.001-1.035); Squamous Epithelial Cell,Urine 24 /hpf (0-4); Urobilinogen,Urine <2.0 mg/dL (<2.0); WBC,Urine 1 /hpf (0-5)
[2020-09-16] MEDS ORDERED: KETOROLAC 15 MG/ML 1 ML VIAL IM STA (19:09)
[2020-09-16] MEDS ORDERED: CEPHALEXIN 500MG STARTER PACK 4 CAP BTL PO STA (19:09)
--- NOTE | 2020-09-16 19:11 | ED ---
Female Urogenital HPI - General Chief complaint: Urogenital Stated complaint: UTI Time Seen by Provider: 09/16/20 18:31 Source: patient, RN notes reviewed, old records reviewed Mode of arrival: ambulatory Limitations: no limitations - History of Present Illness Initial comments: Patient is a 40-year-old female presents emergency department today for may luation for chief complaint of dysuria. She relates that she's having some right flank pain. She reports when she has flank pain she has history of multiple urinary tract infections. Her last UTI was treated towards the beginning of this month with Keflex. She reports that she follows with urologist when she keeps getting frequent UTIs. She reports the pain is a dull in nature at this time. She denies any hematuria. Denies any nausea or vomiting. - Related Data Home Medications Medication Instructions Recorded Confirmed Nitrofurantoin Monohyd/M-Cryst 100 mg PO BID 06/25/20 06/25/20 [Macrobid] Previous Rx's Medication Instructions Recorded Cephalexin [Keflex] 500 mg PO BID 5 Days #10 cap 06/25/20 Cephalexin [Keflex] 500 mg PO Q8HR #21 cap 09/16/20 Allergies Allergy/AdvReac Type Severity Reaction Status Date / Time venom-honey bee Allergy Anaphylaxis Verified 09/16/20 18:13 [bee venom (honey bee)] Review of Systems ROS Statement: Those systems with pertinent positive or pertinent negative responses have been documented in the HPI. ROS Other: All systems not noted in ROS Statement are negative. Past Medical History Past Medical History: GERD/Reflux Additional Past Medical History / Comment(s): hiatal hernia, gastritis, bladder infections History of Any Multi-Drug Resistant Organisms: None Reported Past Surgical History: Appendectomy, Cholecystectomy, Hernia Repair, Tubal Ligation Additional Past Surgical History / Comment(s): d&c Past Anesthesia/Blood Transfusion Reactions: No Reported Reaction Past Psychological History: Anxiety, Bipolar, Depression Smoking Status: Current every day smoker Past Alcohol Use History: None Reported Past Drug Use History: None Reported - Past Family History Mother Family Medical History: Cancer General Exam - General Exam Comments Initial Comments: 32-year-old female. No distress. Limitations: no limitations General appearance: alert, in no apparent distress Head exam: Present: atraumatic, normocephalic, normal inspection Eye exam: Present: normal appearance ENT exam: Present: normal exam, mucous membranes moist Neck exam: Present: normal inspection. Absent: tenderness, meningismus, lymphadenopathy Respiratory exam: Present: normal lung sounds bilaterally. Absent: respiratory distress, wheezes, rales, rhonchi, stridor Cardiovascular Exam: Present: regular rate, normal rhythm, normal heart sounds. Absent: systolic murmur, diastolic murmur, rubs, gallop, clicks GI/Abdominal exam: Present: soft, normal bowel sounds. Absent: distended, tenderness, guarding, rebound, rigid Extremities exam: Present: normal inspection, full ROM, normal capillary refill. Absent: tenderness, pedal edema, joint swelling, calf tenderness Back exam: Present: normal inspection Neurological exam: Present: alert, oriented X3, CN II-XII intact Course Vital Signs 09/16/20 09/16/20 18:09 19:40 Temperature 98.1 F 98.6 F Pulse Rate 94 81 Respiratory 18 15 Rate Blood Pressure 125/78 131/74 O2 Sat by Pulse 99 95 Oximetry Medical Decision Making - Medical Decision Making 32-year-old female presents to return today with complaints of flank pain and dysuria. Patient this time has urinalysis completed no obvious signs of infection. I discussed other source of patient's pain again checked lab work. She states that she does not want to do this today she plans to just follow up with urologist or primary care doctor wanted to be treated for the suspected The UTI. Discussed we can culture the urine and write for Keflex of symptoms continue to persist. Discussed return parameters and following up. - Lab Data Lab Results 09/16/20 09/16/20 Range/Units 18:26 18:26 Urine Color Yellow Urine Appearance Cloudy H (Clear) Urine pH 7.5 (5.0-8.0) Ur Specific [place] 1.013 (1.001-1.035) Urine Protein Negative (Negative) Urine Glucose (UA) Negative (Negative) Urine Ketones Negative (Negative) Urine Blood Negative (Negative) Urine Nitrite Negative (Negative) Urine Bilirubin Negative (Negative) Urine Urobilinogen <2.0 (<2.0) mg/dL Ur Leukocyte Esterase Negative (Negative) Urine WBC 1 (0-5) /hpf Ur Squamous Epith Cells 24 H (0-4) /hpf Amorphous Sediment Occasional H (None) /hpf Urine Mucus Rare H (None) /hpf Urine HCG, Qual Not Detected (Not Detectd) Disposition Clinical Impression: Flank pain Disposition: HOME SELF-CARE Condition: Good Instructions (If sedation given, give patient instructions): Urinary Tract Infection in Women (ED) Additional Instructions: Please use medication as discussed. Please follow up with family doctor if symptoms have not improved over the next two days. Please return to the emergency room if your symptoms increase or worsen or for any other concerns. Prescriptions: Cephalexin [Keflex] 500 mg PO Q8HR #21 cap Is patient prescribed a controlled substance at d/c from ED?: No Referrals: Haim Ash MD [Primary Care Provider] - 1-2 days Time of Disposition: 19:24
[2020-09-16 19:42] VITALS: BP 131/74; PULSE 81; RESP 15; TEMP 98.6
== END 2020-09-16 19:40 | disposition home or self-care (01) ==
LOC: EC 18:05
DX: R10.9 Unspecified abdominal pain (principal); R30.0 Dysuria; F17.200 Nicotine dependence, unspecified, uncomplicated; Z91.030 Bee allergy status; Z87.19 Personal history of other diseases of the digestive system; Z90.49 Acquired absence of other specified parts of digestive tract; Z87.440 Personal history of urinary (tract) infections
CPT/HCPCS: 81001; 81025; 87086; 96372; 99284; J1885

== ENCOUNTER 2021-01-19 16:33 | Emergency (ER) | payer OTHER ==
[2021-01-19] MEDS ORDERED: KETOROLAC 15 MG/ML 1 ML VIAL IVP STA (16:56)
[2021-01-19] MEDS ORDERED: diphenhydrAMINE 50 MG/ML 1 ML VIAL IVP STA (16:56)
[2021-01-19] MEDS ORDERED: METOCLOPRAMIDE 5 MG/ML 2 ML VIAL IVP STA (16:56)
[2021-01-19] MEDS ORDERED: SODIUM CHLORIDE 0.9% 500 ML 500 ML IV ONE (16:58)
[2021-01-19] MEDS ORDERED: SODIUM CHLORIDE 0.9% 1,000 ML IV ONE (16:58)
--- NOTE | 2021-01-19 17:28 | ED ---
General Adult HPI - General Chief complaint: Headache Stated complaint: headache Time Seen by Provider: 01/19/21 16:46 Source: patient, RN notes reviewed Mode of arrival: ambulatory Limitations: no limitations - History of Present Illness Initial comments: this is a 32-year-old female presents emergency Department chief complaint of headache, not feeling well, fever congestion. Patient states started several days ago seen by PCP who did go but testing which was negative. Patient states she was diagnosed with acute bronchitis started on Z-Robinson and prednisone. Patient states she feels like her congestion starting to get better but states that she still having headaches and body aches. Patient does have some left flank pain. She does admit to recurrent urinary tract infections, history of pyelonephritis. Patient has not taken any recent Tylenol Motrin no significant neck pain or neck stiffness. Patient states the headache is diffuse in nature - Related Data Home Medications Medication Instructions Recorded Confirmed Nitrofurantoin Monohyd/M-Cryst 100 mg PO BID 06/25/20 06/25/20 [Macrobid] Previous Rx's Medication Instructions Recorded Cephalexin [Keflex] 500 mg PO BID 5 Days #10 cap 06/25/20 Cephalexin [Keflex] 500 mg PO Q8HR #21 cap 09/16/20 Allergies Allergy/AdvReac Type Severity Reaction Status Date / Time venom-honey bee Allergy Anaphylaxis Verified 01/19/21 16:44 [bee venom (honey bee)] Review of Systems ROS Statement: Those systems with pertinent positive or pertinent negative responses have been documented in the HPI. ROS Other: All systems not noted in ROS Statement are negative. Past Medical History Past Medical History: GERD/Reflux Additional Past Medical History / Comment(s): hiatal hernia, gastritis, bladder infections History of Any Multi-Drug Resistant Organisms: None Reported Past Surgical History: Appendectomy, Cholecystectomy, Hernia Repair, Tubal Ligation Additional Past Surgical History / Comment(s): d&c Past Anesthesia/Blood Transfusion Reactions: No Reported Reaction Past Psychological History: Anxiety, Bipolar, Depression Smoking Status: Current every day smoker Past Alcohol Use History: None Reported Past Drug Use History: None Reported - Past Family History Mother Family Medical History: Cancer General Exam Limitations: no limitations General appearance: alert, in no apparent distress Head exam: Present: atraumatic, normocephalic, normal inspection Eye exam: Present: normal appearance, PERRL, EOMI. Absent: scleral icterus, conjunctival injection, periorbital swelling ENT exam: Present: normal exam, mucous membranes moist Neck exam: Present: normal inspection. Absent: tenderness, meningismus, lymphadenopathy Respiratory exam: Present: normal lung sounds bilaterally. Absent: respiratory distress, wheezes, rales, rhonchi, stridor Cardiovascular Exam: Present: regular rate, normal rhythm, normal heart sounds. Absent: systolic murmur, diastolic murmur, rubs, gallop, clicks GI/Abdominal exam: Present: soft, normal bowel sounds. Absent: distended, tenderness, guarding, rebound, rigid Back exam: Present: CVA tenderness (L). Absent: CVA tenderness (R) Neurological exam: Present: alert, oriented X3, CN II-XII intact, reflexes normal, other (finger to nose intact). Absent: motor sensory deficit Skin exam: Present: warm, dry, intact, normal color. Absent: rash Course Vital Signs 01/19/21 16:40 Temperature 98.0 F Pulse Rate 78 Respiratory 18 Rate Blood Pressure 139/90 O2 Sat by Pulse 99 Oximetry - Reevaluation(s) Reevaluation #1: 01/19/21 18:04 patient resting comfortably, in no signs of distress headache has resolved, discharged in stable condition Medical Decision Making - Medical Decision Making 40-year-old presented for headache. Headache is resolved. She is neurologically intact no signs of infection. Patient we discharged stable condition return parameters were discussed. - Lab Data Result diagrams: 01/19/21 17:22 01/19/21 17:22 Lab Results 01/19/21 01/19/21 01/19/21 Range/Units 17:22 17:22 17:22 WBC 10.5 (3.8-10.6) k/uL RBC 4.84 (3.80-5.40) m/uL Hgb 14.7 (11.4-16.0) gm/dL Hct 44.1 (34.0-46.0) % MCV 91.1 (80.0-100.0) fL MCH 30.4 (25.0-35.0) pg MCHC 33.4 (31.0-37.0) g/dL RDW 12.4 (11.5-15.5) % Plt Count 311 (150-450) k/uL MPV 7.3 Neutrophils % 70 % Lymphocytes % 23 % Monocytes % 3 % Eosinophils % 3 % Basophils % 1 % Neutrophils # 7.3 (1.3-7.7) k/uL Lymphocytes # 2.4 (1.0-4.8) k/uL Monocytes # 0.3 (0-1.0) k/uL Eosinophils # 0.3 (0-0.7) k/uL Basophils # 0.1 (0-0.2) k/uL Sodium 135 L (137-145) mmol/L Potassium 4.3 (3.5-5.1) mmol/L Chloride 101 (98-107) mmol/L Carbon Dioxide 29 (22-30) mmol/L Anion Gap 5 mmol/L BUN 13 (7-17) mg/dL Creatinine 0.90 (0.52-1.04) mg/dL Est GFR (CKD-EPI)AfAm >90 (>60 ml/min/1.73 sqM) Est GFR (CKD-EPI)NonAf 82 (>60 ml/min/1.73 sqM) Glucose 95 (74-99) mg/dL Calcium 9.2 (8.4-10.2) mg/dL Total Bilirubin 0.6 (0.2-1.3) mg/dL AST 17 (14-36) U/L ALT 16 (4-34) U/L Alkaline Phosphatase 73 (38-126) U/L Total Protein 7.1 (6.3-8.2) g/dL Albumin 4.0 (3.5-5.0) g/dL Urine Color Yellow Urine Appearance Clear (Clear) Urine pH 6.5 (5.0-8.0) Ur Specific [place] 1.012 (1.001-1.035) Urine Protein Negative (Negative) Urine Glucose (UA) Negative (Negative) Urine Ketones Negative (Negative) Urine Blood Negative (Negative) Urine Nitrite Negative (Negative) Urine Bilirubin Negative (Negative) Urine Urobilinogen <2.0 (<2.0) mg/dL Ur Leukocyte Esterase Negative (Negative) Coronavirus (PCR) (Not Detectd) 01/19/21 Range/Units 17:23 WBC (3.8-10.6) k/uL RBC (3.80-5.40) m/uL Hgb (11.4-16.0) gm/dL Hct (34.0-46.0) % MCV (80.0-100.0) fL MCH (25.0-35.0) pg MCHC (31.0-37.0) g/dL RDW (11.5-15.5) % Plt Count (150-450) k/uL MPV Neutrophils % % Lymphocytes % % Monocytes % % Eosinophils % % Basophils % % Neutrophils # (1.3-7.7) k/uL Lymphocytes # (1.0-4.8) k/uL Monocytes # (0-1.0) k/uL Eosinophils # (0-0.7) k/uL Basophils # (0-0.2) k/uL Sodium (137-145) mmol/L Potassium (3.5-5.1) mmol/L Chloride (98-107) mmol/L Carbon Dioxide (22-30) mmol/L Anion Gap mmol/L BUN (7-17) mg/dL Creatinine (0.52-1.04) mg/dL Est GFR (CKD-EPI)AfAm (>60 ml/min/1.73 sqM) Est GFR (CKD-EPI)NonAf (>60 ml/min/1.73 sqM) Glucose (74-99) mg/dL Calcium (8.4-10.2) mg/dL Total Bilirubin (0.2-1.3) mg/dL AST (14-36) U/L ALT (4-34) U/L Alkaline Phosphatase (38-126) U/L Total Protein (6.3-8.2) g/dL Albumin (3.5-5.0) g/dL Urine Color Urine Appearance (Clear) Urine pH (5.0-8.0) Ur Specific [place] (1.001-1.035) Urine Protein (Negative) Urine Glucose (UA) (Negative) Urine Ketones (Negative) Urine Blood (Negative) Urine Nitrite (Negative) Urine Bilirubin (Negative) Urine Urobilinogen (<2.0) mg/dL Ur Leukocyte Esterase (Negative) Coronavirus (PCR) Not Detected (Not Detectd) Disposition Clinical Impression: Headache Disposition: HOME SELF-CARE Condition: Stable Instructions (If sedation given, give patient instructions): Acute Headache (ED) Additional Instructions: Please return to the Emergency Department if symptoms worsen or any other concerns. Is patient prescribed a controlled substance at d/c from ED?: No Referrals: Haim Ash MD [Primary Care Provider] - 1-2 days Time of Disposition: 18:06
[2021-01-19 17:32] LABS: Basophils # (A) 0.1 k/uL (0-0.2); Basophils % (A) 1 %; Eosinophils # (A) 0.3 k/uL (0-0.7); Eosinophils % (A) 3 %; HCT 44.1 % (34.0-46.0); HGB 14.7 gm/dL (11.4-16.0); Lymphocytes # (A) 2.4 k/uL (1.0-4.8); Lymphocytes % (A) 23 %; MCH 30.4 pg (25.0-35.0); MCHC 33.4 g/dL (31.0-37.0); MCV 91.1 fL (80.0-100.0); Mean Platelet Volume 7.3; Monocytes # (A) 0.3 k/uL (0-1.0); Monocytes % (A) 3 %; Neutrophils # (A) 7.3 k/uL (1.3-7.7); Neutrophils % (A) 70 %; Platelet Count 311 k/uL (150-450); RBC 4.84 m/uL (3.80-5.40); RDW 12.4 % (11.5-15.5); WBC 10.5 k/uL (3.8-10.6)
[2021-01-19 17:35] LABS: Appearance,Urine Clear (Clear); Bilirubin,Urine Negative (Negative); Blood,Urine Negative (Negative); Color,Urine Yellow; Glucose,Urine (UA) Negative (Negative); Ketones,Urine Negative (Negative); Leukocyte Esterase,Urine Negative (Negative); Nitrite,Urine Negative (Negative); PH, Urine 6.5 (5.0-8.0); Protein,Urine Negative (Negative); Specific Gravity,Urine 1.012 (1.001-1.035); Urobilinogen,Urine <2.0 mg/dL (<2.0)
[2021-01-19 17:43] LABS: ALT 16 U/L (4-34); AST 17 U/L (14-36); African American GFR (CKD) >90 (>60 ml/min/1.73 sqM); Alkaline Phosphatase 73 U/L (38-126); Anion Gap 5 mmol/L; Blood Urea Nitrogen 13 mg/dL (7-17); Calcium 9.2 mg/dL (8.4-10.2); Carbon Dioxide 29 mmol/L (22-30); Chloride 101 mmol/L (98-107); Glucose 95 mg/dL (74-99); Non-African American GFR(CKD) 82 (>60 ml/min/1.73 sqM); Potassium 4.3 mmol/L (3.5-5.1); Sodium 135 mmol/L (137-145); Total Bilirubin 0.6 mg/dL (0.2-1.3); Total Protein 7.1 g/dL (6.3-8.2)
[2021-01-19 19:35] VITALS: BP 121/81; PULSE 81; RESP 16; TEMP 97.9
== END 2021-01-19 19:15 | disposition home or self-care (01) ==
LOC: EC 16:33
DX: R51.9 Headache, unspecified (principal); F32.9 Major depressive disorder, single episode, unspecified; F17.200 Nicotine dependence, unspecified, uncomplicated; Z90.49 Acquired absence of other specified parts of digestive tract; Z98.51 Tubal ligation status
CPT/HCPCS: 36415; 80053; 85025; 81003; 87635; 99284; 96374; 96375; 96361; J1200; J2765; J1885

== ENCOUNTER 2021-04-15 09:46 | Day surgery (SDC) | payer OTHER ==
[2021-03-25 09:53] VITALS: BMI 29.7
[~2021-04-15 09:46] MED LIST: LACTATED RINGERS 1,000 ML IV SCH
[2021-04-15 10:10] VITALS: RESP 16; TEMP 97.5
[2021-04-15] MEDS ORDERED: LIDOCAINE 1% INJ 10MG/ML (20 ML MDV) ONE (10:38)
[2021-04-15] MEDS ORDERED: PROPOFOL 10 MG/ML 20 ML VIAL IV ONE (10:38)
--- NOTE | 2021-04-15 10:44 | P.GSHP ---
History of Present Illness H&P Date: 04/15/21 Chief Complaint: GERD, GI bleed This is a 32-year-old female who presents today for EGD and colonoscopy. GERD and GI bleed. Past Medical History Past Medical History: GERD/Reflux Additional Past Medical History / Comment(s): Scoliosis, hiatal hernia, gastritis, freq UTI. Shortness of breath for 6 months, no testing but trying to quit smoking. c/o vomiting, diarrhea on/off for 5 years. History of Any Multi-Drug Resistant Organisms: None Reported Past Surgical History: Appendectomy, Cholecystectomy, Hernia Repair, Tubal Ligation Additional Past Surgical History / Comment(s): D&C, abd hernia Past Anesthesia/Blood Transfusion Reactions: No Reported Reaction Smoking Status: Current every day smoker - Past Family History Mother Family Medical History: Cancer Additional Family Medical History / Comment(s): lymphoma Medications and Allergies Home Medications Medication Instructions Recorded Confirmed Type Citalopram Hydrobromide [CeleXA] 40 mg PO DAILY@1600 01/19/21 04/12/21 History Acetaminophen [Tylenol Extra 500 - 1,000 mg PO DIRECTED PRN 03/25/21 04/12/21 History Strength] Cyclobenzaprine [Flexeril] 10 mg PO DIRECTED PRN 03/25/21 04/12/21 History Ibuprofen [Motrin Ib] 200 mg PO Q8H PRN 03/25/21 04/12/21 History Varenicline Tartrate [Chantix 0.5 mg PO DIRECTED 03/25/21 04/12/21 History Starter Pack] Allergies Allergy/AdvReac Type Severity Reaction Status Date / Time venom-honey bee Allergy Anaphylaxis Verified 04/15/21 10:12 [bee venom (honey bee)] Surgical - Exam Vital Signs Temp Pulse Resp BP Pulse Ox 97.5 F L 84 16 133/66 98 04/15/21 10:09 04/15/21 10:09 04/15/21 10:09 04/15/21 10:09 04/15/21 10:09 - General well developed, well nourished, no distress - Eyes PERRL - ENT normal pinna - Neck no masses - Respiratory normal expansion - Cardiovascular Rhythm: regular - Abdomen Abdomen: soft, non tender Assessment and Plan Assessment: GERD, GI bleed. We'll perform EGD and colonoscopy.
--- NOTE | 2021-04-15 11:17 | P.OP ---
Date of Procedure: 04/15/21 Preoperative Diagnosis: GERD GI bleed Postoperative Diagnosis: Antral gastritis Internal hemorrhoids Rectal polyp Procedure(s) Performed: EGD Colonoscopy Anesthesia: MAC Surgeon: David Albrecht Pathology: other (AntrumColon polyp) Condition: stable Disposition: PACU Description of Procedure: The patient's placed on the operative table in the lateral position. She received IV sedation. The gastric was placed oropharynx passed in the esophagus and stomach. Scope was then placed through the pylorus. The first and second portion of the duodenum appeared normal. Scope was then brought back the antrum this is mildly inflamed. A biopsies performed. Scope was then retroflexed and the remainder of the stomach appeared normal. There is no significant hiatal hernia. The GE junction was at 40 cm. The distal esophagus appeared normal. The proximal esophagus appeared normal. The scope was withdrawn for patient. Next digital rectal exam was performed which revealed internal hemorrhoids. The flexible colonoscope was then placed patient anus and passed throughout the entire colon. The ileocecal valve was visualized. The cecum, ascending and transverse colon appeared normal. The descending and sigmoid colon appeared normal. Scope was brought back the rectum and there was a small peduncular polyp. This removed with the snare. Scope was withdrawn for patient and internal hemorrhoids were seen.
[2021-04-15 11:26] VITALS: BP 124/67; PULSE 80
== END 2021-04-15 13:19 | disposition home or self-care (01) ==
LOC: ORWHC2ENDO 09:46
PROVIDERS: ATTEND Surgery
DX: D12.8 Benign neoplasm of rectum (principal); K29.70 Gastritis, unspecified, without bleeding; K64.8 Other hemorrhoids; M41.9 Scoliosis, unspecified; Z87.440 Personal history of urinary (tract) infections; Z90.89 Acquired absence of other organs; Z90.49 Acquired absence of other specified parts of digestive tract; Z98.51 Tubal ligation status; Z98.890 Other specified postprocedural states; F17.210 Nicotine dependence, cigarettes, uncomplicated; Z80.7 Family history of other malignant neoplasms of lymphoid, hematopoietic and related tissues; Z79.899 Other long term (current) drug therapy; Z91.030 Bee allergy status; Z97.2 Presence of dental prosthetic device (complete) (partial); K21.9 Gastro-esophageal reflux disease without esophagitis; K92.2 Gastrointestinal hemorrhage, unspecified; Z87.19 Personal history of other diseases of the digestive system
CPT/HCPCS: 81025; 88305; 45385; 43239; J2001; J2704

== ENCOUNTER 2021-08-08 17:19 | Emergency (ER) | payer OTHER ==
[2021-08-08 17:23] VITALS: TEMP 97.6
[2021-08-08] MEDS ORDERED: predniSONE 50 MG TAB PO STA (18:27)
[2021-08-08] MEDS ORDERED: IPRATROPIUM-ALBUTEROL 3 ML NEB INHALATION STA ×2 (18:27→20:29)
[2021-08-08 19:21] LABS: Appearance,Urine Cloudy (Clear); Bacteria,Urine Rare /hpf; Bilirubin,Urine Negative (Negative); Blood,Urine Trace (Negative); Color,Urine Yellow; Glucose,Urine (UA) Negative (Negative); Ketones,Urine Negative (Negative); Leukocyte Esterase,Urine Small (Negative); Mucus,Urine Rare /hpf; Nitrite,Urine Negative (Negative); PH, Urine 5.5 (5.0-8.0); Protein,Urine Negative (Negative); RBC,Urine 3 /hpf (0-5); Specific Gravity,Urine 1.013 (1.001-1.035); Squamous Epithelial Cell,Urine 20 /hpf (0-4); Urobilinogen,Urine <2.0 mg/dL (<2.0); WBC,Urine 2 /hpf (0-5)
--- NOTE | 2021-08-08 19:24 | ED ---
General Adult HPI - General Chief complaint: Upper Respiratory Infection Stated complaint: sob/cough Time Seen by Provider: 08/08/21 17:56 Source: patient, RN notes reviewed, old records reviewed Mode of arrival: ambulatory Limitations: no limitations - History of Present Illness Initial comments: Patient is a 40-year-old female with past medical history remarkable for chronic tobacco use, bronchitis, GERD who presents emergency Department Complaining of upper respiratory illness. She is vaccinated for COVID-19. She describes a three-day history of worsening rhinorrhea, productive cough of white mucus. She states she does have a history of bronchitis. She nurses some mild chest tightness over this time as well. She is no history of asthma or COPD that has been diagnosed. She states that last time this happened she required steroids, albuterol inhaler, antibiotics. She denies any known sick contacts. Denies any abdominal pain, nausea, vomiting. Patient states that she has a "feeling" that she may have a UTI at this time. She requests urinalysis as well. I was in agreement this plan. She is no other acute complaints at this time. - Related Data Home Medications Medication Instructions Recorded Confirmed Citalopram Hydrobromide [CeleXA] 40 mg PO DAILY@1600 01/19/21 04/12/21 Acetaminophen [Tylenol Extra 500 - 1,000 mg PO DIRECTED PRN 03/25/21 04/12/21 Strength] Cyclobenzaprine [Flexeril] 10 mg PO DIRECTED PRN 03/25/21 04/12/21 Ibuprofen [Motrin Ib] 200 mg PO Q8H PRN 03/25/21 04/12/21 Varenicline Tartrate [Chantix 0.5 mg PO DIRECTED 03/25/21 04/12/21 Starter Pack] Previous Rx's Medication Instructions Recorded Albuterol Inhaler [Ventolin Hfa 2 puff INHALATION RT-TID #8 gm 08/08/21 Inhaler] Doxycycline Hyclate 100 mg PO BID 7 Days #14 tab 08/08/21 predniSONE [Deltasone] 40 mg PO DAILY 5 Days #10 tab 08/08/21 Allergies Allergy/AdvReac Type Severity Reaction Status Date / Time venom-honey bee Allergy Anaphylaxis Verified 08/08/21 17:23 [bee venom (honey bee)] Review of Systems ROS Statement: Those systems with pertinent positive or pertinent negative responses have been documented in the HPI. Review of Systems: CONST: Denies fever EYES: Denies blurry vision ENT: Denies nasal congestion C/V: Endorses chest tightness worse with coughing RESP: Endorses cough GI: Denies abdominal pain : Denies dysuria SKIN: Denies rash. MSK: Denies joint pain. NEURO: Denies headache ROS Other: All systems not noted in ROS Statement are negative. Past Medical History Past Medical History: GERD/Reflux Additional Past Medical History / Comment(s): Scoliosis, hiatal hernia, gastritis, freq UTI. Shortness of breath for 6 months, no testing but trying to quit smoking. c/o vomiting, diarrhea on/off for 5 years. History of Any Multi-Drug Resistant Organisms: None Reported Past Surgical History: Appendectomy, Cholecystectomy, Hernia Repair, Tubal Ligation Additional Past Surgical History / Comment(s): D&C, abd hernia Past Anesthesia/Blood Transfusion Reactions: No Reported Reaction Past Psychological History: Anxiety, Bipolar, Depression Smoking Status: Current every day smoker Past Alcohol Use History: None Reported Past Drug Use History: None Reported - Past Family History Mother Family Medical History: Cancer Additional Family Medical History / Comment(s): lymphoma General Exam - General Exam Comments Initial Comments: General: Appears in no acute distress. HEAD: Normal with no signs of head trauma. EYES: PERRLA, EOMI, conjunctiva normal, no discharge. ENT: Patient is active rhinorrhea. RESPIRATORY: Mildly wheezy bilaterally without any obvious rhonchi or rales. No increased work of breathing. C/V: Regular rate and rhythm. S1 and S2 auscultated, no edema, peripheral pulses 2+ and intact throughout ABD: Abd is soft, nontender, nondistended EXT: Normal range of motion, no obvious deformity SKIN: No rashes or lesions observed on exposed skin. NEURO: Alert and oriented 4. Limitations: no limitations Course Vital Signs 08/08/21 08/08/21 08/08/21 17:21 20:34 20:44 Temperature 97.6 F 97.6 F Pulse Rate 103 H 100 75 Respiratory 20 18 Rate Blood Pressure 142/96 117/75 O2 Sat by Pulse 98 97 Oximetry Medical Decision Making - Medical Decision Making Based on patient's presentation and physical exam, she is likely expressing upper respiratory illness. We'll obtain a chest x-ray to the patient with 60 mg by mouth prednisone as well as a breathing sugar while she is here in the department. Due to the patient's chest tightness which is likely secondary to her coughing and acute reactive airway disease secondary to her upper respiratory infection, we will obtain a screening EKG as well as an she was in agreement this plan. Patient's screening EKG shows a normal sinus rhythm without concerning for acute ischemia. Patient's chest x-ray shows a possible interstitial left-sided perihilar infiltrate which could be a pneumonia. Obtained a urinalysis at her request and it was a contaminated catch without any signs of acute UTI. She is not . COVID-19 swab was negative. On reevaluation come patient's wheezing is improved. I discussed the results of her imaging and laboratory studies with her. I believe it is safer to be discharged home. She was in agreement this plan. She'll be started on doxycycline and given a 20 mg dose and department and a prescription for. She'll also be sent home on prednisone 40 mg daily for 5 days as well as an albuterol inhaler. She was in agreement this plan. I will provide the patient with a prescription for albuterol inhaler, prednisone 40 mg daily for 5 days, doxycycline twice a day for 7 days. I instructed the patient to follow up with their PCP in the next 3 days. I explained that the patient should return to the emergency department if they experience any worsening symptoms. Strict return precautions were discussed with the patient. The patient expressed understanding of these instructions. I answered all questions that the patient had. The patient was discharged home in fair condition with their prescriptions and follow up information. - Lab Data Lab Results 08/08/21 08/08/21 08/08/21 Range/Units 18:54 18:54 18:54 Urine Color Yellow Urine Appearance Cloudy H (Clear) Urine pH 5.5 (5.0-8.0) Ur Specific [place] 1.013 (1.001-1.035) Urine Protein Negative (Negative) Urine Glucose (UA) Negative (Negative) Urine Ketones Negative (Negative) Urine Blood Trace H (Negative) Urine Nitrite Negative (Negative) Urine Bilirubin Negative (Negative) Urine Urobilinogen <2.0 (<2.0) mg/dL Ur Leukocyte Esterase Small H (Negative) Urine RBC 3 (0-5) /hpf Urine WBC 2 (0-5) /hpf Ur Squamous Epith Cells 20 H (0-4) /hpf Urine Bacteria Rare H (None) /hpf Urine Mucus Rare H (None) /hpf Urine HCG, Qual Not Detected (Not Detectd) Coronavirus (PCR) Not Detected (Not Detectd) - EKG Data -: EKG Interpreted by Me EKG Comments: 12-lead Electrocardiogram Interpretation Note EKG was reviewed and interpreted by myself. 12-lead ECG performed at 1850 is interpreted by me as revealing normal sinus rhythm at a rate of 62 beats per minute. [place] is normal. MO interval is 160 ms, QRS duration is 92 ms, QTc is 399 ms.. There were no ST or T wave abnormalities to suggest myocardial ischemia or injury. R wave progression across the precordium was satisfactory. By my interpretation this EKG is non-diagnostic for acute ischemia. Disposition Clinical Impression: Bronchitis, Pneumonia Disposition: HOME SELF-CARE Condition: Fair Instructions (If sedation given, give patient instructions): Upper Respiratory Infection (ED) Prescriptions: predniSONE [Deltasone] 40 mg PO DAILY 5 Days #10 tab Doxycycline Hyclate 100 mg PO BID 7 Days #14 tab Albuterol Inhaler [Ventolin Hfa Inhaler] 2 puff INHALATION RT-TID #8 gm Is patient prescribed a controlled substance at d/c from ED?: No Referrals: Haim Ash MD [Primary Care Provider] - 1-2 days
[2021-08-08] MEDS ORDERED: ALBUTEROL HFA INHALER INHALATION STA (19:42)
--- NOTE | 2021-08-08 19:57 | XR ---
EXAMINATION TYPE: XR chest 2V DATE OF EXAM: 08/08/2021 COMPARISON: 02/26/2014 HISTORY: Chest pain. Cough. TECHNIQUE: 2 views FINDINGS: There is thoracic dextroscoliosis. Heart and mediastinum are normal. Costophrenic angles ar e clear. There are no hilar masses. Lungs are clear of consolidation. There is some mild increased de nsity around the left pulmonary hilum consistent with some minimal interstitial infiltrate. IMPRESSION: There is some new minimal interstitial left side perihilar infiltrate compared to last ex am. Normal heart.
[2021-08-08] MEDS ORDERED: DOXYCYCLINE 100 MG CAP PO STA (20:17)
[2021-08-08 20:46] VITALS: BP 117/75; PULSE 75; RESP 18
== END 2021-08-08 20:45 | disposition home or self-care (01) ==
LOC: EC 17:19
DX: J40 Bronchitis, not specified as acute or chronic (principal); J18.9 Pneumonia, unspecified organism; F17.200 Nicotine dependence, unspecified, uncomplicated; Z20.822 Contact with and (suspected) exposure to COVID-19; Z91.030 Bee allergy status
CPT/HCPCS: 94640 ×2; 93005; 81001; 81025; 87635; 71046; 99285; J7512

== ENCOUNTER 2021-08-10 09:26 | Emergency (ER) | payer OTHER ==
[2021-08-10 09:52] VITALS: BP 133/84; RESP 18; TEMP 97.9
[2021-08-10] MEDS ORDERED: methylPREDNISolone SOD SUCCI 125 MG/2 ML VIAL IM STA (10:45)
[2021-08-10] MEDS ORDERED: IPRATROPIUM-ALBUTEROL 3 ML NEB INHALATION STA (10:45)
[2021-08-10] MEDS ORDERED: BENZONATATE 100 MG CAP PO STA (10:46)
[2021-08-10 10:59] VITALS: PULSE 77
--- NOTE | 2021-08-10 11:04 | ED ---
General Adult HPI - General Chief complaint: Shortness of Breath Stated complaint: Cough Source: patient Mode of arrival: ambulatory Limitations: no limitations - History of Present Illness Initial comments: 40-year-old female without any significant past medical history presents to the emergency room for a chief complaint of cough. Patient reports for the past 4 or 5 days she has had a cough. States she gets into coughing fits that cause her to feel short of breath. Patient states that she was seen here 2 days ago and diagnosed with pneumonia, started on antibiotics, inhaler, and steroids. Patient states she tried to go to work today and did not feel she could make it through the day so went home. They told her that she needed to get a note and she could not get into her doctor so came back to the emergency room for a note from work. Patient denies any fevers. Denies any immunocompromising factors such as chemotherapy or splenectomy.Patient has no other complaints at this time including shortness of breath, chest pain, abdominal pain, nausea or vomiting, headache, or visual changes. - Related Data Home Medications Medication Instructions Recorded Confirmed Ibuprofen [Motrin Ib] 200 - 600 mg PO Q8H PRN 03/25/21 08/10/21 Acetaminophen Tab [Tylenol] 650 mg PO Q4H PRN 08/10/21 08/10/21 Dm/Acetaminophen/Doxylamine [Vicks 30 ml PO Q6H PRN 08/10/21 08/10/21 Nyquil Cold-Flu Liquid] Phenylephrine/Dm/Acetaminop/GG 20 ml PO Q4H PRN 08/10/21 08/10/21 [Mucinex Fast-Max Cold-Flu Liq] Previous Rx's Medication Instructions Recorded Albuterol Inhaler [Ventolin Hfa 2 puff INHALATION RT-TID #8 gm 08/08/21 Inhaler] Doxycycline Hyclate 100 mg PO BID 7 Days #14 tab 08/08/21 predniSONE [Deltasone] 40 mg PO DAILY 5 Days #10 tab 08/08/21 Benzonatate [Tessalon Perles] 200 mg PO Q8H PRN #15 cap 08/10/21 Allergies Allergy/AdvReac Type Severity Reaction Status Date / Time venom-honey bee Allergy Anaphylaxis Verified 08/10/21 10:48 [bee venom (honey bee)] Review of Systems ROS Statement: Those systems with pertinent positive or pertinent negative responses have been documented in the HPI. ROS Other: All systems not noted in ROS Statement are negative. Past Medical History Past Medical History: GERD/Reflux Additional Past Medical History / Comment(s): Scoliosis, hiatal hernia, gastritis, freq UTI. Shortness of breath for 6 months, no testing but trying to quit smoking. c/o vomiting, diarrhea on/off for 5 years. History of Any Multi-Drug Resistant Organisms: None Reported Past Surgical History: Appendectomy, Cholecystectomy, Hernia Repair, Tubal Ligation Additional Past Surgical History / Comment(s): D&C, abd hernia Past Anesthesia/Blood Transfusion Reactions: No Reported Reaction Past Psychological History: Anxiety, Bipolar, Depression Smoking Status: Current every day smoker Past Alcohol Use History: None Reported Past Drug Use History: None Reported - Past Family History Mother Family Medical History: Cancer Additional Family Medical History / Comment(s): lymphoma General Exam Limitations: no limitations General appearance: alert, in no apparent distress Head exam: Present: atraumatic Eye exam: Present: normal appearance, PERRL, EOMI. Absent: scleral icterus, conjunctival injection ENT exam: Present: normal exam, mucous membranes moist Neck exam: Present: normal inspection, full ROM. Absent: tenderness Respiratory exam: Present: wheezes (wheezing noted throughout all lung soni). Absent: respiratory distress Cardiovascular Exam: Present: regular rate, normal rhythm, normal heart sounds GI/Abdominal exam: Present: soft, normal bowel sounds. Absent: distended, tenderness Course Vital Signs 08/10/21 08/10/21 09:46 10:57 Temperature 97.9 F Pulse Rate 84 77 Respiratory 18 18 Rate Blood Pressure 133/84 O2 Sat by Pulse 97 Oximetry Medical Decision Making - Medical Decision Making Vitals stable. Patient is well appearing. Patient presents for work note. Patient was treated for pneumonia 2 days ago and when she tried to go to work today she felt she couldn't make it through the day and her work required a not e. She could not get into her doctor's. She denies any shortness of breath. States when she gets into coughing fits she gets some shortness of breath but otherwise does not feel short of breath. Patient has been taking her medication and has been prescribed doxycycline, albuterol, and steroids. Physical exam does reveal wheezing bilaterally without any respiratory distress. Reveals an early infiltrate in the right perihilar region. Possibly improved infiltrate of the left lung. Patient does not want a repeat coronavirus test, was -2 days ago. At this time we will continue her doxycycline and steroids and inhaler. DuoNeb did help with her symptoms as well. She will follow-up with her doctor. She will return for any worsening symptoms. Work note will be given.I discussed this case with attending Dr. Russ who agrees with this assessment and treatment plan. Disposition Clinical Impression: Cough, Pneumonia Disposition: HOME SELF-CARE Condition: Good Instructions (If sedation given, give patient instructions): Acute Cough (ED) Additional Instructions: Continue to take her medications from previous visit. Take Tessalon Perles as needed for cough. Follow-up with your doctor. Return to the emergency room for any worsening symptoms. Prescriptions: Benzonatate [Tessalon Perles] 200 mg PO Q8H PRN #15 cap PRN Reason: Cough Is patient prescribed a controlled substance at d/c from ED?: No Referrals: Haim Ash MD [Primary Care Provider] - 1-2 days Time of Disposition: 12:10
--- NOTE | 2021-08-10 11:42 | XR ---
EXAMINATION TYPE: XR chest 2V DATE OF EXAM: 08/10/2021 COMPARISON: 08/08/2021 TECHNIQUE: PA and lateral views submitted. HISTORY: Cough FINDINGS: Patchy right perihilar infiltrate. No pleural effusion or pneumothorax mildly coarsened interstitium. Degenerative change of the spine. Surgical clip in the right upper quadrant.. Curvature of the spin e. Correlate for scoliosis. IMPRESSION: 1. Patchy atelectasis or early infiltrate right perihilar region. Correlate for mild bronchitis or in terstitial pneumonitis..
== END 2021-08-10 12:12 | disposition home or self-care (01) ==
LOC: EC 09:26
DX: J18.9 Pneumonia, unspecified organism (principal); F17.200 Nicotine dependence, unspecified, uncomplicated; Z91.030 Bee allergy status
CPT/HCPCS: 99284; 96372; 94640; 71046; J2930

== ENCOUNTER 2021-09-07 04:56 | Emergency (ER) | payer OTHER ==
[2021-09-07] MEDS ORDERED: dexAMETHasone 2 MG TAB PO STA (05:17)
[2021-09-07] MEDS ORDERED: IBUPROFEN 800 MG TAB PO STA (05:17)
[2021-09-07] MEDS ORDERED: AMOXIC-POT CLAV 875-125MG 1 EACH TAB PO STA (05:17)
--- NOTE | 2021-09-07 05:18 | ED ---
ENT HPI - General Chief complaint: ENT Stated complaint: Sore throat Time Seen by Provider: 09/07/21 05:02 Source: patient, RN notes reviewed, old records reviewed Mode of arrival: ambulatory Limitations: no limitations - History of Present Illness Initial comments: This is a 41-year-old female to the emergency department for evaluation regarding significant swollen uvula. Patient has significant sore throat difficulty swallowing. No fevers and swelling in his neck. Patient does feel feverish but no documented fevers. No other symptoms. Complaints. No chest pain or shortness of breath. Patient is able to eat and drink MD complaint: sore throat, difficulty swallowing -: hour(s) Location: tongue, throat Severity: moderate Severity scale (1-10): 4 Quality: stabbing Consistency: constant Improves with: none Worsens with: swallowing Context-Epistaxis: history of similar Associated Symptoms: sore throat - Related Data Home Medications Medication Instructions Recorded Confirmed Ibuprofen [Motrin Ib] 200 - 600 mg PO Q8H PRN 03/25/21 08/10/21 Acetaminophen Tab [Tylenol] 650 mg PO Q4H PRN 08/10/21 08/10/21 Dm/Acetaminophen/Doxylamine [Vicks 30 ml PO Q6H PRN 08/10/21 08/10/21 Nyquil Cold-Flu Liquid] Phenylephrine/Dm/Acetaminop/GG 20 ml PO Q4H PRN 08/10/21 08/10/21 [Mucinex Fast-Max Cold-Flu Liq] Previous Rx's Medication Instructions Recorded Albuterol Inhaler [Ventolin Hfa 2 puff INHALATION RT-TID #8 gm 08/08/21 Inhaler] Doxycycline Hyclate 100 mg PO BID 7 Days #14 tab 08/08/21 predniSONE [Deltasone] 40 mg PO DAILY 5 Days #10 tab 08/08/21 Benzonatate [Tessalon Perles] 200 mg PO Q8H PRN #15 cap 08/10/21 Amoxic-Pot Clav 875-125Mg 1 tab PO Q12HR #20 tablet 09/07/21 [Augmentin 875-125] Allergies Allergy/AdvReac Type Severity Reaction Status Date / Time venom-honey bee Allergy Anaphylaxis Verified 09/07/21 05:03 [bee venom (honey bee)] Review of Systems ROS Statement: Those systems with pertinent positive or pertinent negative responses have been documented in the HPI. ROS Other: All systems not noted in ROS Statement are negative. Past Medical History Past Medical History: GERD/Reflux Additional Past Medical History / Comment(s): Scoliosis, hiatal hernia, gastritis, freq UTI. Shortness of breath for 6 months, no testing but trying to quit smoking. c/o vomiting, diarrhea on/off for 5 years. History of Any Multi-Drug Resistant Organisms: None Reported Past Surgical History: Appendectomy, Cholecystectomy, Hernia Repair, Tubal Ligation Additional Past Surgical History / Comment(s): D&C, abd hernia Past Anesthesia/Blood Transfusion Reactions: No Reported Reaction Past Psychological History: Anxiety, Bipolar, Depression Smoking Status: Current every day smoker Past Alcohol Use History: None Reported Past Drug Use History: None Reported - Past Family History Mother Family Medical History: Cancer Additional Family Medical History / Comment(s): lymphoma General Exam General appearance: alert, in no apparent distress Head exam: Present: atraumatic, normocephalic, normal inspection Eye exam: Present: normal appearance, PERRL, EOMI. Absent: scleral icterus, conjunctival injection, periorbital swelling ENT exam: Present: normal exam, mucous membranes moist. Absent: other (Significantly swollen uvula) Neck exam: Present: normal inspection. Absent: tenderness, meningismus, lymphadenopathy Respiratory exam: Present: normal lung sounds bilaterally. Absent: respiratory distress, wheezes, rales, rhonchi, stridor Cardiovascular Exam: Present: regular rate, normal rhythm, normal heart sounds. Absent: systolic murmur, diastolic murmur, rubs, gallop, clicks GI/Abdominal exam: Present: soft, normal bowel sounds. Absent: distended, tenderness, guarding, rebound, rigid Extremities exam: Present: normal inspection, full ROM, normal capillary refill. Absent: tenderness, pedal edema, joint swelling, calf tenderness Back exam: Present: normal inspection Neurological exam: Present: alert, oriented X3, CN II-XII intact Psychiatric exam: Present: normal affect, normal mood Skin exam: Present: warm, dry, intact, normal color. Absent: rash Course Vital Signs 09/07/21 09/07/21 04:56 05:29 Temperature 97.4 F L 97.8 F Pulse Rate 96 83 Respiratory 16 18 Rate Blood Pressure 122/80 135/84 O2 Sat by Pulse 99 99 Oximetry - Reevaluation(s) Reevaluation #1: Medical record is reviewed Patient symptoms are significantly improved Patient family informed results questions answered Medical Decision Making - Medical Decision Making 41 female to the emergency department for evaluation of sore throat positive for uvulitis on exam. Patient will be placed on antibiotics and can be discharged home Disposition Clinical Impression: Uvulitis Disposition: HOME SELF-CARE Condition: Good Instructions (If sedation given, give patient instructions): Uvulitis (ED) Prescriptions: Amoxic-Pot Clav 875-125Mg [Augmentin 875-125] 1 tab PO Q12HR #20 tablet Is patient prescribed a controlled substance at d/c from ED?: No Referrals: Haim Ash MD [Primary Care Provider] - 1-2 days
[2021-09-07 05:38] VITALS: BP 135/84; PULSE 83; RESP 18; TEMP 97.8
== END 2021-09-07 05:32 | disposition home or self-care (01) ==
LOC: EC 04:56
DX: K12.2 Cellulitis and abscess of mouth (principal); F17.200 Nicotine dependence, unspecified, uncomplicated; Z91.030 Bee allergy status
CPT/HCPCS: 99283; J8540

== ENCOUNTER 2022-08-03 12:05 | Emergency (ER) | payer OTHER ==
[2022-08-03 12:55] VITALS: BP 134/84; PULSE 84; RESP 16; TEMP 97.8
[2022-08-03] MEDS ORDERED: KETOROLAC 15 MG/ML 1 ML VIAL IM STA (14:42)
[2022-08-03] MEDS ORDERED: PENICILLIN V POTASSIUM 250 MG TAB PO STA (14:42)
--- NOTE | 2022-08-03 15:24 | ED ---
ENT HPI - General Chief complaint: Dental/Oral Stated complaint: stomach issues, abcess tooth Time Seen by Provider: 08/03/22 13:55 Source: patient Mode of arrival: ambulatory Limitations: no limitations - History of Present Illness Initial comments: Patient is a 41-year-old female who presents to the emergency department with a chief complaint of tooth pain and vomiting. Patient states the tooth pain started last night. States pain is all over her bottom teeth. She has not noticed any swelling. States she is currently trying to get into a dentist. Patient also reports her kids are at home sick with the flu vomiting. Patient began vomiting this morning. Denies fever, chills, shortness of breath, chest pain, abdominal pain, diarrhea, and other concerns. - Related Data Home Medications Medication Instructions Recorded Confirmed Ibuprofen [Motrin Ib] 200 - 600 mg PO Q8H PRN 03/25/21 08/10/21 Acetaminophen Tab [Tylenol] 650 mg PO Q4H PRN 08/10/21 08/10/21 Dm/Acetaminophen/Doxylamine [Vicks 30 ml PO Q6H PRN 08/10/21 08/10/21 Nyquil Cold-Flu Liquid] Phenylephrine/Dm/Acetaminop/GG 20 ml PO Q4H PRN 08/10/21 08/10/21 [Mucinex Fast-Max Cold-Flu Liq] Previous Rx's Medication Instructions Recorded Albuterol Inhaler [Ventolin Hfa 2 puff INHALATION RT-TID #8 gm 08/08/21 Inhaler] Doxycycline Hyclate 100 mg PO BID 7 Days #14 tab 08/08/21 predniSONE [Deltasone] 40 mg PO DAILY 5 Days #10 tab 08/08/21 Benzonatate [Tessalon Perles] 200 mg PO Q8H PRN #15 cap 08/10/21 Amoxic-Pot Clav 875-125Mg 1 tab PO Q12HR #20 tablet 09/07/21 [Augmentin 875-125] Ibuprofen [Motrin] 800 mg PO Q8H 7 Days #21 tab 08/03/22 Ondansetron Odt [Zofran Odt] 4 mg PO Q8HR PRN #12 tab 08/03/22 Penicillin V Potassium [Pen Vee K] 500 mg PO QID #28 tablet 08/03/22 Allergies Allergy/AdvReac Type Severity Reaction Status Date / Time venom-honey bee Allergy Anaphylaxis Verified 08/03/22 12:55 [bee venom (honey bee)] Review of Systems ROS Statement: Those systems with pertinent positive or pertinent negative responses have been documented in the HPI. ROS Other: All systems not noted in ROS Statement are negative. Past Medical History Past Medical History: GERD/Reflux Additional Past Medical History / Comment(s): Scoliosis, hiatal hernia, gastritis, freq UTI. Shortness of breath for 6 months, no testing but trying to quit smoking. c/o vomiting, diarrhea on/off for 5 years. History of Any Multi-Drug Resistant Organisms: None Reported Past Surgical History: Appendectomy, Cholecystectomy, Hernia Repair, Tubal Ligation Additional Past Surgical History / Comment(s): D&C, abd hernia Past Anesthesia/Blood Transfusion Reactions: No Reported Reaction Past Psychological History: Anxiety, Bipolar, Depression Smoking Status: Current every day smoker Past Alcohol Use History: None Reported Past Drug Use History: None Reported - Past Family History Mother Family Medical History: Cancer Additional Family Medical History / Comment(s): lymphoma General Exam Limitations: no limitations General appearance: alert, in no apparent distress ENT exam: Present: normal oropharynx (Missing top teeth. Widespread poor deniti tion with multiple dental cavities eroded into the pulp ) Respiratory exam: Present: normal lung sounds bilaterally. Absent: respiratory distress, wheezes, rales, rhonchi, stridor Cardiovascular Exam: Present: regular rate, normal rhythm, normal heart sounds. Absent: systolic murmur, diastolic murmur, rubs, gallop, clicks Neurological exam: Present: alert, oriented X3, CN II-XII intact Psychiatric exam: Present: normal affect, normal mood Course Vital Signs 08/03/22 12:53 Temperature 97.8 F Pulse Rate 84 Respiratory 16 Rate Blood Pressure 134/84 O2 Sat by Pulse 100 Oximetry Medical Decision Making - Medical Decision Making This is a 41-year-old female who presents with dental pain and nausea. Patient has widespread poor dentition with multiple dental cavities eroded into the pulp. With with this and patient's report of pain I will treat for dental infection. Pain and nausea controlled. COVID-19 and influenza are not detected. Patient will be discharged with zofran, antibiotics, and Motrin 800. She is highly encouraged to establish care with a dentist. Dr. Fernandez is my attending - Lab Data Lab Results 08/03/22 08/03/22 Range/Units 14:53 14:53 Coronavirus (PCR) Not Detected (Not Detectd) Influenza Type A RNA Not Detected (Not Detectd) Influenza Type B (PCR) Not Detected (Not Detectd) Disposition Clinical Impression: Pain, dental, Nausea and vomiting Disposition: HOME SELF-CARE Condition: Good Instructions (If sedation given, give patient instructions): Acute Nausea and Vomiting (ED), Toothache (ED) Additional Instructions: Take medication as directed. It is very important to follow-up with a dentist. Follow-up with primary care provider in one to 2 days. Return to the emergency department if you experience new, concerning, or worsening symptoms. Prescriptions: Ibuprofen [Motrin] 800 mg PO Q8H 7 Days #21 tab Penicillin V Potassium [Pen Vee K] 500 mg PO QID #28 tablet Ondansetron Odt [Zofran Odt] 4 mg PO Q8HR PRN #12 tab PRN Reason: Nausea Is patient prescribed a controlled substance at d/c from ED?: No Referrals: Haim Ash MD [Primary Care Provider] - 1-2 days Time of Disposition: 15:24
== END 2022-08-03 15:34 | disposition home or self-care (01) ==
LOC: EC 12:05
DX: K08.89 Other specified disorders of teeth and supporting structures (principal); R11.2 Nausea with vomiting, unspecified; K21.9 Gastro-esophageal reflux disease without esophagitis; F17.200 Nicotine dependence, unspecified, uncomplicated; Z91.030 Bee allergy status; Z20.822 Contact with and (suspected) exposure to COVID-19
CPT/HCPCS: 87502; 87635; 96372; 99283; J1885

== ENCOUNTER 2022-08-26 09:05 | Emergency (ER) | payer OTHER ==
[2022-08-26 09:17] VITALS: RESP 18; TEMP 98.7
[2022-08-26] MEDS ORDERED: KETOROLAC 15 MG/ML 1 ML VIAL IM STA (10:39)
--- NOTE | 2022-08-26 10:41 | ED ---
General Adult HPI - General Chief complaint: Trauma Stated complaint: IHS, hip injury Time Seen by Provider: 08/26/22 09:25 Source: patient, RN notes reviewed, old records reviewed Mode of arrival: ambulatory Limitations: no limitations - History of Present Illness Initial comments: This is a 42-year-old female who presents emergency Department complaining of right inguinal pain. Patient states she was at work and turned around and walked into a beam the beam hit her in the right inguinal area. Patient complains of pain in the right inguinal area she has full range of motion of the hip however patient denies any pain distal to the patient denies any other injury. Patient denies any swelling bleeding or ecchymosis. - Related Data Home Medications Medication Instructions Recorded Confirmed Ibuprofen [Motrin Ib] 200 - 600 mg PO Q8H PRN 03/25/21 08/10/21 Acetaminophen Tab [Tylenol] 650 mg PO Q4H PRN 08/10/21 08/10/21 Dm/Acetaminophen/Doxylamine [Vicks 30 ml PO Q6H PRN 08/10/21 08/10/21 Nyquil Cold-Flu Liquid] Phenylephrine/Dm/Acetaminop/GG 20 ml PO Q4H PRN 08/10/21 08/10/21 [Mucinex Fast-Max Cold-Flu Liq] Previous Rx's Medication Instructions Recorded Albuterol Inhaler [Ventolin Hfa 2 puff INHALATION RT-TID #8 gm 08/08/21 Inhaler] Doxycycline Hyclate 100 mg PO BID 7 Days #14 tab 08/08/21 predniSONE [Deltasone] 40 mg PO DAILY 5 Days #10 tab 08/08/21 Benzonatate [Tessalon Perles] 200 mg PO Q8H PRN #15 cap 08/10/21 Amoxic-Pot Clav 875-125Mg 1 tab PO Q12HR #20 tablet 09/07/21 [Augmentin 875-125] Ibuprofen [Motrin] 800 mg PO Q8H 7 Days #21 tab 08/03/22 Ondansetron Odt [Zofran Odt] 4 mg PO Q8HR PRN #12 tab 08/03/22 Penicillin V Potassium [Pen Vee K] 500 mg PO QID #28 tablet 08/03/22 Ketorolac [Toradol] 10 mg PO Q6HR #15 tab 08/26/22 Allergies Allergy/AdvReac Type Severity Reaction Status Date / Time venom-honey bee Allergy Anaphylaxis Verified 08/26/22 09:17 [bee venom (honey bee)] Review of Systems ROS Statement: Those systems with pertinent positive or pertinent negative responses have been documented in the HPI. ROS Other: All systems not noted in ROS Statement are negative. Past Medical History Past Medical History: GERD/Reflux Additional Past Medical History / Comment(s): Scoliosis, hiatal hernia, gastritis, freq UTI. Shortness of breath for 6 months, no testing but trying to quit smoking. c/o vomiting, diarrhea on/off for 5 years. History of Any Multi-Drug Resistant Organisms: None Reported Past Surgical History: Appendectomy, Cholecystectomy, Hernia Repair, Tubal Ligation Additional Past Surgical History / Comment(s): D&C, abd hernia Past Anesthesia/Blood Transfusion Reactions: No Reported Reaction Past Psychological History: Anxiety, Bipolar, Depression Smoking Status: Current every day smoker Past Alcohol Use History: None Reported Past Drug Use History: None Reported - Past Family History Mother Family Medical History: Cancer Additional Family Medical History / Comment(s): lymphoma General Exam - General Exam Comments Initial Comments: GENERAL Patient is well-developed and well-nourished. Patient is in mild distress. EYES Patient's pupils are equal and round. Extraocular motion is intact SKIN Unremarkable NEURO The patient is alert and oriented 3 PYSCH Patient has normal interpersonal interactions. MUSCULOSKELETAL Patient's full range motion of the right hip however when you palpate in the right inguinal area it is tender. Patient also has some tenderness on external rotation. Patient has no ecchymosis bleeding or swelling. Patient has distal pulses. Limitations: no limitations Course Vital Signs 08/26/22 09:12 Temperature 98.7 F Pulse Rate 75 Respiratory 18 Rate Blood Pressure 130/64 O2 Sat by Pulse 100 Oximetry Medical Decision Making - Medical Decision Making Hip and pelvis x-ray are negative. Patient received Toradol and it didn't improve her pain. Disposition Clinical Impression: Contusion, hip Disposition: HOME SELF-CARE Condition: Good Instructions (If sedation given, give patient instructions): Contusion in Adults (ED) Prescriptions: Ketorolac [Toradol] 10 mg PO Q6HR #15 tab Is patient prescribed a controlled substance at d/c from ED?: No Referrals: Haim Ash MD [Primary Care Provider] - 1-2 days Time of Disposition: 12:34
--- NOTE | 2022-08-26 11:12 | XR ---
EXAMINATION TYPE: XR Hip RT and AP Pelvis DATE OF EXAM: 08/26/2022 COMPARISON: 12/09/2019 HISTORY: Pain TECHNIQUE: A single AP view of the pelvis is obtained. Two views of the right hip are obtained. FINDINGS: There is no acute fracture/dislocation evident in the pelvis. The hip and sacroiliac join ts appear symmetric and unremarkable. The overlying soft tissue appears unremarkable. Postsurgical changes pelvis. Sclerosis involving both proximal femur are likely related to bone islan d. There is stable increased density along the right L4-L5 paraspinal region. Hypertrophic spurring a long the lower lumbar spine. IMPRESSION: There is no acute fracture or dislocation in the pelvis or right hip.
[2022-08-26 12:53] VITALS: BP 128/64; PULSE 72
== END 2022-08-26 12:40 | disposition home or self-care (01) ==
LOC: EC 09:05
DX: S70.01XA Contusion of right hip, initial encounter (principal); F17.200 Nicotine dependence, unspecified, uncomplicated; Z91.030 Bee allergy status; W22.8XXA Striking against or struck by other objects, initial encounter; Y99.0 Civilian activity done for income or pay
CPT/HCPCS: 73502; 99284; 96372; J1885

== ENCOUNTER 2022-09-03 09:41 | Emergency (ER) | payer OTHER ==
[2022-09-03 09:45] VITALS: RESP 16; TEMP 97.5
[2022-09-03] MEDS ORDERED: KETOROLAC 15 MG/ML 1 ML VIAL IVP STA (10:41)
[2022-09-03] MEDS ORDERED: METOCLOPRAMIDE 5 MG/ML 2 ML VIAL IVP STA (10:41)
[2022-09-03] MEDS ORDERED: diphenhydrAMINE 50 MG/ML 1 ML VIAL IVP STA (10:41)
--- NOTE | 2022-09-03 11:15 | ED ---
Headache HPI - General Chief Complaint: Headache Stated Complaint: migraine Time Seen by Provider: 09/03/22 10:36 Mode of arrival: ambulatory Limitations: no limitations - History of Present Illness Initial Comments: 42 year-old female patient presents for evaluation of migraine headache. States headache started around midnight. She took a few doses of tylenol and motrin without relief of the pain. She has tried excedrin in the past without relief. States she did try going to work today but the headache was too bad so she had to leave. States it is left temporal and around her left eye. She reports mild dizziness, some light sensitivity, and nausea. She has not vomiting. She has had similar headache in the past. This is not the worst headache of her life. Does have an appointment in a month to evaluate her headaches. Denies any recent illness, fever, or chills. Denies any recent head injury. Denies chance of , has had tubal ligation, and period just finished. - Related Data Home Medications Medication Instructions Recorded Confirmed Ibuprofen [Motrin Ib] 200 - 600 mg PO Q8H PRN 03/25/21 08/10/21 Acetaminophen Tab [Tylenol] 650 mg PO Q4H PRN 08/10/21 08/10/21 Dm/Acetaminophen/Doxylamine [Vicks 30 ml PO Q6H PRN 08/10/21 08/10/21 Nyquil Cold-Flu Liquid] Phenylephrine/Dm/Acetaminop/GG 20 ml PO Q4H PRN 08/10/21 08/10/21 [Mucinex Fast-Max Cold-Flu Liq] Previous Rx's Medication Instructions Recorded Albuterol Inhaler [Ventolin Hfa 2 puff INHALATION RT-TID #8 gm 08/08/21 Inhaler] Doxycycline Hyclate 100 mg PO BID 7 Days #14 tab 08/08/21 predniSONE [Deltasone] 40 mg PO DAILY 5 Days #10 tab 08/08/21 Benzonatate [Tessalon Perles] 200 mg PO Q8H PRN #15 cap 08/10/21 Amoxic-Pot Clav 875-125Mg 1 tab PO Q12HR #20 tablet 09/07/21 [Augmentin 875-125] Ibuprofen [Motrin] 800 mg PO Q8H 7 Days #21 tab 08/03/22 Ondansetron Odt [Zofran Odt] 4 mg PO Q8HR PRN #12 tab 08/03/22 Penicillin V Potassium [Pen Vee K] 500 mg PO QID #28 tablet 08/03/22 Ketorolac [Toradol] 10 mg PO Q6HR #15 tab 08/26/22 Allergies Allergy/AdvReac Type Severity Reaction Status Date / Time venom-honey bee Allergy Anaphylaxis Verified 09/03/22 09:44 [bee venom (honey bee)] Review of Systems ROS Statement: Those systems with pertinent positive or pertinent negative responses have been documented in the HPI. ROS Other: All systems not noted in ROS Statement are negative. Past Medical History Past Medical History: GERD/Reflux Additional Past Medical History / Comment(s): Scoliosis, hiatal hernia, ga stritis, freq UTI. Shortness of breath for 6 months, no testing but trying to quit smoking. c/o vomiting, diarrhea on/off for 5 years. History of Any Multi-Drug Resistant Organisms: None Reported Past Surgical History: Appendectomy, Cholecystectomy, Hernia Repair, Tubal Ligation Additional Past Surgical History / Comment(s): D&C, abd hernia Past Anesthesia/Blood Transfusion Reactions: No Reported Reaction Past Psychological History: Anxiety, Bipolar, Depression Smoking Status: Current every day smoker Past Alcohol Use History: None Reported Past Drug Use History: None Reported - Past Family History Mother Family Medical History: Cancer Additional Family Medical History / Comment(s): lymphoma General Exam Limitations: no limitations General appearance: alert, in no apparent distress, other (This is a well- developed, well-nourished adult female in no acute distress.) Eye exam: Present: normal appearance, PERRL, EOMI. Absent: scleral icterus, conjunctival injection, nystagmus, periorbital swelling ENT exam: Present: normal exam, normal oropharynx, mucous membranes moist Respiratory exam: Present: normal lung sounds bilaterally. Absent: respiratory distress, wheezes, rales, rhonchi, stridor Cardiovascular Exam: Present: regular rate, normal rhythm, normal heart sounds. Absent: systolic murmur, diastolic murmur, rubs, gallop, clicks GI/Abdominal exam: Present: soft, normal bowel sounds. Absent: distended, tenderness, guarding, rebound, rigid Neurological exam: Present: alert, oriented X3, CN II-XII intact Expanded Speech: Present: fluid speech Cranial nerves: EOM's Intact: Normal Motor strength exam: RUE: 5, LUE: 5, RLE: 5, LLE: 5 Eye Response: (4) open spontaneously Motor Response: (6) obeys commands Verbal Response: (5) oriented Psychiatric exam: Present: normal affect, normal mood Skin exam: Present: warm, dry, intact, normal color. Absent: rash Course Vital Signs 09/03/22 09/03/22 09:44 11:50 Temperature 97.5 F L Pulse Rate 82 Respiratory 16 16 Rate Blood Pressure 129/75 O2 Sat by Pulse 100 Oximetry Medical Decision Making - Medical Decision Making 42-year-old female patient presents to the emergency department today reporting migraine headache. Physical examination is unremarkable she is neurologically intact with no focal deficits. Migraines are typical for her usual headache that she's been getting over the last month. She does have follow-up outpatient with neurology to evaluate her headaches. She is given medication here, all symptoms resolved. She be discharged follow-up as planned. Return parameters were discussed in detail. She verbalizes understanding and agrees with this plan. My attending is Dr. Jin. Disposition Clinical Impression: Migraine headache Disposition: HOME SELF-CARE Condition: Good Instructions (If sedation given, give patient instructions): Migraine Headache (ED) Additional Instructions: Increase fluids. Rest. Follow-up through primary care physician or specialist as you have planned. Return for any new, worsening, or concerning symptoms. Is patient prescribed a controlled substance at d/c from ED?: No Referrals: Haim Ash MD [Primary Care Provider] - 1-2 days Time of Disposition: 12:29
[2022-09-03 13:31] VITALS: BP 138/87; PULSE 74
== END 2022-09-03 13:25 | disposition home or self-care (01) ==
LOC: EC 09:41
DX: G43.909 Migraine, unspecified, not intractable, without status migrainosus (principal); F17.200 Nicotine dependence, unspecified, uncomplicated; Z91.030 Bee allergy status
CPT/HCPCS: 96374; 96375; 99283; J1200; J2765; J1885

== ENCOUNTER 2022-09-06 00:22 | Emergency (ER) | payer OTHER ==
[2022-09-06 00:25] VITALS: BP 145/87; PULSE 81; RESP 18; TEMP 98.2
[2022-09-06] MEDS ORDERED: KETOROLAC 15 MG/ML 1 ML VIAL IVP STA (02:02)
[2022-09-06] MEDS ORDERED: diphenhydrAMINE 50 MG/ML 1 ML VIAL IVP STA (02:02)
[2022-09-06] MEDS ORDERED: METOCLOPRAMIDE 5 MG/ML 2 ML VIAL IVP STA (02:02)
[2022-09-06] MEDS ORDERED: SODIUM CHLORIDE 0.9% 1,000 ML IV STA (02:02)
--- NOTE | 2022-09-06 02:09 | ED ---
Headache HPI - General Chief Complaint: Headache Stated Complaint: headache Time Seen by Provider: 09/06/22 01:52 Source: RN notes reviewed Mode of arrival: ambulatory Limitations: no limitations - History of Present Illness Initial Comments: Patient presents to the emergency department with recurrent headache. Patient states she was seen here on Monday after the headache started gradually on Monday. Patient does have a history of headaches but states that this is lasting longer than usual. Patient states when she was released on Monday she had adequate relief but the headache never went away completely. Patient has an upcoming appointment with her regular physician. She has had headaches for quite some time which have previously been controlled with [id number] medications. Patient states that she came one other time to the emergency department for headaches several months ago. no fever or chills, MILD photophobia, no changes in vision or hearing, no sore throat or difficulty with speech, no neck pain, no chest pain or shortness of breath, no abdominal pain, no vomiting, no changes in urination or bowel movements, no numbness or tingling, no extremity pain, no skin rashes or lesions. Past medical, surgical, social, and family history reviewed. MD Complaint: headache Onset/Timin -: days(s) Onset Description: gradual Location: frontal, temporal (Right) Severity: severe Severity scale (1-10): 9 Quality: aching, throbbing Consistency: constant Improves With: medication Worsens With: light Context: occurred at rest Associated Symptoms: nausea, photophobia Treatments Prior to Arrival: Acetaminophen - Related Data On Hormonal Control: No Home Medications Medication Instructions Recorded Confirmed Ibuprofen [Motrin Ib] 200 - 600 mg PO Q8H PRN 03/25/21 08/10/21 Acetaminophen Tab [Tylenol] 650 mg PO Q4H PRN 08/10/21 08/10/21 Dm/Acetaminophen/Doxylamine [Vicks 30 ml PO Q6H PRN 08/10/21 08/10/21 Nyquil Cold-Flu Liquid] Phenylephrine/Dm/Acetaminop/GG 20 ml PO Q4H PRN 08/10/21 08/10/21 [Mucinex Fast-Max Cold-Flu Liq] Previous Rx's Medication Instructions Recorded Albuterol Inhaler [Ventolin Hfa 2 puff INHALATION RT-TID #8 gm 08/08/21 Inhaler] Doxycycline Hyclate 100 mg PO BID 7 Days #14 tab 08/08/21 predniSONE [Deltasone] 40 mg PO DAILY 5 Days #10 tab 08/08/21 Benzonatate [Tessalon Perles] 200 mg PO Q8H PRN #15 cap 08/10/21 Amoxic-Pot Clav 875-125Mg 1 tab PO Q12HR #20 tablet 09/07/21 [Augmentin 875-125] Ibuprofen [Motrin] 800 mg PO Q8H 7 Days #21 tab 08/03/22 Ondansetron Odt [Zofran Odt] 4 mg PO Q8HR PRN #12 tab 08/03/22 Penicillin V Potassium [Pen Vee K] 500 mg PO QID #28 tablet 08/03/22 Ketorolac [Toradol] 10 mg PO Q6HR #15 tab 08/26/22 Allergies Allergy/AdvReac Type Severity Reaction Status Date / Time venom-honey bee Allergy Anaphylaxis Verified 09/06/22 00:25 [bee venom (honey bee)] Review of Systems ROS Statement: Those systems with pertinent positive or pertinent negative responses have been documented in the HPI. ROS Other: All systems not noted in ROS Statement are negative. Past Medical History Past Medical History: GERD/Reflux Additional Past Medical History / Comment(s): Scoliosis, hiatal hernia, gastritis, freq UTI. Shortness of breath for 6 months, no testing but trying to quit smoking. c/o vomiting, diarrhea on/off for 5 years. History of Any Multi-Drug Resistant Organisms: None Reported Past Surgical History: Appendectomy, Cholecystectomy, Hernia Repair, Tubal Liga tion Additional Past Surgical History / Comment(s): D&C, abd hernia Past Anesthesia/Blood Transfusion Reactions: No Reported Reaction Past Psychological History: Anxiety, Bipolar, Depression Smoking Status: Current every day smoker Past Alcohol Use History: Occasional Past Drug Use History: None Reported - Past Family History Mother Family Medical History: Cancer Additional Family Medical History / Comment(s): lymphoma General Exam - General Exam Comments Initial Comments: Does not appear to be ill or toxic. Capillary refill less than 2 seconds. Normal color. No mottling. Cranial nerves II through XII grossly intact. Limitations: no limitations General appearance: alert, in no apparent distress, in distress (Mild distress) Head exam: Present: atraumatic, normocephalic, normal inspection Eye exam: Present: normal appearance, PERRL, EOMI. Absent: scleral icterus, conjunctival injection, periorbital swelling ENT exam: Present: normal exam, normal oropharynx, mucous membranes moist, TM's normal bilaterally, normal external ear exam. Absent: mucous membranes dry Neck exam: Present: normal inspection, full ROM, other (Negative Brudzinski's and Kernig's). Absent: tenderness, meningismus, lymphadenopathy, thyromegaly Respiratory exam: Present: normal lung sounds bilaterally. Absent: respiratory distress, wheezes, rales, rhonchi, stridor, chest wall tenderness, accessory muscle use, decreased breath sounds, prolonged expiratory Cardiovascular Exam: Present: regular rate, normal rhythm, normal heart sounds. Absent: systolic murmur, diastolic murmur, rubs, gallop, clicks GI/Abdominal exam: Present: soft, normal bowel sounds. Absent: distended, tende rness, guarding, rebound, rigid Extremities exam: Present: normal inspection, full ROM, normal capillary refill. Absent: tenderness, pedal edema, joint swelling, calf tenderness Back exam: Present: normal inspection Neurological exam: Present: alert, oriented X3, CN II-XII intact, normal gait, reflexes normal. Absent: altered, abnormal gait, motor sensory deficit Psychiatric exam: Present: normal affect, normal mood Skin exam: Present: warm, dry, intact, normal color. Absent: rash Course Vital Signs 09/06/22 00:24 Temperature 98.2 F Pulse Rate 81 Respiratory 18 Rate Blood Pressure 145/87 O2 Sat by Pulse 99 Oximetry - Reevaluation(s) Reevaluation #1: 09/06/22 03:37 Patient reevaluated. Patient's pain reduced from 9 to 5 according to her subjective scale. Dexamethasone 10 mg IV push and Depakote 500 mg IV over 20 minutes ordered. Plan for reevaluation and likely discharge. Reevaluation #2: 09/06/22 04:05 Medical record is reviewed Symptoms are improved here in the emergency department Patient is informed of results and questions answered Patient in no distress Medical Decision Making - Medical Decision Making Patient's second visit for a headache which started gradually. Patient was improved after he medicated here on Monday. Headache never went away completely. Patient does have a history of headaches although this one is lasting longer than usual. No focal neurologic deficits. No gait disturbance. No fever. No neck stiffness. Negative Brudzinski's and Kernig's test. We'll treat with headache cocktail. Basic laboratory work. IV hydration. We'll add on a COVID-19 test. Headache not consistent with thunderclap headache. Doesn't appear to be concerning for acute intracranial pathology. We'll have patient follow-up with neurology for reevaluation for more frequent headaches. I do not believe the patient requires any imaging at this time as she is neurologically intact. The case was discussed in detail with ED attending physician. Presentation, findings, treatment plan discussed in detail. Impression physician Dr. Lopez - Lab Data Result diagrams: 09/06/22 02:24 09/06/22 02:24 Lab Results 09/06/22 09/06/22 09/06/22 Range/Units 02:24 02:24 02:24 WBC 8.9 (3.8-10.6) k/uL RBC 4.22 (3.80-5.40) m/uL Hgb 13.4 (11.4-16.0) gm/dL Hct 38.9 (34.0-46.0) % MCV 92.0 (80.0-100.0) fL MCH 31.7 (25.0-35.0) pg MCHC 34.4 (31.0-37.0) g/dL RDW 12.3 (11.5-15.5) % Plt Count 261 (150-450) k/uL MPV 9.0 Neutrophils % 63 % Lymphocytes % 28 % Monocytes % 5 % Eosinophils % 3 % Basophils % 1 % Neutrophils # 5.6 (1.3-7.7) k/uL Lymphocytes # 2.5 (1.0-4.8) k/uL Monocytes # 0.4 (0-1.0) k/uL Eosinophils # 0.2 (0-0.7) k/uL Basophils # 0.1 (0-0.2) k/uL Sodium 139 (137-145) mmol/L Potassium 3.6 (3.5-5.1) mmol/L Chloride 107 (98-107) mmol/L Carbon Dioxide 24 (22-30) mmol/L Anion Gap 8 mmol/L BUN 5 L (7-17) mg/dL Creatinine 0.71 (0.52-1.04) mg/dL Est GFR (CKD-EPI)AfAm >90 (>60 ml/min/1.73 sqM) Est GFR (CKD-EPI)NonAf >90 (>60 ml/min/1.73 sqM) Glucose 95 (74-99) mg/dL Calcium 8.6 (8.4-10.2) mg/dL Magnesium 1.9 (1.6-2.3) mg/dL Coronavirus (PCR) Not Detected (Not Detectd) Disposition Clinical Impression: Acute headache Disposition: HOME SELF-CARE Condition: Stable Instructions (If sedation given, give patient instructions): Acute Headache (ED) Additional Instructions: Call at 8 AM to schedule an appointment with the neurologist for follow-up. Follow-up with your regular physician as directed. Return to the ER immediately if any symptoms worsen, new symptoms arise, or any other problems develop. Is patient prescribed a controlled substance at d/c from ED?: No Referrals: Jesús Shi MD [STAFF PHYSICIAN] - 09/08/22
[2022-09-06 02:35] LABS: Basophils # (A) 0.1 k/uL (0-0.2); Basophils % (A) 1 %; Eosinophils # (A) 0.2 k/uL (0-0.7); Eosinophils % (A) 3 %; HCT 38.9 % (34.0-46.0); HGB 13.4 gm/dL (11.4-16.0); Lymphocytes # (A) 2.5 k/uL (1.0-4.8); Lymphocytes % (A) 28 %; MCH 31.7 pg (25.0-35.0); MCHC 34.4 g/dL (31.0-37.0); Monocytes # (A) 0.4 k/uL (0-1.0); Monocytes % (A) 5 %; Neutrophils # (A) 5.6 k/uL (1.3-7.7); Neutrophils % (A) 63 %; Platelet Count 261 k/uL (150-450); RBC 4.22 m/uL (3.80-5.40); RDW 12.3 % (11.5-15.5); WBC 8.9 k/uL (3.8-10.6)
[2022-09-06 02:46] LABS: African American GFR (CKD) >90 (>60 ml/min/1.73 sqM); Anion Gap 8 mmol/L; Blood Urea Nitrogen 5 mg/dL (7-17); Calcium 8.6 mg/dL (8.4-10.2); Carbon Dioxide 24 mmol/L (22-30); Chloride 107 mmol/L (98-107); Glucose 95 mg/dL (74-99); Magnesium 1.9 mg/dL (1.6-2.3); Non-African American GFR(CKD) >90 (>60 ml/min/1.73 sqM); Potassium 3.6 mmol/L (3.5-5.1); Sodium 139 mmol/L (137-145)
[2022-09-06] MEDS ORDERED: VALPROATE SODIUM 500 MG in SODIUM CHLORIDE 0.9% 100 ML IVPB STA (03:36)
[2022-09-06] MEDS ORDERED: DEXAMETHASONE SOD PHOSPHATE 10 MG/ML 1 ML VIAL IVP STA (03:36)
[2022-09-06] MEDS ORDERED: MAGNESIUM SULFATE-D5W PMX 1 GM in DEXTROSE/WATER 1 100ML.BAG IVPB ONE (03:44)
== END 2022-09-06 04:44 | disposition home or self-care (01) ==
LOC: EC 00:22
DX: R51.9 Headache, unspecified (principal); K21.9 Gastro-esophageal reflux disease without esophagitis; F41.9 Anxiety disorder, unspecified; F31.9 Bipolar disorder, unspecified; F17.200 Nicotine dependence, unspecified, uncomplicated; Z91.030 Bee allergy status; Z79.51 Long term (current) use of inhaled steroids
CPT/HCPCS: 36415; 80048; 83735; 85025; 87635; 99284; 96375 ×4; 96361; 96365; J1200; J1100; J2765; J3475; J1885

== ENCOUNTER → 2022-10-18 | Outpatient (CLI) | payer OTHER ==
--- NOTE | 2022-10-19 08:12 | US ---
EXAMINATION TYPE: US pelvic complete DATE OF EXAM: 10/18/2022 COMPARISON: US CLINICAL HISTORY: R10.2 PELVIC PAIN. Dull pelvic pressure x couple months. Hx tubal ligation, D and C . . TECHNIQUE: Transabdominal (TA). Transabdominal sonographic images of the pelvis were acquired. Date of LMP: Unknown. EXAM MEASUREMENTS: Uterus: 9.9 x 6.5 x 4.5 cm Endometrial Stripe: 1.08 cm Right Ovary: 3.5 x 2.5 x 2.0 cm Left Ovary: 3.6 x 2.5 x 1.9 cm 1. Uterus: Anteverted Appearance of nabothian cyst in cervix. 2. Endometrium: 1.08 cm. 3. Right Ovary: Appears wnl 4. Left Ovary: Subcentimeter anechoic area seen. 5. Bilateral Adnexa: Appear wnl 6. Posterior cul-de-sac: Appears wnl IMPRESSION: No significant abnormality appreciated.
== END | disposition home or self-care (01) ==
LOC: RADUSWWP 16:20
PROVIDERS: ATTEND Pediatrics
DX: R10.2 Pelvic and perineal pain (principal); Z98.51 Tubal ligation status
CPT/HCPCS: 76856

== ENCOUNTER 2023-02-12 20:03 | Emergency (ER) | payer OTHER ==
[2023-02-12 20:10] VITALS: TEMP 98.1
[2023-02-12] MEDS ORDERED: ONDANSETRON 4 MG/2 ML VIAL IVP STA (20:24)
[2023-02-12] MEDS ORDERED: SODIUM CHLORIDE 0.9% 1,000 ML IV STA (20:24)
[2023-02-12] MEDS ORDERED: METOCLOPRAMIDE 5 MG/ML 2 ML VIAL IVP STA (20:32)
[2023-02-12] MEDS ORDERED: KETOROLAC 15 MG/ML 1 ML VIAL IVP STA (20:33)
[2023-02-12 20:35] LABS: Basophils % (A) 0 %; Eosinophils # (A) 0.2 k/uL (0-0.7); Eosinophils % (A) 2 %; HCT 47.9 % (34.0-46.0); HGB 15.9 gm/dL (11.4-16.0); Lymphocytes # (A) 0.8 k/uL (1.0-4.8); Lymphocytes % (A) 8 %; MCH 30.5 pg (25.0-35.0); MCHC 33.2 g/dL (31.0-37.0); MCV 91.8 fL (80.0-100.0); Mean Platelet Volume 8.1; Monocytes # (A) 0.2 k/uL (0-1.0); Monocytes % (A) 2 %; Neutrophils # (A) 8.1 k/uL (1.3-7.7); Neutrophils % (A) 87 %; Platelet Count 264 k/uL (150-450); RBC 5.22 m/uL (3.80-5.40); RDW 12.6 % (11.5-15.5); WBC 9.4 k/uL (3.8-10.6)
[2023-02-12 20:43] LABS: Appearance,Urine Clear (Clear); Bilirubin,Urine Negative (Negative); Blood,Urine Trace (Negative); Color,Urine Yellow; Glucose,Urine (UA) Negative (Negative); Ketones,Urine 2+ (Negative); Leukocyte Esterase,Urine Negative (Negative); Mucus,Urine Few /hpf; Nitrite,Urine Negative (Negative); Protein,Urine Trace (Negative); RBC,Urine 6 /hpf (0-5); Specific Gravity,Urine 1.024 (1.001-1.035); Squamous Epithelial Cell,Urine 2 /hpf (0-4); WBC,Urine 1 /hpf (0-5)
[2023-02-12 20:46] LABS: ALT 19 U/L (4-34); AST 21 U/L (14-36); African American GFR (CKD) >90 (>60 ml/min/1.73 sqM); Albumin 4.5 g/dL (3.5-5.0); Alkaline Phosphatase 92 U/L (38-126); Anion Gap 9 mmol/L; Blood Urea Nitrogen 12 mg/dL (7-17); Calcium 9.2 mg/dL (8.4-10.2); Carbon Dioxide 23 mmol/L (22-30); Chloride 106 mmol/L (98-107); Glucose 105 mg/dL (74-99); Lipase 139 U/L (23-300); Magnesium 1.7 mg/dL (1.6-2.3); Non-African American GFR(CKD) 87 (>60 ml/min/1.73 sqM); Potassium 4.2 mmol/L (3.5-5.1); Sodium 138 mmol/L (137-145); Total Bilirubin 0.6 mg/dL (0.2-1.3); Total Protein 7.9 g/dL (6.3-8.2)
--- NOTE | 2023-02-12 21:51 | CT ---
EXAMINATION TYPE: CT abdomen pelvis w con DATE OF EXAM: 02/12/2023 COMPARISON: 06/07/2017 HISTORY: abd pain vomiting CT DLP: 904.5 mGycm Automated exposure control for dose reduction was used. CONTRAST: Performed with IV Contrast, patient injected with 100 mL of Isovue 370. Images obtained from the diaphragm to the floor the pelvis with the IV contrast. The lung bases are clear. No pleural effusion. Heart size is normal. No pericardial effusion. Liver s pleen stomach appear intact. There are clips from cholecystectomy. No pancreatic mass. The bile ducts are nondilated. There is no adrenal mass. Kidneys show satisfactory contrast opacification. No hydronephrosis. Ureter s are not dilated. No retroperitoneal adenopathy. Bladder distends smoothly. Uterus is anteverted. No inguinal hernia. No free fluid in the pelvis. There is fluid in the rectum. The lumbar vertebra appear intact. No compression fracture. There is a mild levoscoliosis. The bony p stone is intact. The hip joints are intact. Appendix not clearly seen. No sign of thickened appendix. The terminal ileum appears normal. There is no mesenteric edema. No ascites or free air. No sign of a bowel obstruction. IMPRESSION: There are some large bowel fluid down to the rectum that could relate to some diarrhea that appears n ew compared to the old exam. Otherwise negative exam. Appendix not seen.
--- NOTE | 2023-02-12 21:59 | ED ---
Nausea/Vomiting/Diarrhea HPI - General Chief complaint: Nausea/Vomiting/Diarrhea Stated complaint: Vomiting Time Seen by Provider: 02/12/23 20:18 Source: patient Mode of arrival: wheelchair Limitations: no limitations - History of Present Illness Initial comments: Patient is a 42-year-old female who presents to the emergency department with a chief complaint of vomiting. Patient has history of chronic abdominal pain with vomiting. She states she has had several scopes which are normal. She follows with Dr. Lewis. Patient reports generalized abdominal pain with several episodes of vomiting since yesterday. Also had 2-3 episodes of diarrhea, non bloody. She denies fever, chills, constipation. Denies cold-like symptoms. Denies chest pain and shortness of breath. Patient does have history of gastritis and frequent UTIs. She had a recent cystoscope a couple days ago. She denies any urinary symptoms currently. She has surgical history of appendectomy, cholecystectomy, hernia repair, D&C, tubal ligation - Related Data Home Medications Medication Instructions Recorded Confirmed Ibuprofen [Motrin Ib] 200 - 600 mg PO Q8H PRN 03/25/21 08/10/21 Acetaminophen Tab [Tylenol] 650 mg PO Q4H PRN 08/10/21 08/10/21 Dm/Acetaminophen/Doxylamine [Vicks 30 ml PO Q6H PRN 08/10/21 08/10/21 Nyquil Cold-Flu Liquid] Phenylephrine/Dm/Acetaminop/GG 20 ml PO Q4H PRN 08/10/21 08/10/21 [Mucinex Fast-Max Cold-Flu Liq] Previous Rx's Medication Instructions Recorded Albuterol Inhaler [Ventolin Hfa 2 puff INHALATION RT-TID #8 gm 08/08/21 Inhaler] Doxycycline Hyclate 100 mg PO BID 7 Days #14 tab 08/08/21 predniSONE [Deltasone] 40 mg PO DAILY 5 Days #10 tab 08/08/21 Benzonatate [Tessalon Perles] 200 mg PO Q8H PRN #15 cap 08/10/21 Amoxic-Pot Clav 875-125Mg 1 tab PO Q12HR #20 tablet 09/07/21 [Augmentin 875-125] Ibuprofen [Motrin] 800 mg PO Q8H 7 Days #21 tab 08/03/22 Ondansetron Odt [Zofran Odt] 4 mg PO Q8HR PRN #12 tab 08/03/22 Penicillin V Potassium [Pen Vee K] 500 mg PO QID #28 tablet 08/03/22 Ketorolac [Toradol] 10 mg PO Q6HR #15 tab 08/26/22 Ibuprofen [Motrin] 800 mg PO Q8HR PRN #30 tab 02/12/23 Metoclopramide [Reglan] 10 mg PO TID PRN #15 tab 02/12/23 Allergies Allergy/AdvReac Type Severity Reaction Status Date / Time venom-honey bee Allergy Anaphylaxis Verified 02/12/23 20:10 [bee venom (honey bee)] Review of Systems ROS Statement: Those systems with pertinent positive or pertinent negative responses have been documented in the HPI. ROS Other: All systems not noted in ROS Statement are negative. Past Medical History Past Medical History: GERD/Reflux Additional Past Medical History / Comment(s): Scoliosis, hiatal hernia, gastritis, freq UTI. Shortness of breath for 6 months, no testing but trying to quit smoking. c/o vomiting, diarrhea on/off for 5 years. History of Any Multi-Drug Resistant Organisms: None Reported Past Surgical History: Appendectomy, Cholecystectomy, Hernia Repair, Tubal Ligation Additional Past Surgical History / Comment(s): D&C, abd hernia Past Anesthesia/Blood Transfusion Reactions: No Reported Reaction Past Psychological History: Anxiety, Bipolar, Depression Smoking Status: Current every day smoker Past Alcohol Use History: Occasional Past Drug Use History: None Reported - Past Family History Mother Family Medical History: Cancer Additional Family Medical History / Comment(s): lymphoma General Exam Limitations: no limitations General appearance: alert, in no apparent distress Head exam: Present: atraumatic, normocephalic, normal inspection Respiratory exam: Present: normal lung sounds bilaterally. Absent: respiratory distress, wheezes, rales, rhonchi, stridor Cardiovascular Exam: Present: regular rate, normal rhythm, normal heart sounds. Absent: systolic murmur, diastolic murmur, rubs, gallop, clicks GI/Abdominal exam: Present: soft, normal bowel sounds. Absent: distended, tenderness, guarding, rebound, rigid Neurological exam: Present: alert, oriented X3, CN II-XII intact Psychiatric exam: Present: normal affect, normal mood Skin exam: Present: warm, dry, intact, normal color. Absent: rash Course Vital Signs 02/12/23 02/12/23 20:07 22:13 Temperature 98.1 F 98.1 F Pulse Rate 120 H 92 Respiratory 20 18 Rate Blood Pressure 119/86 126/78 O2 Sat by Pulse 99 99 Oximetry Medical Decision Making - Medical Decision Making Was pt. sent in by a medical professional or institution (, PA, TRUCK SERVICE MANAGER, urgent care, hospital, or [facility]...) When possible be specific @ -[No] Did you speak to anyone other than the patient for history (EMS, parent, family, police, friend...)? What history was obtained from this source @ -[No] Did you review nursing and triage notes (agree or disagree)? Why? @ -[I reviewed and agree with nursing and triage notes] Were old charts reviewed (outside hosp., previous admission, EMS record, old EKG, old radiological studies, urgent care reports/EKG's, [facility] records)? Report findings @ -[No old charts were reviewed] Differential Diagnosis (chest pain, altered mental status, abdominal pain women, abdominal pain men, vaginal bleeding, weakness, fever, dyspnea, syncope, headache, dizziness, GI bleed, back pain, seizure, CVA, palpatations, mental health)? @ -Differential Abdominal Pain Women: Appendicitis, Cholecystitis, diverticulosis, ischemic bowel, pancreatitis, hepatitis, UTI, gastroenteritis, AAA, incarcerated hernia, bowel obstruction, constipation, inflammatory bowel, hepatitis, peptic ulcer disease, splenic infarction, perforated viscus, vulvitis, ovarian torsion, PID, kidney stone, placenta abruption, this is not meant to be an all-inclusive list EKG interpreted by me (3pts min.). @ -[As above] X-rays interpreted by me (1pt min.). @ -[None done] CT interpreted by me (1pt min.). @ -Yes, CT of the abdomen and pelvis is negative for acute process U/S interpreted by me (1pt. min.). @ -[None done] What testing was considered but not performed or refused? (CT, X-rays, U/S, labs)? Why? @ -[None] What meds were considered but not given or refused? Why? @ -[None] Did you discuss the management of the patient with other professionals (professionals i.e. , PA, TRUCK SERVICE MANAGER, lab, RT, psych nurse, aids social worker, office messenger helper, teacher, community service officer coordinator, director of casework services)? Give summary @ -[No] Was smoking cessation discussed for >3mins.? @ -[No] Was critical care preformed (if so, how long)? @ -[No] Were there social determinants of health that impacted care today? How? (H omelessness, low income, unemployed, alcoholism, drug addiction, transportation, low edu. Level, literacy, decrease access to med. care, group home, rehab)? @ -[No] Was there de-escalation of care discussed even if they declined (Discuss DNR or withdrawal of care, Hospice)? DNR status @ -[No] What co-morbidities impacted this encounter? (DM, HTN, Smoking, COPD, CAD, Cancer, CVA, ARF, Chemo, Hep., AIDS, mental health diagnosis, sleep apnea, morbid obesity)? @ -[None] Was patient admitted / discharged? Hospital course, mention meds given and route, prescriptions, significant lab abnormalities, going to OR and other pertinent info. @ -Patient presenting for evaluation of vomiting. Laboratory studies obtained. There is no leukocytosis. Influenza was not detected. Urinalysis does reveal dehydration and trace blood and however patient had recent cystoscope. CT of the abdomen and pelvis negative for acute process. Patient treated in the emergency department with improvement of symptoms. At this time there are no diagnostic studies to explain patient's symptoms. Patient in stable medical condition for discharge she will follow-up with her GI specialist. Undiagnosed new problem with uncertain prognosis? @ -[No] Drug Therapy requiring intensive monitoring for toxicity (Heparin, Nitro, Insulin, Cardizem)? @ -[No] Were any procedures done? @ -[No] Diagnosis/symptom? @ -abdominal pain, vomiting Acute, or Chronic, or Acute on Chronic? @ -acute Uncomplicated (without systemic symptoms) or Complicated (systemic symptoms)? @ -uncomplicated Side effects of treatment? @ -[No] Exacerbation, Progression, or Severe Exacerbation? @ -[No] Poses a threat to life or bodily function? How? (Chest pain, USA, AR, pneumonia, PE, COPD, DKA, ARF, appy, cholecystitis, CVA, Diverticulitis, Homicidal, Suicidal, threat to staff... and all critical care pts) @ -[No] Dr. Awad is my attending - Lab Data Result diagrams: 02/12/23 20:25 02/12/23 20:25 Lab Results 02/12/23 02/12/23 02/12/23 Range/Units 20:15 20:25 20:25 WBC 9.4 (3.8-10.6) k/uL RBC 5.22 (3.80-5.40) m/uL Hgb 15.9 (11.4-16.0) gm/dL Hct 47.9 H (34.0-46.0) % MCV 91.8 (80.0-100.0) fL MCH 30.5 (25.0-35.0) pg MCHC 33.2 (31.0-37.0) g/dL RDW 12.6 (11.5-15.5) % Plt Count 264 (150-450) k/uL MPV 8.1 Neutrophils % 87 % Lymphocytes % 8 % Monocytes % 2 % Eosinophils % 2 % Basophils % 0 % Neutrophils # 8.1 H (1.3-7.7) k/uL Lymphocytes # 0.8 L (1.0-4.8) k/uL Monocytes # 0.2 (0-1.0) k/uL Eosinophils # 0.2 (0-0.7) k/uL Basophils # 0.0 (0-0.2) k/uL Sodium (137-145) mmol/L Potassium (3.5-5.1) mmol/L Chloride (98-107) mmol/L Carbon Dioxide (22-30) mmol/L Anion Gap mmol/L BUN (7-17) mg/dL Creatinine (0.52-1.04) mg/dL Est GFR (CKD-EPI)AfAm (>60 ml/min/1.73 sqM) Est GFR (CKD-EPI)NonAf (>60 ml/min/1.73 sqM) Glucose (74-99) mg/dL Plasma Lactic Acid Ruben 0.8 (0.7-2.0) mmol/L Calcium (8.4-10.2) mg/dL Magnesium (1.6-2.3) mg/dL Total Bilirubin (0.2-1.3) mg/dL AST (14-36) U/L ALT (4-34) U/L Alkaline Phosphatase (38-126) U/L Total Protein (6.3-8.2) g/dL Albumin (3.5-5.0) g/dL Lipase (23-300) U/L Urine Color Yellow Urine Appearance Clear (Clear) Urine pH 6.0 (5.0-8.0) Ur Specific [place] 1.024 (1.001-1.035) Urine Protein Trace H (Negative) Urine Glucose (UA) Negative (Negative) Urine Ketones 2+ H (Negative) Urine Blood Trace H (Negative) Urine Nitrite Negative (Negative) Urine Bilirubin Negative (Negative) Urine Urobilinogen 2.0 (<2.0) mg/dL Ur Leukocyte Esterase Negative (Negative) Urine RBC 6 H (0-5) /hpf Urine WBC 1 (0-5) /hpf Ur Squamous Epith Cells 2 (0-4) /hpf Urine Mucus Few H (None) /hpf Urine HCG, Qual (Not Detectd) Influenza Type A RNA (Not Detectd) Influenza Type B (PCR) (Not Detectd) 02/12/23 02/12/23 02/12/23 Range/Units 20:25 20:25 20:56 WBC (3.8-10.6) k/uL RBC (3.80-5.40) m/uL Hgb (11.4-16.0) gm/dL Hct (34.0-46.0) % MCV (80.0-100.0) fL MCH (25.0-35.0) pg MCHC (31.0-37.0) g/dL RDW (11.5-15.5) % Plt Count (150-450) k/uL MPV Neutrophils % % Lymphocytes % % Monocytes % % Eosinophils % % Basophils % % Neutrophils # (1.3-7.7) k/uL Lymphocytes # (1.0-4.8) k/uL Monocytes # (0-1.0) k/uL Eosinophils # (0-0.7) k/uL Basophils # (0-0.2) k/uL Sodium 138 (137-145) mmol/L Potassium 4.2 (3.5-5.1) mmol/L Chloride 106 (98-107) mmol/L Carbon Dioxide 23 (22-30) mmol/L Anion Gap 9 mmol/L BUN 12 (7-17) mg/dL Creatinine 0.84 (0.52-1.04) mg/dL Est GFR (CKD-EPI)AfAm >90 (>60 ml/min/1.73 sqM) Est GFR (CKD-EPI)NonAf 87 (>60 ml/min/1.73 sqM) Glucose 105 H (74-99) mg/dL Plasma Lactic Acid Ruben (0.7-2.0) mmol/L Calcium 9.2 (8.4-10.2) mg/dL Magnesium 1.7 (1.6-2.3) mg/dL Total Bilirubin 0.6 (0.2-1.3) mg/dL AST 21 (14-36) U/L ALT 19 (4-34) U/L Alkaline Phosphatase 92 (38-126) U/L Total Protein 7.9 (6.3-8.2) g/dL Albumin 4.5 (3.5-5.0) g/dL Lipase 139 (23-300) U/L Urine Color Urine Appearance (Clear) Urine pH (5.0-8.0) Ur Specific [place] (1.001-1.035) Urine Protein (Negative) Urine Glucose (UA) (Negative) Urine Ketones (Negative) Urine Blood (Negative) Urine Nitrite (Negative) Urine Bilirubin (Negative) Urine Urobilinogen (<2.0) mg/dL Ur Leukocyte Esterase (Negative) Urine RBC (0-5) /hpf Urine WBC (0-5) /hpf Ur Squamous Epith Cells (0-4) /hpf Urine Mucus (None) /hpf Urine HCG, Qual Not Detected (Not Detectd) Influenza Type A RNA Not Detected (Not Detectd) Influenza Type B (PCR) Not Detected (Not Detectd) Disposition Clinical Impression: Nausea and vomiting, Abdominal pain Disposition: HOME SELF-CARE Condition: Good Instructions (If sedation given, give patient instructions): Acute Nausea and Vomiting (ED), Abdominal Pain (ED) Additional Instructions: Take medication as directed. Follow up with primary care provider in 1-2 days. Return to the emergency department if you experience new, concerning, or worsening symptoms. Prescriptions: Ibuprofen [Motrin] 800 mg PO Q8HR PRN #30 tab PRN Reason: Pain Metoclopramide [Reglan] 10 mg PO TID PRN #15 tab PRN Reason: Nausea Is patient prescribed a controlled substance at d/c from ED?: No Referrals: Haim Ash MD [Primary Care Provider] - 1-2 days
[2023-02-12 22:15] VITALS: BP 126/78; PULSE 92; RESP 18
== END 2023-02-12 22:15 | disposition home or self-care (01) ==
LOC: EC 20:03
DX: R11.2 Nausea with vomiting, unspecified (principal); R10.84 Generalized abdominal pain; F17.200 Nicotine dependence, unspecified, uncomplicated; Z91.030 Bee allergy status; Z90.49 Acquired absence of other specified parts of digestive tract
CPT/HCPCS: 36415; 80053; 83605; 83690; 83735; 85025; 81001; 81025; 87502; 74177; 99284; 96374; 96375; 96361; J2765; J1885; Q9967

== ENCOUNTER → 2023-04-13 | Outpatient (CLI) | payer OTHER ==
[2023-04-14 02:21] LABS: Appearance,Urine Clear (Clear); Bilirubin,Urine Negative (Negative); Blood,Urine Negative (Negative); Color,Urine Yellow (Yellow); Ketones,Urine Negative (Negative); Nitrite,Urine Negative (Negative); Specific Gravity,Urine 1.015 (1.001-1.030); Urobilinogen,Urine 0.2 (0.2,1.0)
[2023-04-14 02:36] LABS: Bacteria,Urine None Seen /HPF (None Seen)
== END | disposition home or self-care (01) ==
LOC: LABWHC1 15:53
PROVIDERS: ATTEND Urology
DX: N39.0 Urinary tract infection, site not specified (principal)
CPT/HCPCS: 81001; 87086

== ENCOUNTER → 2023-04-13 | Outpatient (CLI) | payer OTHER ==
--- NOTE | 2023-04-18 07:29 | MM ---
Reason for Exam: Screening (asymptomatic). Baseline mammogram. Patient History: Menarche at age 17. First Full-Term at age 20. Last menstrual period: 03/28/2023 Risk Values: Ingrid 5 year model risk: 0.4%. NCI Lifetime model risk: 6.7%. Prior Study Comparison: Patient's first Mammogram. Tissue Density: The breast tissue is heterogeneously dense. This may lower the sensitivity of mammography. Findings: Analyzed By CAD. There is no suspicious group of microcalcifications or new suspicious mass in either breast. Overall Assessment: Negative, BI-RAD 1 Management: Screening Mammogram of both breasts in [address] [facility] will attempt to contact patient to return for supplemental views and ultrasound if indicated. Patient should continue monthly self-breast exams. A clinical breast exam by your physician is recommended on an annual basis. This exam should not preclude additional follow-up of suspicious palpable abnormalities. Note on Ingrid scores and lifetime risk: 1. A Ingrid score greater than 3% is considered moderate risk. If this is the case, consider specialist referral to assess eligibility for a risk reducing agent. 2. If overall lifetime risk for the development of breast cancer is 20% or higher, the patient may qualify for future screening with alternating mammogram and breast MRI. Electronically signed and approved by: Wu Jauregui DO
== END | disposition home or self-care (01) ==
LOC: RADMAMWWP 16:09
PROVIDERS: ATTEND Pediatrics
DX: Z12.31 Encounter for screening mammogram for malignant neoplasm of breast (principal)
CPT/HCPCS: 77063; 77067

== ENCOUNTER 2024-03-11 00:05 | Emergency (ER) | payer BC, OTHER ==
[2024-03-11 00:32] VITALS: TEMP 98.7
[2024-03-11 00:41] LABS: Basophils # (A) 0.1 k/uL (0-0.2); Basophils % (A) 1 %; Eosinophils # (A) 0.2 k/uL (0-0.7); Eosinophils % (A) 2 %; HCT 45.5 % (34.0-46.0); HGB 14.7 gm/dL (11.4-16.0); Lymphocytes # (A) 2.8 k/uL (1.0-4.8); Lymphocytes % (A) 22 %; MCH 30.5 pg (25.0-35.0); MCHC 32.2 g/dL (31.0-37.0); MCV 94.8 fL (80.0-100.0); Mean Platelet Volume 8.4; Monocytes # (A) 0.5 k/uL (0-1.0); Monocytes % (A) 4 %; Neutrophils # (A) 9.3 k/uL (1.3-7.7); Neutrophils % (A) 71 %; Platelet Count 272 k/uL (150-450); RDW 12.7 % (11.5-15.5)
[2024-03-11] MEDS: SODIUM CHLORIDE 0.9% 1,000 ML IV STA (00:47)
[2024-03-11] MEDS: FAMOTIDINE 20 MG/2 ML VIAL IV STA (00:47)
[2024-03-11] MEDS: diphenhydrAMINE 50 MG/ML 1 ML VIAL IVP STA (00:47)
[2024-03-11] MEDS: methylPREDNISolone SOD SUCCI 125 MG/2 ML VIAL IV STA (00:49)
[2024-03-11] MEDS: ONDANSETRON 4 MG/2 ML VIAL IVP STA (00:52)
[2024-03-11 00:56] LABS: ALT 19 U/L (4-34); AST 23 U/L (14-36); African American GFR (CKD) >90 (>60 ml/min/1.73 sqM); Albumin 4.2 g/dL (3.5-5.0); Alkaline Phosphatase 61 U/L (38-126); Amylase 72 U/L (30-110); Anion Gap 4 mmol/L; Blood Urea Nitrogen 17 mg/dL (7-17); Calcium 9.8 mg/dL (8.4-10.2); Carbon Dioxide 30 mmol/L (22-30); Chloride 105 mmol/L (98-107); Glucose 137 mg/dL (74-99); Lipase 144 U/L (23-300); Non-African American GFR(CKD) 89 (>60 ml/min/1.73 sqM); Potassium 3.7 mmol/L (3.5-5.1); Sodium 139 mmol/L (137-145); Total Bilirubin 0.4 mg/dL (0.2-1.3); Total Protein 7.2 g/dL (6.3-8.2)
--- NOTE | 2024-03-11 01:33 | XR ---
EXAM: XR Chest, 1 View CLINICAL HISTORY: ITS.REASON XR Reason: allergic reaction TECHNIQUE: Frontal view of the chest. COMPARISON: No relevant prior studies available. FINDINGS: Lungs: No consolidation or mass. Pleural space: No acute findings Heart: Mild cardiomegaly. Bones/joints: No acute findings. IMPRESSION: No acute cardiopulmonary process.
[2024-03-11 01:47] LABS: Appearance,Urine Clear (Clear); Bilirubin,Urine Negative (Negative); Blood,Urine Negative (Negative); Color,Urine Light Yellow; Glucose,Urine (UA) Negative (Negative); Ketones,Urine Negative (Negative); Leukocyte Esterase,Urine Negative (Negative); Nitrite,Urine Negative (Negative); Protein,Urine Negative (Negative); Specific Gravity,Urine 1.014 (1.001-1.035); Urobilinogen,Urine <2.0 mg/dL (<2.0)
--- NOTE | 2024-03-11 02:16 | ED ---
General Adult HPI - General Chief complaint: Allergic Reaction Stated complaint: Itchiness, Abdominal Pain Time Seen by Provider: 03/11/24 00:15 Source: patient, RN notes reviewed, old records reviewed Mode of arrival: ambulatory Limitations: no limitations - History of Present Illness Initial comments: Patient is a 43-year-old female with past medical history remarkable for GERD who presents emergency department complaining of possible allergic reaction. Ate a new type of oatmeal approximately 45 minutes ago. Tried to go to sleep but then began waking up with extremity itching, nausea, vomiting as well as abdominal pain. Abdominal pain is resolved. Still slightly nauseous. But still is itching. States she feels like her skin is hot. Denies any chest pain or shortness of breath. No known allergies other than to bees. Presents for further evaluation at this time. - Related Data Home Medications Medication Instructions Recorded Confirmed Ibuprofen [Motrin Ib] 200 - 600 mg PO Q8H PRN 03/25/21 08/10/21 Acetaminophen Tab [Tylenol] 650 mg PO Q4H PRN 08/10/21 08/10/21 Dm/Acetaminophen/Doxylamine [Vicks 30 ml PO Q6H PRN 08/10/21 08/10/21 Nyquil Cold-Flu Liquid] Phenylephrine/Dm/Acetaminop/GG 20 ml PO Q4H PRN 08/10/21 08/10/21 [Mucinex Fast-Max Cold-Flu Liq] Previous Rx's Medication Instructions Recorded Albuterol Inhaler [Ventolin Hfa 2 puff INHALATION RT-TID #8 gm 08/08/21 Inhaler] Doxycycline Hyclate 100 mg PO BID 7 Days #14 tab 08/08/21 predniSONE [Deltasone] 40 mg PO DAILY 5 Days #10 tab 08/08/21 Benzonatate [Tessalon Perles] 200 mg PO Q8H PRN #15 cap 08/10/21 Amoxic-Pot Clav 875-125Mg 1 tab PO Q12HR #20 tablet 09/07/21 [Augmentin 875-125] Ibuprofen [Motrin] 800 mg PO Q8H 7 Days #21 tab 08/03/22 Ondansetron Odt [Zofran Odt] 4 mg PO Q8HR PRN #12 tab 08/03/22 Penicillin V Potassium [Pen Vee K] 500 mg PO QID #28 tablet 08/03/22 Ketorolac [Toradol] 10 mg PO Q6HR #15 tab 08/26/22 Ibuprofen [Motrin] 800 mg PO Q8HR PRN #30 tab 02/12/23 Metoclopramide [Reglan] 10 mg PO TID PRN #15 tab 02/12/23 Famotidine [Pepcid] 20 mg PO DAILY 7 Days #7 tablet 03/11/24 diphenhydrAMINE [Benadryl] 25 mg PO TID PRN 7 Days #21 capsule 03/11/24 predniSONE [Deltasone] 20 mg PO DAILY 7 Days #7 tab 03/11/24 Allergies Allergy/AdvReac Type Severity Reaction Status Date / Time venom-honey bee Allergy Anaphylaxis Verified 03/11/24 00:21 [bee venom (honey bee)] Review of Systems ROS Statement: Those systems with pertinent positive or pertinent negative responses have been documented in the HPI. Review of Systems: CONST: Denies fever EYES: Denies blurry vision ENT: Denies nasal congestion C/V: Denies Chest pain RESP: Denies shortness of breath GI: Endorses nausea : Denies dysuria SKIN: Endorses pruritic skin MSK: Denies joint pain. NEURO: Denies headache ROS Other: All systems not noted in ROS Statement are negative. Past Medical History Past Medical History: GERD/Reflux Additional Past Medical History / Comment(s): Scoliosis, hiatal hernia, gastritis, freq UTI. Shortness of breath for 6 months, no testing but trying to quit smoking. c/o vomiting, diarrhea on/off for 5 years. History of Any Multi-Drug Resistant Organisms: None Reported Past Surgical History: Appendectomy, Cholecystectomy, Hernia Repair, Tubal Ligation Additional Past Surgical History / Comment(s): D&C, abd hernia Past Anesthesia/Blood Transfusion Reactions: No Reported Reaction Past Psychological History: Anxiety, Bipolar, Depression Smoking Status: Current every day smoker Past Alcohol Use History: Occasional Past Drug Use History: None Reported - Past Family History Mother Family Medical History: Cancer Additional Family Medical History / Comment(s): lymphoma General Exam - General Exam Comments Initial Comments: General: Appears in mild discomfort. HEAD: Normal with no signs of head trauma. EYES: PERRLA, EOMI, conjunctiva normal, no discharge. ENT: Hearing grossly intact, normal oropharynx. No stridor. No oropharyngeal swelling. Uvula is midline. RESPIRATORY: Clear breath sounds bilaterally. No wheezes, rales, or rhonchi. Respiratory distress. C/V: Regular rate and rhythm. S1 and S2 auscultated, no edema, peripheral pulses 2+ and intact throughout ABD: Abd is soft, nontender, nondistended EXT: Normal range of motion, no obvious deformity SKIN: Excoriations on her arms and legs from itching. No obvious wheals or rash. NEURO: Alert and oriented x 4. Limitations: no limitations Course Vital Signs 03/11/24 00:20 Temperature 98.7 F Pulse Rate 114 H Respiratory 20 Rate Blood Pressure 133/84 O2 Sat by Pulse 98 Oximetry Medical Decision Making - Medical Decision Making Was pt. sent in by a medical professional or institution (ELVIN Mitchell, STAIN REMOVER, urgent care, hospital, or half-way...) When possible be specific @ -No Did you speak to anyone other than the patient for history (EMS, parent, family, police, friend...)? What history was obtained from this source @ -No Did you review nursing and triage notes (agree or disagree)? Why? @ -I reviewed and agree with nursing and triage notes Were old charts reviewed (outside hosp., previous admission, EMS record, old EKG, old radiological studies, urgent care reports/EKG's, half-way records)? Report findings @ -Old charts reviewed Differential Diagnosis (chest pain, altered mental status, abdominal pain women, abdominal pain men, vaginal bleeding, weakness, fever, dyspnea, syncope, headache, dizziness, GI bleed, back pain, seizure, CVA, palpatations, mental health, musculoskeletal)? @ -Allergic reaction, electrolyte abnormality, anaphylaxis. This list is not all inclusive. EKG interpreted by me (3pts min.). @ -As above X-rays interpreted by me (1pt min.). @ -Chest x-ray reveals no obvious acute cardiopulmonary process. CT interpreted by me (1pt min.). @ -None done U/S interpreted by me (1pt. min.). @ -None done What testing was considered but not performed or refused? (CT, X-rays, U/S, l abs)? Why? @ -None What meds were considered but not given or refused? Why? @ -None Did you discuss the management of the patient with other professionals (professionals i.e. , PA, STAIN REMOVER, lab, RT, psych nurse, social service agency director, air pollution analyst, teacher, combat information center officer, top case assembler)? Give summary @ -No Was smoking cessation discussed for >3mins.? @ -No Was critical care preformed (if so, how long)? @ -No Were there social determinants of health that impacted care today? How? (Homelessness, low income, unemployed, alcoholism, drug addiction, transportation, low edu. Level, literacy, decrease access to med. care, [facility], rehab)? @ -No Was there de-escalation of care discussed even if they declined (Discuss DNR or withdrawal of care, Hospice)? DNR status @ -No What co-morbidities impacted this encounter? (DM, HTN, Smoking, COPD, CAD, Cancer, CVA, ARF, Chemo, Hep., AIDS, mental health diagnosis, sleep apnea, morbid obesity)? @ -None Was patient admitted / discharged? Hospital course, mention meds given and route, prescriptions, significant lab abnormalities, going to OR and other pertinent info. @ -Patient presents complaining of what seems to be an allergic reaction. Hide patient placed in trauma bay 1 as she was originally in the hallway with no telemetry. This was the only available monitor. Will obtain basic labs, EKG, chest x-ray. Patient will be symptomatically treated with IV steroids, Pepcid, Benadryl, Zofran, fluids. Patient was in agreement this plan. Vital signs are within acceptable limits. EKG shows no signs of acute ischemia. Chest x-ray unremarkable. Labs rem arkable for slight leukocytosis of 13 which is likely reactive. Remainder the workup unremarkable. On reevaluation, patient is feeling much improved. States symptoms have resolved. I discussed with her and we will continue to observe for at least 2 hours here in the department. Patient was in agreement this plan. Following observation, patient remains asymptomatic. She will be discharged enedelia at this time with prescriptions. Patient was in agreement this plan. I will provide the patient with a prescription for Benadryl, famotidine, prednisone. I instructed the patient to follow up with their PCP in the next 1-3 days.. I explained that the patient should return to the emergency department if they experience any worsening symptoms. Strict return precautions were discussed with the patient. The patient expressed understanding of these instructions. I answered all questions that the patient had. The patient was discharged home in good condition with their prescriptions and follow up information. Undiagnosed new problem with uncertain prognosis? @ -No Drug Therapy requiring intensive monitoring for toxicity (Heparin, Nitro, Insulin, Cardizem)? @ -No Were any procedures done? @ -No Diagnosis/symptom? @ -Allergic reaction Acute, or Chronic, or Acute on Chronic? @ -Acute Uncomplicated (without systemic symptoms) or Complicated (systemic symptoms)? @ -Complicated Side effects of treatment? @ -No Exacerbation, Progression, or Severe Exacerbation? @ -No Poses a threat to life or bodily function? How? (Chest pain, USA, [place], pneumonia, PE, COPD, DKA, ARF, appy, cholecystitis, CVA, Diverticulitis, Homicidal, Suicidal, threat to staff... and all critical care pts) @ -Unlikely - Lab Data Result diagrams: 03/11/24 00:23 03/11/24 00:23 Lab Results 03/11/24 03/11/24 03/11/24 Range/Units 00:23 00:23 00:23 WBC 13.0 H (3.8-10.6) k/uL RBC 4.80 (3.80-5.40) m/uL Hgb 14.7 (11.4-16.0) gm/dL Hct 45.5 (34.0-46.0) % MCV 94.8 (80.0-100.0) fL MCH 30.5 (25.0-35.0) pg MCHC 32.2 (31.0-37.0) g/dL RDW 12.7 (11.5-15.5) % Plt Count 272 (150-450) k/uL MPV 8.4 Neutrophils % 71 % Lymphocytes % 22 % Monocytes % 4 % Eosinophils % 2 % Basophils % 1 % Neutrophils # 9.3 H (1.3-7.7) k/uL Lymphocytes # 2.8 (1.0-4.8) k/uL Monocytes # 0.5 (0-1.0) k/uL Eosinophils # 0.2 (0-0.7) k/uL Basophils # 0.1 (0-0.2) k/uL Sodium 139 (137-145) mmol/L Potassium 3.7 (3.5-5.1) mmol/L Chloride 105 (98-107) mmol/L Carbon Dioxide 30 (22-30) mmol/L Anion Gap 4 mmol/L BUN 17 (7-17) mg/dL Creatinine 0.82 (0.52-1.04) mg/dL Est GFR (CKD-EPI)AfAm >90 (>60 ml/min/1.73 sqM) Est GFR (CKD-EPI)NonAf 89 (>60 ml/min/1.73 sqM) Glucose 137 H (74-99) mg/dL Plasma Lactic Acid Ruben (0.7-2.0) mmol/L Calcium 9.8 (8.4-10.2) mg/dL Total Bilirubin 0.4 (0.2-1.3) mg/dL AST 23 (14-36) U/L ALT 19 (4-34) U/L Alkaline Phosphatase 61 (38-126) U/L Total Protein 7.2 (6.3-8.2) g/dL Albumin 4.2 (3.5-5.0) g/dL Amylase 72 (30-110) U/L Lipase 144 (23-300) U/L HCG, Qual Urine Color Light Yellow Urine Appearance Clear (Clear) Urine pH 6.0 (5.0-8.0) Ur Specific [place] 1.014 (1.001-1.035) Urine Protein Negative (Negative) Urine Glucose (UA) Negative (Negative) Urine Ketones Negative (Negative) Urine Blood Negative (Negative) Urine Nitrite Negative (Negative) Urine Bilirubin Negative (Negative) Urine Urobilinogen <2.0 (<2.0) mg/dL Ur Leukocyte Esterase Negative (Negative) 03/11/24 03/11/24 Range/Units 00:23 00:44 WBC (3.8-10.6) k/uL RBC (3.80-5.40) m/uL Hgb (11.4-16.0) gm/dL Hct (34.0-46.0) % MCV (80.0-100.0) fL MCH (25.0-35.0) pg MCHC (31.0-37.0) g/dL RDW (11.5-15.5) % Plt Count (150-450) k/uL MPV Neutrophils % % Lymphocytes % % Monocytes % % Eosinophils % % Basophils % % Neutrophils # (1.3-7.7) k/uL Lymphocytes # (1.0-4.8) k/uL Monocytes # (0-1.0) k/uL Eosinophils # (0-0.7) k/uL Basophils # (0-0.2) k/uL Sodium (137-145) mmol/L Potassium (3.5-5.1) mmol/L Chloride (98-107) mmol/L Carbon Dioxide (22-30) mmol/L Anion Gap mmol/L BUN (7-17) mg/dL Creatinine (0.52-1.04) mg/dL Est GFR (CKD-EPI)AfAm (>60 ml/min/1.73 sqM) Est GFR (CKD-EPI)NonAf (>60 ml/min/1.73 sqM) Glucose (74-99) mg/dL Plasma Lactic Acid Ruben 0.8 (0.7-2.0) mmol/L Calcium (8.4-10.2) mg/dL Total Bilirubin (0.2-1.3) mg/dL AST (14-36) U/L ALT (4-34) U/L Alkaline Phosphatase (38-126) U/L Total Protein (6.3-8.2) g/dL Albumin (3.5-5.0) g/dL Amylase (30-110) U/L Lipase (23-300) U/L HCG, Qual Not Detected Urine Color Urine Appearance (Clear) Urine pH (5.0-8.0) Ur Specific [place] (1.001-1.035) Urine Protein (Negative) Urine Glucose (UA) (Negative) Urine Ketones (Negative) Urine Blood (Negative) Urine Nitrite (Negative) Urine Bilirubin (Negative) Urine Urobilinogen (<2.0) mg/dL Ur Leukocyte Esterase (Negative) - EKG Data -: EKG Interpreted by Me EKG Comments: 12-lead Electrocardiogram Interpretation Note EKG was reviewed and interpreted by myself. 12-lead ECG performed at 0042 is interpreted by me as revealing normal sinus rhythm at a rate of 79 beats per minute. [place] is normal. CT interval is 166 ms, QRS duration is 90 ms, QTc is 422 ms.. There were no ST or T wave abnormalities to suggest myocardial ischemia or injury. R wave progression across the precordium was satisfactory. By my interpretation this EKG is non-diagnostic for acute ischemia. Disposition Clinical Impression: Allergic reaction Disposition: HOME SELF-CARE Condition: Good Prescriptions: diphenhydrAMINE [Benadryl] 25 mg PO TID PRN 7 Days #21 capsule PRN Reason: Allergic Reaction predniSONE [Deltasone] 20 mg PO DAILY 7 Days #7 tab Famotidine [Pepcid] 20 mg PO DAILY 7 Days #7 tablet Is patient prescribed a controlled substance at d/c from ED?: No Referrals: Haim Ash MD [Primary Care Provider] - 1-2 days Time of Disposition: 02:16
[2024-03-11 03:31] VITALS: BP 100/61; PULSE 59; RESP 18
== END 2024-03-11 02:35 | disposition home or self-care (01) ==
LOC: EC 00:05
DX: T78.1XXA Other adverse food reactions, not elsewhere classified, initial encounter (principal); L29.9 Pruritus, unspecified; F17.200 Nicotine dependence, unspecified, uncomplicated; Z91.030 Bee allergy status
CPT/HCPCS: 36415; 93005; 80053; 82150; 83605; 83690; 85025; 81003; 84703; 71045; 99284; 96374; 96375 ×3; 96361 ×2; J1200; J2405; J3490; J2919

== ENCOUNTER → 2024-04-16 | Outpatient (CLI) | payer BC, OTHER ==
--- NOTE | 2024-04-18 11:50 | MM ---
Reason for Exam: Screening (asymptomatic). Last screening mammogram was performed 12 month(s) ago. Patient History: Menarche at age 17. First Full-Term at age 20. Last menstrual period: 04/02/2024 Risk Values: Ingrid 5 year model risk: 0.4%. NCI Lifetime model risk: 6.6%. Prior Study Comparison: 04/13/2023 Bilateral MG 3D screening mammo w/cad, [facility]. Tissue Density: The breasts are heterogeneously dense, which may obscure small masses. Findings: Analyzed By CAD. There is no suspicious group of microcalcifications or new suspicious mass in either breast. Benign appearing calcification. Unchanged from prior exam. Overall Assessment: Benign, BI-RAD 2 Management: Screening Mammogram of both breasts in 1 year. . Patient should continue monthly self-breast exams. A clinical breast exam by your physician is recommended on an annual basis. This exam should not preclude additional follow-up of suspicious palpable abnormalities. Note on Ingrid scores and lifetime risk: 1. A Ingrid score greater than 3% is considered moderate risk. If this is the case, consider specialist referral to assess eligibility for a risk reducing agent. 2. If overall lifetime risk for the development of breast cancer is 20% or higher, the patient may qualify for future screening with alternating mammogram and breast MRI. Electronically signed and approved by: Jef Velasco M.D. Radiologis
== END | disposition home or self-care (01) ==
LOC: RADMAMWWP 16:33
PROVIDERS: ATTEND Pediatrics
DX: Z12.31 Encounter for screening mammogram for malignant neoplasm of breast (principal)
CPT/HCPCS: 77063; 77067

== ENCOUNTER 2024-04-22 04:41 | Emergency (ER) | payer BC, OTHER ==
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
[2024-04-22 05:27] VITALS: BP 114/76; PULSE 86; RESP 18; TEMP 97.8
== END 2024-04-22 05:09 | disposition home or self-care (01) ==
LOC: EC 04:41
DX: S06.0XAA Concussion with loss of consciousness status unknown, initial encounter (principal); F17.200 Nicotine dependence, unspecified, uncomplicated; Z91.030 Bee allergy status; Z90.49 Acquired absence of other specified parts of digestive tract; W22.8XXA Striking against or struck by other objects, initial encounter
CPT/HCPCS: 99283

== ENCOUNTER → 2024-06-07 | Outpatient (CLI) | payer BC, OTHER ==
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
== END | disposition home or self-care (01) ==
LOC: RADXRMAIN 17:02
PROVIDERS: ATTEND Physician Assistant
DX: M25.572 Pain in left ankle and joints of left foot (principal)

== ENCOUNTER 2024-08-22 17:20 | Emergency (ER) | payer BC, OTHER ==
[2024-08-22 17:24] VITALS: RESP 18; TEMP 98
--- NOTE | 2024-08-22 17:43 | ED ---
Skin/Abscess/FB HPI - General Chief complaint: Skin/Abscess/Foreign Body Stated complaint: Congestion,R foot toe pain Time Seen by Provider: 08/22/24 17:35 Source: patient, RN notes reviewed Mode of arrival: ambulatory Limitations: no limitations - History of Present Illness Initial comments: This is a 44-year-old female presents emergency department chief complaint of a ingrown left sided first toenail. States that her toe has been painful over the past 2 to 3 days however today she noticed that was a abscess forming to the lateral toenail. States that she has mild pain to ambulation. Additionally, patient states that she has been having upper respiratory infection symptoms including runny nose, nonproductive cough, congestion. Patient has not attempted any medications at home to alleviate symptoms. She denies fevers, chills, nausea, vomiting. - Related Data Home Medications Medication Instructions Recorded Confirmed Ibuprofen [Motrin Ib] 200 - 600 mg PO Q8H PRN 03/25/21 08/10/21 Acetaminophen Tab [Tylenol] 650 mg PO Q4H PRN 08/10/21 08/10/21 Dm/Acetaminophen/Doxylamine [Vicks 30 ml PO Q6H PRN 08/10/21 08/10/21 Nyquil Cold-Flu Liquid] Phenylephrine/Dm/Acetaminop/GG 20 ml PO Q4H PRN 08/10/21 08/10/21 [Mucinex Fast-Max Cold-Flu Liq] Previous Rx's Medication Instructions Recorded Albuterol Inhaler [Ventolin Hfa 2 puff INHALATION RT-TID #8 gm 08/08/21 Inhaler] Doxycycline Hyclate 100 mg PO BID 7 Days #14 tab 08/08/21 predniSONE [Deltasone] 40 mg PO DAILY 5 Days #10 tab 08/08/21 Benzonatate [Tessalon Perles] 200 mg PO Q8H PRN #15 cap 08/10/21 Amoxic-Pot Clav 875-125Mg 1 tab PO Q12HR #20 tablet 09/07/21 [Augmentin 875-125] Ibuprofen [Motrin] 800 mg PO Q8H 7 Days #21 tab 08/03/22 Ondansetron Odt [Zofran Odt] 4 mg PO Q8HR PRN #12 tab 08/03/22 Penicillin V Potassium [Pen Vee K] 500 mg PO QID #28 tablet 08/03/22 Ketorolac [Toradol] 10 mg PO Q6HR #15 tab 08/26/22 Ibuprofen [Motrin] 800 mg PO Q8HR PRN #30 tab 02/12/23 Metoclopramide [Reglan] 10 mg PO TID PRN #15 tab 02/12/23 Famotidine [Pepcid] 20 mg PO DAILY 7 Days #7 tablet 03/11/24 diphenhydrAMINE [Benadryl] 25 mg PO TID PRN 7 Days #21 capsule 03/11/24 predniSONE [Deltasone] 20 mg PO DAILY 7 Days #7 tab 03/11/24 Benzonatate [Tessalon Perles] 100 mg PO TID PRN #15 capsule 08/22/24 clindamycin HCL 300 mg PO QID #40 cap 08/22/24 Allergies Allergy/AdvReac Type Severity Reaction Status Date / Time venom-honey bee Allergy Anaphylaxis Verified 08/22/24 17:24 [bee venom (honey bee)] Review of Systems ROS Statement: Those systems with pertinent positive or pertinent negative responses have been documented in the HPI. ROS Other: All systems not noted in ROS Statement are negative. Past Medical History Past Medical History: GERD/Reflux Additional Past Medical History / Comment(s): Scoliosis, hiatal hernia, gastritis, freq UTI. Shortness of breath for 6 months, no testing but trying to quit smoking. c/o vomiting, diarrhea on/off for 5 years. History of Any Multi-Drug Resistant Organisms: None Reported Past Surgical History: Appendectomy, Cholecystectomy, Hernia Repair, Tubal Ligation Additional Past Surgical History / Comment(s): D&C, abd hernia Past Anesthesia/Blood Transfusion Reactions: No Reported Reaction Past Psychological History: Anxiety, Bipolar, Depression Smoking Status: Current every day smoker Past Alcohol Use History: Occasional Past Drug Use History: None Reported - Past Family History Mother Family Medical History: Cancer Additional Family Medical History / Comment(s): lymphoma General Exam Limitations: no limitations ENT exam: Present: normal exam, mucous membranes moist Neck exam: Present: normal inspection. Absent: tenderness, meningismus, lymphadenopathy Respiratory exam: Present: normal lung sounds bilaterally. Absent: respiratory distress, wheezes, rales, rhonchi, stridor Cardiovascular Exam: Present: regular rate, normal rhythm, normal heart sounds. Absent: systolic murmur, diastolic murmur, rubs, gallop, clicks GI/Abdominal exam: Present: soft, normal bowel sounds. Absent: distended, tenderness, guarding, rebound, rigid Left Foot/Toe exam: Present: tenderness (Great toe paronychia) Neurovascular tendon exam: Present: no vascular compromise. Absent: abnormal cap refill Gait: observed and normal Back exam: Present: normal inspection Skin exam: Present: warm, dry, intact, normal color. Absent: rash Course Vital Signs 08/22/24 17:21 Temperature 98.0 F Pulse Rate 105 H Respiratory 18 Rate Blood Pressure 117/80 O2 Sat by Pulse 99 Oximetry Medical Decision Making - Medical Decision Making Was pt. sent in by a medical professional or institution (ELVIN Mitchell, DIE MAKER APPRENTICE, urgent care, hospital, or longterm...) When possible be specific @ -No Did you speak to anyone other than the patient for history (EMS, parent, family, police, friend...)? What history was obtained from this source @ -No Did you review nursing and triage notes (agree or disagree)? Why? @ -I reviewed and agree with nursing and triage notes Were old charts reviewed (outside hosp., previous admission, EMS record, old EKG, old radiological studies, urgent care reports/EKG's, longterm records)? Report findings @ -No old charts were reviewed Differential Diagnosis (chest pain, altered mental status, abdominal pain women, abdominal pain men, vaginal bleeding, weakness, fever, dyspnea, syncope, headache, dizziness, GI bleed, back pain, seizure, CVA, palpatations, mental health, musculoskeletal)? @ -Paronychia, COVID 19, RSV, influenza, pneumonia, acute bronchitis, URI, this list is not all inclusive EKG interpreted by me (3pts min.). @ -None X-rays interpreted by me (1pt min.). @ -None done CT interpreted by me (1pt min.). @ -None done U/S interpreted by me (1pt. min.). @ -None done What testing was considered but not performed or refused? (CT, X-rays, U/S, labs)? Why? @ -X-ray was considered but deferred at this time. Patient's physical examination benign for adventitious sounds auscultated of the lung soni. Additionally patient's vitals are stable. There is minimal clinical concern for pulmonary pathology at this time. Patient did agree with deferring chest x-ray as well. What meds were considered but not given or refused? Why? @ -None Did you discuss the management of the patient with other professionals (professionals i.e. , PA, DIE MAKER APPRENTICE, lab, RT, psych nurse, social insurance specialist, dye mixer, teacher, human resource officer, machine adjuster leader case trim)? Give summary @ -No Was smoking cessation discussed for >3mins.? @ -No Was critical care preformed (if so, how long)? @ -No Were there social determinants of health that impacted care today? How? ( Homelessness, low income, unemployed, alcoholism, drug addiction, transportation, low edu. Level, literacy, decrease access to med. care, care home, rehab)? @ -No Was there de-escalation of care discussed even if they declined (Discuss DNR or withdrawal of care, Hospice)? DNR status @ -No What co-morbidities impacted this encounter? (DM, HTN, Smoking, COPD, CAD, Cancer, CVA, ARF, Chemo, Hep., AIDS, mental health diagnosis, sleep apnea, morbid obesity)? @ -None Was patient admitted / discharged? Hospital course, mention meds given and route, prescriptions, significant lab abnormalities, going to OR and other pertinent info. @ -Discharge. 44-year-old female with URI symptoms and painful left great toe. On examination patient noted to have paronychia of the left great toe. The abscess was incised with an 11 blade with drainage of purulent material. Patient's physical examination benign for acute processes. She will be provided a prescription for clindamycin and Tessalon Perles for paronychia and cough, respectively. Recommend that she complete full course of antibiotics and continue to soak the affected toe in a warm water and Epsom salt or antibacterial soak approximately 4 times a day. discussed with Dr. Alva Undiagnosed new problem with uncertain prognosis? @ -No Drug Therapy requiring intensive monitoring for toxicity (Heparin, Nitro, Insulin, Cardizem)? @ -No Were any procedures done? @ -No Diagnosis/symptom? @ -paronychia, cough, congestion Acute, or Chronic, or Acute on Chronic? @ -Acute Uncomplicated (without systemic symptoms) or Complicated (systemic symptoms)? @ -Uncomplicated Side effects of treatment? @ -No Exacerbation, Progression, or Severe Exacerbation? @ -No Poses a threat to life or bodily function? How? (Chest pain, USA, CT, pneumonia, PE, COPD, DKA, ARF, appy, cholecystitis, CVA, Diverticulitis, Homicidal, Suicidal, threat to staff... and all critical care pts) @ -No Disposition Clinical Impression: Paronychia due to ingrown nail, Cough, Head congestion Disposition: HOME SELF-CARE Condition: Good Additional Instructions: Please return to the Emergency Department if symptoms worsen or any other concerns. Take full course of antibiotics as prescribed. Recommend they continue warm soaks to the affected toe up to 4 times per day continue to keep area clean and dry as well. Take Tessalon Perles only as needed for breakthrough cough. Prescriptions: clindamycin HCL 300 mg PO QID #40 cap Benzonatate [Tessalon Perles] 100 mg PO TID PRN #15 capsule PRN Reason: Cough Is patient prescribed a controlled substance at d/c from ED?: No Referrals: Haim Ash MD [Primary Care Provider] - 1-2 days Time of Disposition: 17:53
[2024-08-22 18:18] VITALS: BP 115/80; PULSE 99
== END 2024-08-22 18:25 | disposition home or self-care (01) ==
LOC: EC 17:20
CPT/HCPCS: 99283

== ENCOUNTER 2025-02-15 13:45 | Emergency (ER) | payer BC, OTHER ==
[2025-02-15] MEDS: FAMOTIDINE 20 MG/2 ML VIAL IV STA (13:57)
[2025-02-15] MEDS: diphenhydrAMINE 50 MG/ML 1 ML VIAL IVP STA (13:58)
[2025-02-15] MEDS: methylPREDNISolone SOD SUCCI 125 MG/2 ML VIAL IV STA (13:59)
[2025-02-15] MEDS: ONDANSETRON 4 MG/2 ML VIAL IVP STA (14:03)
[2025-02-15] MEDS: SODIUM CHLORIDE 0.9% 1,000 ML IV ONE (14:04)
--- NOTE | 2025-02-15 14:07 | ED ---
Allergic Reaction HPI - General Chief complaint: Allergic Reaction Stated complaint: allergic reaction Time Seen by Provider: 02/15/25 13:51 Source: patient, RN notes reviewed Mode of arrival: ambulatory Limitations: no limitations - History of Present Illness Initial Comments: This is a 44-year-old female who presents to the emergency department for con cerns of an allergic reaction. Patient was diagnosed with a UTI and took Bactrim earlier today, approximately 30 minutes prior to arrival. Shortly afterwards she broke out in a rash from head to toe that is very itchy and she is concerned about an allergic reaction. She has however taken Bactrim several times in the past without any problem. Denies any chest pain or shortness of breath. She does have some associated nausea. MD Complaint: allergic reaction, hives - Related Data Home Medications Medication Instructions Recorded Confirmed Ibuprofen [Motrin Ib] 200 - 600 mg PO Q8H PRN 03/25/21 08/10/21 Acetaminophen Tab [Tylenol] 650 mg PO Q4H PRN 08/10/21 08/10/21 Dm/Acetaminophen/Doxylamine [Vicks 30 ml PO Q6H PRN 08/10/21 08/10/21 Nyquil Cold-Flu Liquid] Phenylephrine/Dm/Acetaminop/GG 20 ml PO Q4H PRN 08/10/21 08/10/21 [Mucinex Fast-Max Cold-Flu Liq] Previous Rx's Medication Instructions Recorded Albuterol Inhaler [Ventolin Hfa 2 puff INHALATION RT-TID #8 gm 08/08/21 Inhaler] Doxycycline Hyclate 100 mg PO BID 7 Days #14 tab 08/08/21 predniSONE [Deltasone] 40 mg PO DAILY 5 Days #10 tab 08/08/21 Benzonatate [Tessalon Perles] 200 mg PO Q8H PRN #15 cap 08/10/21 Amoxic-Pot Clav 875-125Mg 1 tab PO Q12HR #20 tablet 09/07/21 [Augmentin 875-125] Ibuprofen [Motrin] 800 mg PO Q8H 7 Days #21 tab 08/03/22 Ondansetron Odt [Zofran Odt] 4 mg PO Q8HR PRN #12 tab 08/03/22 Penicillin V Potassium [Pen Vee K] 500 mg PO QID #28 tablet 08/03/22 Ketorolac [Toradol] 10 mg PO Q6HR #15 tab 08/26/22 Ibuprofen [Motrin] 800 mg PO Q8HR PRN #30 tab 02/12/23 Metoclopramide [Reglan] 10 mg PO TID PRN #15 tab 02/12/23 Famotidine [Pepcid] 20 mg PO DAILY 7 Days #7 tablet 03/11/24 diphenhydrAMINE [Benadryl] 25 mg PO TID PRN 7 Days #21 capsule 03/11/24 predniSONE [Deltasone] 20 mg PO DAILY 7 Days #7 tab 03/11/24 Benzonatate [Tessalon Perles] 100 mg PO TID PRN #15 capsule 08/22/24 clindamycin HCL 300 mg PO QID #40 cap 08/22/24 Famotidine 40 mg PO DAILY 5 Days #5 tablet 02/15/25 Nitrofurantoin Monohyd/M-Cryst 100 mg PO Q12HR 5 Days #10 cap 02/15/25 [Macrobid] diphenhydrAMINE [Benadryl] 50 mg PO QID PRN #30 capsule 02/15/25 predniSONE 50 mg PO DAILY 5 Days #5 tab 02/15/25 Allergies Allergy/AdvReac Type Severity Reaction Status Date / Time venom-honey bee Allergy Anaphylaxis Verified 02/15/25 13:50 [bee venom (honey bee)] Review of Systems ROS Statement: Those systems with pertinent positive or pertinent negative responses have been documented in the HPI. ROS Other: All systems not noted in ROS Statement are negative. Past Medical History Past Medical History: GERD/Reflux Additional Past Medical History / Comment(s): Scoliosis, hiatal hernia, gastritis, freq UTI. Shortness of breath for 6 months, no testing but trying to quit smoking. c/o vomiting, diarrhea on/off for 5 years. History of Any Multi-Drug Resistant Organisms: None Reported Past Surgical History: Appendectomy, Cholecystectomy, Hernia Repair, Tubal Ligation Additional Past Surgical History / Comment(s): D&C, abd hernia Past Anesthesia/Blood Transfusion Reactions: No Reported Reaction Past Psychological History: Anxiety, Bipolar, Depression Smoking Status: Current every day smoker Past Alcohol Use History: Occasional Past Drug Use History: None Reported - Past Family History Mother Family Medical History: Cancer Additional Family Medical History / Comment(s): lymphoma General Exam Limitations: no limitations General appearance: alert, in no apparent distress Head exam: Present: atraumatic, normocephalic, normal inspection ENT exam: Present: normal exam, normal oropharynx, mucous membranes moist Respiratory exam: Present: normal lung sounds bilaterally. Absent: respiratory distress, wheezes, rales, rhonchi, stridor Cardiovascular Exam: Present: normal rhythm, tachycardia Neurological exam: Present: alert, oriented X3, CN II-XII intact Psychiatric exam: Present: normal affect, normal mood Skin exam: Present: other (Urticaria to the face, neck, trunk, and bilateral upper and lower extremities) Course Vital Signs 02/15/25 02/15/25 02/15/25 13:47 14:07 14:08 Temperature 97.4 F L Pulse Rate 122 H 61 Respiratory 18 17 20 Rate Blood Pressure 136/80 122/67 O2 Sat by Pulse 99 99 Oximetry 02/15/25 02/15/25 15:15 15:55 Temperature 97.8 F 98.2 F Pulse Rate 84 87 Respiratory 20 20 Rate Blood Pressure 112/60 110/58 O2 Sat by Pulse 100 98 Oximetry Medical Decision Making - Medical Decision Making This is a 44-year-old female who presents to the emergency department for a rash. Was pt. sent in by a medical professional or institution? @ -No Did you speak to anyone other than the patient for history? @ -No Did you review nursing and triage notes? @ -Yes, and I agree, it is accurate with regards to the patient's symptoms. Were old charts reviewed? @ -No Differential Diagnosis? @ -Roseola, measles, Lyme disease, erythema multiforme, cellulitis, toxic shock syndrome, Kieran Krunal syndrome, Kawasaki disease, karolyn mountain spotted fever, contact dermatitis, allergic dermatitis, measles, mumps, rubella, varicella, meningococcal disease, drug reaction, coxsackievirus, This is not meant to be an all-inclusive list. EKG interpreted by me (3pts min.)? @ -Not obtained X-rays interpreted by me (1pt min.)? @ -Not obtained CT interpreted by me (1pt min.)? @ -Not obtained U/S interpreted by me (1pt. min.)? @ -Not obtained What testing was considered but not performed? (CT, X-rays, U/S, labs)? Why? @ -None What meds were considered but not given? Why? @ -None Did you discuss the management of the patient with other professionals? @ -No Did you reconcile home meds? @ -No Was smoking cessation discussed for >3mins.? @ -No Was critical care preformed (if so, how long)? @ -No Were there social determinants of health that impacted care today? How? (Homelessness, low income, unemployed, alcoholism, drug addiction, transportation, low edu. Level, literacy, decrease access to med. care, fdc, rehab)? @ -No Was there de-escalation of care discussed even if they declined? (Discuss DNR or withdrawal of care, Hospice)? @ -No What co-morbidities impacted this encounter? (DM, HTN, Smoking, COPD, CAD, Cancer, CVA, Hep., AIDS, mental health diagnosis, sleep apnea, morbid obesity)? @ -None Was patient admitted / discharged? @ -Discharged. Physical examination and presentation consistent with ur ticaria. Allergy cocktail consisting of IV fluids, Solu-Medrol, Benadryl, and famotidine administered with significant improvement in symptoms. 1 g of ceftriaxone administered for the UTI and Macrobid was prescribed to be taken in place of the Bactrim. Prednisone, Benadryl, and famotidine prescribed as well for further management of the urticaria. Patient discharged home in stable condition. Case discussed with ED attending Dr. Alva. Return precautions reviewed in depth, the patient is instructed to return to the emergency department with any new, worsening, or concerning symptoms. Patient verbalized understanding. Undiagnosed new problem with uncertain prognosis? @ -None Drug Therapy requiring intensive monitoring for toxicity (Heparin, Nitro, Insulin, Cardizem)? @ -None Were any procedures done? @ -None Diagnosis/symptom? @ -Urticaria, allergic reaction, UTI Acute, or Chronic, or Acute on Chronic? @ -Acute Uncomplicated (without systemic symptoms) or Complicated (systemic symptoms)? @ -Uncomplicated Side effects of treatment? @ -None Exacerbation, Progression, or Severe Exacerbation] @ -Not applicable Poses a threat to life or bodily function? @ -No Disposition Clinical Impression: Allergic reaction, Urticaria, UTI (urinary tract infection) Disposition: HOME SELF-CARE Instructions (If sedation given, give patient instructions): Urticaria (ED) Additional Instructions: Return to the emergency department with any new, worsening, or concerning symptoms. Stop taking the Bactrim and take the new antibiotic as prescribed for 5 days. Take the prednisone and famotidine daily for 5 days. Take the Benadryl every 4-6 hours as needed for itching. Follow up with your primary care provider in 1-2 days. Prescriptions: diphenhydrAMINE [Benadryl] 50 mg PO QID PRN #30 capsule PRN Reason: Itching Famotidine 40 mg PO DAILY 5 Days #5 tablet Nitrofurantoin Monohyd/M-Cryst [Macrobid] 100 mg PO Q12HR 5 Days #10 cap predniSONE 50 mg PO DAILY 5 Days #5 tab Is patient prescribed a controlled substance at d/c from ED?: No Referrals: Haim Ash MD [Primary Care Provider] - 1-2 days Time of Disposition: 15:40
[2025-02-15 14:10] VITALS: RESP 20
[2025-02-15] MEDS: ACETAMINOPHEN TAB 500 MG TAB PO STA (15:12)
[2025-02-15] MEDS: cefTRIAXone IN SWFI 1,000 MG/10 ML SYRINGE IVP STA (15:13)
[2025-02-15 16:08] VITALS: BP 110/58; PULSE 87; TEMP 98.2
== END 2025-02-15 15:55 | disposition home or self-care (01) ==
LOC: EC 13:45
DX: T78.40XA Allergy, unspecified, initial encounter (principal); L50.0 Allergic urticaria; N39.0 Urinary tract infection, site not specified; F17.200 Nicotine dependence, unspecified, uncomplicated; Z91.030 Bee allergy status
CPT/HCPCS: 99283; 96374; 96375; 96361; J1200; J2405; J0696; J3490; J2919

== ENCOUNTER → 2025-02-28 | Outpatient (CLI) | payer BC, OTHER ==
--- NOTE | 2025-02-28 20:48 | XR ---
EXAMINATION TYPE: XR Hip Complete LT DATE OF EXAM: 02/28/2025 5:00 PM COMPARISON: None. CLINICAL INDICATION: Female, 44 years old with history of M25.552 PAIN IN LEFT HIP, pain TECHNIQUE: 2 view(s) obtained. FINDINGS: Femoral head articulates with the acetabulum. Joint space is preserved. No acute fracture or dislocat ion evident. IMPRESSION: 1. No acute osseous abnormality left hip [facility], , 02/28/2025 8:45 PM
--- NOTE | 2025-02-28 20:50 | XR ---
EXAMINATION TYPE: XR lumbosacral spine min 4V DATE OF EXAM: 02/28/2025 5:01 PM COMPARISON: 12/09/2019 CLINICAL INDICATION: Female, 44 years old with history of M25.552 PAIN IN LEFT HIP, pain TECHNIQUE: 5 view(s) obtained. FINDINGS: Scoliosis present with convexity to the left centered at L2. This may be increased from the compariso n study. There are 5 lumbar-type vertebral bodies. The pedicles are intact. Disc heights appear preserved. Marty tebral body heights are preserved. There is some limitation and facets due to rotation. Significant h ypertrophy is not identified. IMPRESSION: 1. Increasing scoliosis lumbar spine [facility], , 02/28/2025 8:47 PM
== END | disposition home or self-care (01) ==
LOC: RADXRMAIN 16:39
PROVIDERS: ATTEND Pediatrics
DX: M41.86 Other forms of scoliosis, lumbar region (principal)
CPT/HCPCS: 72110; 73502

== ENCOUNTER → 2025-04-02 | Outpatient (CLI) | payer BC, OTHER ==
[2025-04-03 12:37] LABS: Almond IgE <0.10 kU/L (<0.10); Almond IgE Class CLASS 0; Brazil Nut IgE <0.10 kU/L (<0.10); Brazil Nut IgE Class CLASS 0; Cashew IgE <0.10 kU/L (<0.10); Cashew IgE Class CLASS 0; English Plantain IgE Class CLASS 0; Hazelnut IgE <0.10 kU/L (<0.10); Hazelnut IgE Class CLASS 0; Oat IgE Class CLASS 0; Pistachio IgE Class CLASS 0
== END | disposition home or self-care (01) ==
LOC: LABWHC1 14:24
PROVIDERS: ATTEND Internal Medicine
DX: L50.9 Urticaria, unspecified (principal)
CPT/HCPCS: 36415; 86003

== ENCOUNTER → 2025-05-06 | Outpatient (CLI) | payer BC, OTHER ==
[2025-05-07 13:32] LABS: Pecan IgE <0.10 kU/L (<0.10); Pecan IgE Class CLASS 0
== END | disposition home or self-care (01) ==
LOC: LABWHC1 11:11
PROVIDERS: ATTEND Internal Medicine
DX: L50.9 Urticaria, unspecified (principal)
CPT/HCPCS: 36415; 86003

== ENCOUNTER 2025-05-07 16:32 | Emergency (ER) | payer BC ==
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
--- NOTE | 2025-05-07 17:47 | XR ---
EXAMINATION TYPE: XR ankle complete RT DATE OF EXAM: 05/07/2025 5:07 PM COMPARISON: None. CLINICAL INDICATION: Female, 44 years old with history of pain; PHH, pain TECHNIQUE: XR ankle complete RT; ankle is imaged in frontal, lateral and oblique projections. FINDINGS: There is no evidence of acute osseous pathology. No evidence of subluxation or dislocation. Kager's fat pad is intact. No radiopaque foreign bodies are identified. IMPRESSION: 1. No evidence of acute fracture. 2. Subcutaneous swelling around the ankle likely secondary to underlying soft tissue injury. [facility], , 05/07/2025 5:45 PM
--- NOTE | 2025-05-07 18:06 | XR ---
EXAMINATION TYPE: XR foot complete RT DATE OF EXAM: 05/07/2025 5:07 PM COMPARISON: None CLINICAL INDICATION: Female, 44 years old with history of pain; PHH, pain TECHNIQUE: XR foot complete RT examined in the AP, oblique, and lateral projections. FINDINGS: No evidence of any acute osseous pathology. No unexpected radiopaque foreign body. No focal osseous e rosion or aggressive periosteal reaction. IMPRESSION: No acute osseous abnormality. [facility], , 05/07/2025 6:03 PM
[2025-05-07 18:36] VITALS: BP 124/74; PULSE 92; RESP 18; TEMP 98
== END 2025-05-07 18:35 | disposition home or self-care (01) ==
LOC: EC 16:32
DX: S93.401A Sprain of unspecified ligament of right ankle, initial encounter (principal); F17.200 Nicotine dependence, unspecified, uncomplicated; Z88.2 Allergy status to sulfonamides; Z91.030 Bee allergy status; Z88.8 Allergy status to other drugs, medicaments and biological substances
CPT/HCPCS: 99283